=== PATIENT | female | born 1945 | race Caucasian/White ===

== ENCOUNTER 2018-09-16 12:32 | Outpatient (CLI) | payer MEDICARE, BC ==
--- NOTE | 2018-09-17 08:58 | Mammography Report ---
Reason: SCREENING MAMMO Procedure Date: 09/16/2018 Accession Number: [id number] / [id number] Procedure: GLENN - Screening Mammo w/Michael CPT Code: FULL RESULT: EXAM: Screening Mammo w/Michael DATE: 09/16/2018 1:06 PM CLINICAL HISTORY: Screening encounter. History of left breast lumpectomy without reported history of breast cancer. Family history of breast cancer in the mother at age 60. TECHNIQUE: Bilateral CC and MLO views were obtained. COMPARISON: 03/26/2015 through 08/09/2012. FINDINGS: The breasts demonstrate scattered fibroglandular densities bilaterally. Coarse typically benign calcifications are identified. No suspicious masses, clustered microcalcifications, or regions of architectural distortion are identified. IMPRESSION: Benign findings RECOMMENDATION: Routine annual screening unless otherwise clinically indicated. BIRADS CATEGORY 2: Benign findings STANDARD QUALIFYING STATEMENTS: 1. This examination was not reviewed with the aid of Computer-Aided Detection (CAD). 2. A negative or benign imaging report should not preclude biopsy if clinically suspicious findings are present. 3. Dense breasts may obscure an underlying neoplasm. 4. This examination was reviewed with the aid of 3D breast imaging (tomosynthesis).
== END 2018-09-16 12:33 | disposition home or self-care (01) ==
LOC: DI 12:32
PROVIDERS: ATTEND Internal Medicine
DX: Z12.31 Encounter for screening mammogram for malignant neoplasm of breast (principal); Z80.3 Family history of malignant neoplasm of breast
CPT/HCPCS: 77063; 77067

== ENCOUNTER 2019-08-15 16:20 | Outpatient (CLI) | payer MEDICARE, BC ==
--- NOTE | 2019-08-17 10:06 | XRAY Report ---
Reason: COUGH Procedure Date: 08/15/2019 Accession Number: [id number] / [id number] Procedure: XR - Chest 2 View X-Ray CPT Code: 56171 Final Report FULL RESULT: EXAM: CHEST RADIOGRAPHY EXAM DATE: 08/15/2019 04:31 PM. CLINICAL HISTORY: COUGH. COMPARISON: None. TECHNIQUE: 2 views. FINDINGS: Lungs/Pleura: Central bronchial wall thickening noted. No focal consolidation. No pleural effusion or pneumothorax. Mediastinum: Heart and mediastinal contours are unremarkable. Other: None. IMPRESSION: 1. Central bronchial wall thickening could reflect underlying reactive airways and bronchitis. No evidence of pneumonia. RADIA
== END 2019-08-15 16:21 | disposition home or self-care (01) ==
LOC: DI 16:20
PROVIDERS: ATTEND Internal Medicine
DX: R05 Cough (principal)
CPT/HCPCS: 71046

== ENCOUNTER 2019-09-03 13:11 | Outpatient (CLI) | payer MEDICARE, BC | END 2019-09-03 13:12 | disposition home or self-care (01) | LOC: RT 13:11 | PROVIDERS: ATTEND Internal Medicine | DX: R05 Cough (principal) | CPT/HCPCS: 94010 ==

== ENCOUNTER 2021-01-03 12:53 | Outpatient (CLI) | payer MEDICARE, BC ==
[2021-01-03 13:21] LABS: BASOPHILS # (AUTO) 0.1 10^3/uL (0.0-0.1); BASOPHILS % (AUTO) 0.9 %; EOSINOPHILS # (AUTO) 0.2 10^3/uL (0.0-0.7); EOSINOPHILS % (AUTO) 3.4 %; HCT - HEMATOCRIT 41.1 % (37.0-47.0); HGB - HEMOGLOBIN 13.5 g/dL (12.0-16.0); LYMPHOCYTES # (AUTO) 1.3 10^3/uL (1.5-3.5); LYMPHOCYTES % (AUTO) 23.3 %; MEAN CORPUSCULAR HEMOGLOBIN 31.6 pg (27.0-31.0); MEAN CORPUSCULAR HGB CONC 32.8 g/dL (32.0-36.0); MEAN CORPUSCULAR VOLUME 96.3 fL (81.0-99.0); MEAN PLATELET VOLUME 8.9 fL (7.9-10.8); MONOCYTES # (AUTO) 0.4 10^3/uL (0.0-1.0); MONOCYTES % (AUTO) 6.5 %; NEUTROPHILS # (AUTO) 3.6 10^3/uL (1.5-6.6); NEUTROPHILS % (AUTO) 65.5 %; PLT - PLATELET COUNT 201 10^3/uL (130-450); RED BLOOD COUNT 4.27 10^6/uL (4.20-5.40); RED CELL DISTRIBUTION WIDTH 12.6 % (12.0-15.0); WHITE BLOOD COUNT 5.5 x10^3/uL (4.8-10.8)
[2021-01-03 13:24] LABS: ALBUMIN 4.2 g/dL (3.2-5.5); ALBUMIN/GLOBULIN RATIO 1.3 (1.0-2.2); BILIRUBIN,TOTAL 0.4 mg/dL (0.2-1.0); CALCIUM 10.6 mg/dL (8.5-10.3); CREATININE 0.8 mg/dL (0.4-1.0); POTASSIUM 4.1 mmol/L (3.5-5.0); TOTAL PROTEIN 7.4 g/dL (6.7-8.2)
== END 2021-01-03 12:54 | disposition home or self-care (01) ==
LOC: LAB 12:53
PROVIDERS: ATTEND Internal Medicine Gastroenterology
DX: K51.90 Ulcerative colitis, unspecified, without complications (principal)
CPT/HCPCS: 36415; 80053; 85025

== ENCOUNTER 2022-08-05 08:00 | Outpatient (CLI) | payer MEDICARE, BC ==
[2022-08-05 15:54] LABS: BASOPHILS # (AUTO) 0.1 10^3/uL (0.0-0.1); BASOPHILS % (AUTO) 1.3 %; HGB - HEMOGLOBIN 13.5 g/dL (12.0-16.0); LYMPHOCYTES # (AUTO) 1.5 10^3/uL (1.5-3.5); LYMPHOCYTES % (AUTO) 24.1 %; MEAN CORPUSCULAR HEMOGLOBIN 30.8 pg (27.0-31.0); MEAN CORPUSCULAR HGB CONC 32.9 g/dL (32.0-36.0); MEAN CORPUSCULAR VOLUME 93.6 fL (81.0-99.0); MEAN PLATELET VOLUME 10.3 fL (7.9-10.8); MONOCYTES # (AUTO) 0.5 10^3/uL (0.0-1.0); MONOCYTES % (AUTO) 7.6 %; NEUTROPHILS # (AUTO) 4.2 10^3/uL (1.5-6.6); NEUTROPHILS % (AUTO) 66.8 %; PLT - PLATELET COUNT 218 10^3/uL (130-450); RED BLOOD COUNT 4.38 10^6/uL (4.20-5.40); RED CELL DISTRIBUTION WIDTH 12.2 % (12.0-15.0); WHITE BLOOD COUNT 6.3 x10^3/uL (4.8-10.8)
[2022-08-05 16:19] LABS: ALBUMIN 4.1 g/dL (3.2-5.5); ALBUMIN/GLOBULIN RATIO 1.3 (1.0-2.2); ALKALINE PHOSPHATASE 59 IU/L (42-121); ALT ALANINE AMINOTRANSFERASE 22 IU/L (10-60); AST ASPARTATE AMINOTRANSFERASE 20 IU/L (10-42); BILIRUBIN,TOTAL 0.6 mg/dL (0.2-1.0); BUN - BLOOD UREA NITROGEN 13 mg/dL (6-20); CALCIUM 9.4 mg/dL (8.5-10.3); CARBON DIOXIDE - CO2 25 mmol/L (21-32); CHLORIDE 97 mmol/L (101-111); CHOL/HDL RATIO 2.9 (<4.4); CHOLESTEROL 228 mg/dL; CREATININE 0.7 mg/dL (0.4-1.0); GFR - MDRD 82 (>89); GLUCOSE 94 mg/dL (70-100); HDL CHOLESTEROL 79 mg/dL; LDL CHOLESTEROL,CALCULATED 135 mg/dL; LDL/HDL RATIO 1.7 (<4.4); SODIUM 134 mmol/L (135-145); TOTAL PROTEIN 7.2 g/dL (6.7-8.2); TRIGLYCERIDES 70 mg/dL; VLDL CHOLESTEROL 14 mg/dL
[2022-08-05 22:14] LABS: ESTIMATED AVERAGE GLUCOSE 114 mg/dL (70-100); HEMOGLOBIN A1c% 5.6 % (4.27-6.07)
== END 2022-08-05 23:59 | disposition home or self-care (01) ==
LOC: LAB.R 08:00
PROVIDERS: ATTEND Internal Medicine
DX: Z00.00 Encounter for general adult medical examination without abnormal findings (principal); M25.50 Pain in unspecified joint; R73.01 Impaired fasting glucose; Z79.899 Other long term (current) drug therapy; L20.9 Atopic dermatitis, unspecified; J45.991 Cough variant asthma; R25.2 Cramp and spasm; L72.3 Sebaceous cyst; N95.1 Menopausal and female climacteric states; K51.90 Ulcerative colitis, unspecified, without complications
CPT/HCPCS: 80053; 80061; 83036; 83721; 84443; 85025

== ENCOUNTER 2023-09-11 15:58 | Outpatient (CLI) | payer MEDICARE, BC ==
--- NOTE | 2023-09-13 08:14 | XRAY Report ---
PROCEDURE: Hip w/Pelvis 2-3V RT INDICATIONS: PAIN IN RIGHT HIP TECHNIQUE: AP pelvis with lateral view(s) of the right hip(s). COMPARISON: None. FINDINGS: Bones: No fractures or dislocations. No suspicious bony lesions. Mild osteoarthritic changes in hip s and sacroiliac joint bilaterally. Bpaxrwkv-qq-vqsjjv degenerative disc disease in the lower lumbar spine. Soft tissues: No suspicious soft tissue calcifications or masses. Sclerotic densities projecting t o the left proximal thigh. IMPRESSION: 1. No acute bony abnormality. 2. Mild osteoarthritis. 3. Rhqjceww-mi-amsikr degenerative disc disease in the lower lumbar spine. 4. Sclerotic densities projecting to the left proximal thigh. Differential diagnoses are soft tissue ossification versus sclerotic bone lesions. Recommend 2 view left hip radiograph for further evaluat ion. Reviewed by: Kika Chavira MD on 09/13/2023 8:13 AM PST Approved by: Kika Chavira MD on 09/13/2023 8:13 AM PST Station ID: [id number]
== END 2023-09-11 15:59 | disposition home or self-care (01) ==
LOC: DI 15:58
PROVIDERS: ATTEND Internal Medicine
DX: M54.30 Sciatica, unspecified side (principal); M16.11 Unilateral primary osteoarthritis, right hip; M51.36 Other intervertebral disc degeneration, lumbar region; R93.6 Abnormal findings on diagnostic imaging of limbs

== ENCOUNTER 2023-10-16 11:11 | Outpatient (CLI) | payer MEDICARE, BC ==
--- NOTE | 2023-10-16 11:44 | XRAY Report ---
PROCEDURE: Hip w/Pelvis 2-3V LT INDICATIONS: HIP PAIN TECHNIQUE: AP and lateral view left hip were obtained. COMPARISON: Hip x-ray 09/11/2023 FINDINGS: No visualized fracture or dislocation. Bilateral mild to moderate arthritic narrowing of the hip join ts as well as prominent degenerative changes in the lower lumbar spine. Areas of calcification overlying the left hip seen on previous AP pelvis appear to be predominantly o verlying the soft tissues adjacent to the femur as seen on lateral view. However, despite lateral vie w, several areas of calcification still overlie the cortex. IMPRESSION: Calcifications appearing to be predominantly within the soft tissues adjacent to the left femur as ab ove. Further evaluation with CT pelvis is recommended for further evaluation of location and appearan ce. Reviewed by: Jess Pruett MD on 10/16/2023 11:43 AM PST Approved by: Jess Pruett MD on 10/16/2023 11:43 AM PST Station ID: [id number]
== END 2023-10-16 11:12 | disposition home or self-care (01) ==
LOC: DI 11:11
PROVIDERS: ATTEND Internal Medicine
DX: M25.551 Pain in right hip (principal); M79.9 Soft tissue disorder, unspecified

== ENCOUNTER 2023-11-06 11:20 | Outpatient (CLI) | payer MEDICARE, BC ==
[2023-11-06 11:33] LABS: BASOPHILS # (AUTO) 0.1 10^3/uL (0.0-0.1); BASOPHILS % (AUTO) 0.8 %; EOSINOPHILS % (AUTO) 0.3 %; HCT - HEMATOCRIT 38.8 % (37.0-47.0); HGB - HEMOGLOBIN 12.6 g/dL (12.0-16.0); LYMPHOCYTES # (AUTO) 1.4 10^3/uL (1.5-3.5); MEAN CORPUSCULAR HEMOGLOBIN 31.2 pg (27.0-31.0); MEAN CORPUSCULAR HGB CONC 32.5 g/dL (32.0-36.0); MEAN PLATELET VOLUME 8.6 fL (7.9-10.8); MONOCYTES # (AUTO) 0.4 10^3/uL (0.0-1.0); MONOCYTES % (AUTO) 5.9 %; NEUTROPHILS # (AUTO) 4.6 10^3/uL (1.5-6.6); NEUTROPHILS % (AUTO) 70.7 %; PLT - PLATELET COUNT 217 10^3/uL (130-450); RED BLOOD COUNT 4.04 10^6/uL (4.20-5.40); RED CELL DISTRIBUTION WIDTH 12.4 % (12.0-15.0); WHITE BLOOD COUNT 6.5 x10^3/uL (4.8-10.8)
[2023-11-06 11:58] LABS: ESTIMATED AVERAGE GLUCOSE 103 mg/dL (70-100); HEMOGLOBIN A1c% 5.2 % (4.27-6.07)
[2023-11-06 12:03] LABS: ALBUMIN 3.9 g/dL (3.2-5.5); ALBUMIN/GLOBULIN RATIO 1.3 (1.0-2.2); ALKALINE PHOSPHATASE 58 IU/L (42-121); ALT ALANINE AMINOTRANSFERASE 16 IU/L (10-60); AST ASPARTATE AMINOTRANSFERASE 18 IU/L (10-42); BILIRUBIN,TOTAL 0.5 mg/dL (0.2-1.0); BUN - BLOOD UREA NITROGEN 16 mg/dL (6-20); CALCIUM 9.6 mg/dL (8.5-10.3); CARBON DIOXIDE - CO2 29 mmol/L (21-32); CHLORIDE 103 mmol/L (101-111); CHOL/HDL RATIO 3.2 (<4.4); CHOLESTEROL 247 mg/dL; CREATININE 0.7 mg/dL (0.6-1.3); GFR - MDRD 81 (>89); GLUCOSE 100 mg/dL (74-104); HDL CHOLESTEROL 77 mg/dL; LDL CHOLESTEROL,CALCULATED 154 mg/dL; SODIUM 138 mmol/L (135-145); TOTAL PROTEIN 6.9 g/dL (6.4-8.9); TRIGLYCERIDES 82 mg/dL (48-352); VLDL CHOLESTEROL 16 mg/dL
[2023-11-06 12:10] LABS: THYROID STIMULATING HORMONE 1.39 uIU/mL (0.34-5.60)
== END 2023-11-06 11:21 | disposition home or self-care (01) ==
LOC: LAB 11:20
PROVIDERS: ATTEND Internal Medicine
DX: Z00.00 Encounter for general adult medical examination without abnormal findings (principal); J45.991 Cough variant asthma; R73.01 Impaired fasting glucose; R63.8 Other symptoms and signs concerning food and fluid intake; Z79.899 Other long term (current) drug therapy; K51.90 Ulcerative colitis, unspecified, without complications
CPT/HCPCS: 36415; 80053; 80061; 83036; 83721; 84443; 85025

== ENCOUNTER 2023-11-09 12:08 | Outpatient (CLI) | payer MEDICARE, BC ==
--- NOTE | 2023-11-09 16:43 | CT Report ---
PROCEDURE: Pelvis WO INDICATIONS: HIP PAIN TECHNIQUE: Noncontrast 3 mm axial sections acquired through the bony pelvis, with coronal and sagittal reformatt ing. For radiation dose reduction, the following was used: automated exposure control, adjustment of mA and/or kV according to patient size. COMPARISON: Pelvic radiograph dated 09/11/2023. FINDINGS: Image quality: Excellent. Bones: Pelvic ring is intact. No acute pelvic or hip fracture. No dislocation. Osteoarthritic change s are noted in bilateral hip joints, sacroiliac joints and symphysis pubis. No evidence of avascular necrosis of femoral head. No suspicious bony lesions. Degenerative disc disease involves visualized l ower lumbar spine is seen. Soft tissues: Amorphous calcifications are noted left right gluteus medius muscle posterior to the l eft femoral neck and proximal femoral shaft. No other abnormal soft tissue calcifications are seen. N o significant joint effusion or calcified intra-articular loose bodies. No discrete soft tissue mass or drainable fluid collection. There is no pelvic free fluid or free air. No abnormal bowel wall thic kening. Bladder wall thickness is normal. Sigmoid diverticulosis is seen without sigmoid diverticulit is. No pelvic lymphadenopathy. No inguinal hernia. IMPRESSION: 1. Moderate osteoarthritic changes throughout bony pelvis. No acute fracture or dislocation. No evide nce of avascular necrosis of femoral head. Degenerative disc disease in visualized lower lumbar spine . 2. Amorphous calcifications involving left gluteus medius muscle posterior to the left femoral neck a nd proximal shaft and likely represent heterotopic ossification secondary to prior injury/infection. No gross soft tissue mass or drainable fluid collection. No other abnormal soft tissue calcifications . No significant joint effusion or calcified intra-articular loose bodies. 3. No pelvic free fluid or free air. Sigmoid diverticulosis without evidence of acute diverticulitis. No pelvic lymphadenopathy. Reviewed by: Jean Canchola MD on 11/09/2023 4:42 PM PST Approved by: Jean Canchola MD on 11/09/2023 4:42 PM PST Station ID: [id number]
== END 2023-11-09 12:09 | disposition home or self-care (01) ==
LOC: DI 12:08
PROVIDERS: ATTEND Internal Medicine
DX: M16.0 Bilateral primary osteoarthritis of hip (principal); M51.36 Other intervertebral disc degeneration, lumbar region; M61.9 Calcification and ossification of muscle, unspecified; K57.30 Diverticulosis of large intestine without perforation or abscess without bleeding

== ENCOUNTER 2023-11-17 10:57 | Outpatient (CLI) | payer MEDICARE, BC ==
--- NOTE | 2023-11-18 11:33 | Mammography Report ---
BILATERAL DIGITAL SCREENING MAMMOGRAM 3D/2D: 11/17/2023 CLINICAL: Routine screening. Comparison is made to exams dated: 01/12/2022 mammogram, 09/16/2018 mammogram, and 03/13/2015 mammogram - [facility]. There are scattered areas of fibroglandular density in both breasts (category b / 25%-50% glandular t issue). There is a possible new irregular focal asymmetry in the right breast at 10 o'clock posterior depth. No other significant masses, calcifications, or other findings are seen in either breast. IMPRESSION: INCOMPLETE: NEEDS ADDITIONAL IMAGING EVALUATION The possible new irregular focal asymmetry in the right breast is indeterminate. Additional views wi th possible ultrasound are recommended. Based on the Tyrer Cuzick model (a risk assessment model) the patient's lifetime risk is 6.0% and her 10 year risk is 0.0%. According to the ACR, ACS, and NCCN guidelines, an annual breast MRI exam yannick g with mammogram is recommended if the patient's lifetime risk is 20% or greater. This exam was interpreted at Station ID: [id number]. NOTE: For mammograms, a report in lay terms will be sent to the patient. Approximately 15% of breast malignancies will not be visualized mammographically. In the management of a palpable breast mass, a negative mammogram must not discourage biopsy of a clinically suspicious lesion. Electronically Signed By: Primo mclean/milagros:11/17/2023 12:24:29 ACR BI-RADS Category 0: Incomplete 3340F PARENCHYMAL PATTERN: (A) - The breast(s) demonstrate(s) scattered fibroglandular densities. BI-RADS CATEGORY: (0) - 0 Mammo and [place] [id number] Immediate follow-up LATERALITY: (R)
== END 2023-11-17 10:58 | disposition home or self-care (01) ==
LOC: DI 10:57
PROVIDERS: ATTEND Internal Medicine
DX: Z12.31 Encounter for screening mammogram for malignant neoplasm of breast (principal); R92.323 Mammographic fibroglandular density, bilateral breasts

== ENCOUNTER 2023-12-22 12:53 | Outpatient (CLI) | payer MEDICARE, BC ==
--- NOTE | 2023-12-23 09:41 | Mammography Report ---
UNILATERAL RIGHT DIGITAL DIAGNOSTIC MAMMOGRAM 3D/2D WITH SPOT COMPRESSION: 12/22/2023 CLINICAL: Patient returns today to evaluate a focal asymmetry in the right breast. Comparison is made to exams dated: 11/17/2023 mammogram, 01/12/2022 mammogram, 09/16/2018 mammogram, 03/26 mammogram, 03/13/2015 mammogram, and 02/06/2014 mammogram - [facility]. There are scattered areas of fibroglandular density in the right breast (category b / 25%-50% glandul ar tissue). There is a 0.9 cm irregular mass with a spiculated margin in the right breast at 9 o'clock posterior depth. This corresponds to focal asymmetry seen on recent screening mammogram. No other significant masses or calcifications are seen in the breast. IMPRESSION: INCOMPLETE: NEEDS ADDITIONAL IMAGING EVALUATION Right breast 0.9 cm irregular mass at 9 o'clock posterior depth. An ultrasound is recommended for fur ther evaluation and is scheduled to immediately follow this examination. Based on the Tyrer Cuzick model (a risk assessment model) the patient's lifetime risk is 6.0% and her 10 year risk is 0.0%. According to the ACR, ACS, and NCCN guidelines, an annual breast MRI exam yannick g with mammogram is recommended if the patient's lifetime risk is 20% or greater. This exam was interpreted at Station ID: [id number]. NOTE: For mammograms, a report in lay terms will be sent to the patient. Approximately 15% of breast malignancies will not be visualized mammographically. In the management of a palpable breast mass, a negative mammogram must not discourage biopsy of a clinically suspicious lesion. Electronically Signed By: Minerva Durham M.D., PH.D eb/:12/22/2023 14:12:09 ACR BI-RADS Category 0: Incomplete 3340F PARENCHYMAL PATTERN: (A) - The breast(s) demonstrate(s) scattered fibroglandular densities. BI-RADS CATEGORY: (0) - 0 Ultrasound [id number] Immediate follow-up LATERALITY: (B)
--- NOTE | 2023-12-23 09:42 | Ultrasound Report ---
LIMITED ULTRASOUND OF RIGHT BREAST AND AXILLA: 12/22/2023 CLINICAL: Patient returns today to evaluate a focal asymmetry in the right breast. Comparison is made to exams dated: 12/22/2023 mammogram, 11/17/2023 mammogram, 01/12/2022 mammogram, 09/16 mammogram, 03/26/2015 mammogram, and 03/13/2015 mammogram - [facility]. Color flow ultrasound of the right breast 9 o'clock, and axilla regions was performed. Lemon scale im ages of the real-time examination were reviewed. There is a 0.9 cm x 1.0 cm x 0.9 cm irregular mass with a spiculated margin in the right breast at 9 o'clock, 8 cm from the nipple. This mass corresponds to the mammographic mass. No abnormal lymph nodes are seen in the axilla. IMPRESSION: SUSPICIOUS OF MALIGNANCY Right breast 1.0 cm spiculated mass at 9 o'clock. Finding is suspicious of malignancy. Recommend ult rasound guided core biopsy. Findings and recommendations were discussed with the patient by Dr. Griffiths during today's examination. This exam was interpreted at Station ID: [id number]. Electronically Signed By: Minerva Durham M.D., PH.D eb/:12/22/2023 14:20:56 Ultrasound BI-RADS: 4 Suspicious for malignancy BI-RADS CATEGORY: (4) - 4 Biopsy [id number] Immediate follow-up LATERALITY: (R)
== END 2023-12-22 12:54 | disposition home or self-care (01) ==
LOC: DI 12:53
PROVIDERS: ATTEND Internal Medicine
DX: N63.15 Unspecified lump in the right breast, overlapping quadrants (principal); R92.321 Mammographic fibroglandular density, right breast

== ENCOUNTER 2024-01-11 13:51 | Outpatient (CLI) | payer MEDICARE, BC ==
[2024-01-11] MEDS ORDERED: LIDOCAINE-MPF 1% 5 ML VIAL ONE (15:26)
[2024-01-11] MEDS ORDERED: LIDOCAINE 1%-EPI 1:100000 20 ML MDV ONE (15:26)
[2024-01-11] MEDS: LIDOCAINE-MPF 1% 5 ML VIAL TD ONE (15:39)
[2024-01-11] MEDS: LIDOCAINE 1%-EPI 1:100000 20 ML MDV SUBQ ONE (15:40)
--- NOTE | 2024-01-13 10:12 | Mammography Report ---
UNILATERAL RIGHT DIGITAL DIAGNOSTIC MAMMOGRAM - RIGHT BREAST POST-PROCEDURE IMAGING FOR MARKER PLACEM ENT: 01/11/2024 CLINICAL: Post right breast ultrasound biopsy clip placement imaging. Comparison is made to exams dated: 12/22/2023 mammogram, 12/22/2023 ultrasound, 11/17/2023 mammogram, an d 01/12/2022 mammogram - [facility]. There are scattered areas of fibroglandular density in the right breast (category b / 25%-50% glandul ar tissue). There is a marker clip in the right breast at 11 o'clock posterior depth. This marker clip placement is along the medial margin of the asymmetry, about 0.8 cm from the epicenter of the mass and about 0 .9 cm deep to the epicenter of the mass. IMPRESSION: POST PROCEDURE MAMMOGRAM FOR MARKER PLACEMENT Marker clip placement in the right breast posterior depth is at the biopsy site, slightly medial and deep to the epicenter of the mass. Based on the Tyrer Cuzick model (a risk assessment model) the patient's lifetime risk is 6.0% and her 10 year risk is 0.0%. According to the ACR, ACS, and NCCN guidelines, an annual breast MRI exam yannick g with mammogram is recommended if the patient's lifetime risk is 20% or greater. This exam was interpreted at Station ID: [id number]. NOTE: For mammograms, a report in lay terms will be sent to the patient. Approximately 15% of breast malignancies will not be visualized mammographically. In the management of a palpable breast mass, a negative mammogram must not discourage biopsy of a clinically suspicious lesion. Electronically Signed By: Daisy forbes/:01/12/2024 10:13:06 ACR BI-RADS Category Post-procedure mammogram for marker placement PARENCHYMAL PATTERN: (A) - The breast(s) demonstrate(s) scattered fibroglandular densities. BI-RADS CATEGORY: () - Unspecified - other recall n/a LATERALITY: (B)
--- NOTE | 2024-01-15 10:33 | Ultrasound Report ---
ULTRASOUND GUIDED BIOPSY RIGHT BREAST USING VACUUM DEVICE WITH MARKING DEVICE INSERTED AND POST DIGIT AL MAMMOGRAPHIC IMAGIN01/12/2024 CLINICAL: Right breast mass. PATIENT CONSENT: Risks (minor bleeding, infection, vasovagal reaction and repeat procedure), benefits and alternatives were explained to the patient and written informed consent was obtained. Correlation is made to exams dated: 01/11/2024 mammogram, 12/22/2023 ultrasound, 12/22/2023 mammogram, mammogram, 01/12/2022 mammogram, and 09/16/2018 mammogram - [facility]. An ultrasound guided biopsy using real-time ultrasound was performed for the 0.7 cm x 0.7 cm x 0.5 cm mass located in the right breast at 9 o'clock middle depth 8 cm from the nipple. The skin was prepp ed in the usual manner. Local anesthetic was administered to the access site. A skin samantha was made in the breast. The abnormality was approached from the lateral aspect. A 13 gauge biopsy needle was placed adjacent to the abnormality under ultrasound guidance. Once the needle was documented to be in the correct location, four specimens were obtained using the Mammotome biopsy system. The patient received additional local anesthetic during the procedure. A clip was inserted into the biopsy cavity. A skin closure strip and a sterile dressing were applied to the access site. Post procedure digital mammographic imaging demonstrates the location device 0. 8cm medial, 0.8cm posterior from the geometric center of the targeted area. The specimens were sent to the laboratory for pathological analysis. IMPRESSION: ULTRASOUND GUIDED BIOPSY MALIGNANT Ultrasound guided biopsy of the 0.7 cm x 0.7 cm x 0.5 cm mass in the right breast at 9 o'clock middle depth 8 cm from the nipple was successful. Pathology indicates malignant invasive ductal carcinoma (ID). Pathology results are concordant with imaging findings. A surgical/oncologic consultation is recommended. This exam was interpreted at Station ID: [id number]. Daisy forbes,slc/:01/14/2024 13:15:45 BI-RADS CATEGORY: () - Unspecified - other recall n/a LATERALITY: (B)
== END 2024-01-11 13:52 | disposition home or self-care (01) ==
LOC: DI 13:51
PROVIDERS: ATTEND Internal Medicine
DX: C50.811 Malignant neoplasm of overlapping sites of right female breast (principal); Z17.0 Estrogen receptor positive status [ER+]
CPT/HCPCS: 19083

== ENCOUNTER 2024-03-21 07:25 | Day surgery (SDC) | payer MEDICARE, BC ==
[~2024-03-21 07:25] MED LIST: ACETAMINOPHEN 500 MG TABLET PO ONE; ALPRAZolam 0.25 MG TABLET PO ONE; ceFAZolin 2 GM VIAL ONE
[2024-03-21] MEDS ORDERED: LIDOCAINE 1%-EPI 1:100000 20 ML MDV ONE (07:52)
[2024-03-21] MEDS ORDERED: fentaNYL 100 MCG/2 ML VIAL ONE ×2 (07:52→09:42)
[2024-03-21] MEDS ORDERED: BUPIVACAINE 0.5% PF 10 ML VIAL ONE (07:52)
[2024-03-21] MEDS ORDERED: LIDOCAINE-MPF 1% 5 ML VIAL ONE (07:57)
--- NOTE | 2024-03-21 08:20 | ANESTHESIA ---
Pre-Anesthesia VS, & Labs - Diagnosis breast node - Procedure breast lumpectomy R Vital Signs: Temp Pulse Resp BP Pulse Ox O2 Flow Rate 36.7 C 69 15 130/71 100 03/21/24 07:50 03/21/24 07:50 03/21/24 07:50 03/21/24 07:50 03/21/24 07:50 Height: 5 ft 6 in Weight (kg): 71 kg Body Mass Index: 25.2 BMI Classification: Overweight - NPO >8 hours - Is Patient ?: No Home Medications and Allergies Home Medications: Ambulatory Orders Aspirin [Aspirin EC] 1 - 2 tab PO DAILY 03/11/24 Cholecalciferol (Vitamin D3) [Vitamin D3] 50 mcg PO DAILY 03/11/24 Calcium Carb/Vit D3/Minerals [Eql Calcium 600+D & Min Ch Tb] 2 each PO DAILY 12/25/15 Mesalamine [Lialda] 2 tab PO BID 12/25/15 Omeprazole 20 mg PO DAILY 12/25/15 Cetirizine [ZyrTEC] 40 mg PO DAILY 02/02/24 Fluticasone Propion/Salmeterol [Wixela 250-50 Inhub] 1 each IH BID 02/02/24 Fluticasone Propionate 1 inh GERARD DAILY 02/02/24 Meclizine HCl 25 mg PO PRN PRN 02/02/24 Potassium Citrate [Potassium] 1 - 2 tab PO DAILY 02/02/24 Propylene Glycol/Peg 400/Pf [Systane Ultra 0.4-0.3% Eye Drp] 1 each OP PRN PRN 02/02/24 Aspirin [Aspirin EC] 1 - 2 tab PO DAILY 03/11/24 Cholecalciferol (Vitamin D3) [Vitamin D3] 50 mcg PO DAILY 03/11/24 Allergies/Adverse Reactions: Allergies Allergy/AdvReac Type Severity Reaction Status Date / Time Penicillins Allergy Respiratory Verified 02/02/24 16:02 Anes History & Medical History - Anesthetic History Anesthesia Complications: reports: No previous complications Family history of Anesthesia Complications: Denies Family history of Malignant Hyperthermia: Denies - Medical History Cardiovascular: reports: None Pulmonary: reports: Asthma Gastrointestinal: reports: GERD, Colon polyps, Ulcerative colitis Urinary: reports: None Neuro: reports: None Musculoskeletal: reports: Osteoarthritis Endocrine/Autoimmune: reports: None Blood Disorders: reports: None Skin: reports: None Smoking Status: Former smoker Psychosocial: reports: No issues indicated History of Cancer?: No - Surgical History General: reports: Colonoscopy Eyes Ears Nose Throat (EENT): reports: Tonsil/Adenoidectomy Gynecologic: reports: Tubal ligation, Hysterectomy Results - EKG Results EKG Comparison: Reviewed EKG, Normal EKG Exam General: Alert, Oriented x3, Cooperative, No acute distress Dental: TMJ, Poor dentition Mouth Openin Fingerbreadth Neck Mobility: Normal Mallampati classification: I Thyromental Distance: 4-6 cm Respiratory: Lungs clear, Normal breath sounds, No respiratory distress, No accessory muscle use Cardiovascular: Regular rate, Normal S1, Normal S2, No murmurs Mental/Cognitive Status: Alert/Oriented X3, Normal for patient Cognitive Status: Within normal limits Plan Anesthesia Type: General Consent for Procedure(s) Verified and Reviewed: Yes Code Status: Attempt Resuscitation ASA classification: 2-Mild systemic disease Is this case an emergency?: No
[2024-03-21] MEDS ORDERED: DEXAMETHASONE 4 MG/ML VIAL ONE ×2 (08:53→09:42)
[2024-03-21] MEDS ORDERED: ONDANSETRON 4 MG/2 ML VIAL ONE ×2 (08:53→09:42)
[2024-03-21] MEDS ORDERED: diphenhydrAMINE INJ 50 MG/ML VIAL ONE ×2 (08:53→09:42)
[2024-03-21] MEDS ORDERED: LIDOCAINE-PF 2% 10 ML AMP SUBQ ONE ×2 (09:06→09:42)
[2024-03-21] MEDS ORDERED: PROPOFOL 200 MG/20 ML VIAL IVP ONE ×4 (09:06→09:42)
[2024-03-21] MEDS: LIDOCAINE-MPF 1% 5 ML VIAL TD ONE (09:26)
[2024-03-21] MEDS ORDERED: PHENYLEPHRINE HCL 0.5 MG/5 ML AMPULE ONE (09:43)
[2024-03-21] MEDS ORDERED: ePHEDrine 50 MG/ML VIAL IVP ONE (09:44)
[2024-03-21] MEDS: BUPIVACAINE 0.5% PF 10 ML VIAL SUBQ ONE ×2 (10:02)
[2024-03-21] MEDS: LIDOCAINE 1%-EPI 1:100000 20 ML MDV SUBQ ONE ×2 (10:02)
[2024-03-21] MEDS ORDERED: IBUPROFEN 400 MG TABLET PO PRN (10:50)
[2024-03-21] MEDS ORDERED: oxyCODONE 5 MG TABLET PO PRN (10:50)
[2024-03-21] MEDS ORDERED: ACETAMINOPHEN 500 MG TABLET PO PRN (10:50)
[2024-03-21] MEDS ORDERED: ONDANSETRON 4 MG/2 ML VIAL IVP PRN ×2 (10:50→11:00)
[2024-03-21] MEDS ORDERED: HYDROmorphone 0.5 MG/0.5 ML SYRINGE IVP PRN ×2 (10:50→11:00)
[2024-03-21] MEDS: LACTATED RINGERS 1,000 ML IV ONE (10:53)
--- NOTE | 2024-03-21 10:56 | OPERATIVE REPORT ---
Operative Report - General Procedure Date: 03/21/24 Planned Procedure: right lumpectomy with wire localization Pre-Op Diagnosis: invasive ductal carcinoma Procedure Performed: right lumpectomy with wire localization Post Op Diagnosis: invasive ductal carcinoma - Procedure Note Primary Surgeon: Dr. Mihaela Hernandez Anesthesia Provider: Michelle Lu CRNA Anesthesia Technique: General LMA Pathology: 1.right lumpectomy 2. re excision of medial margin Estimated Blood Loss (mL): 10 Indications: The patient presented for her screening mammogram and had an abnormal finding. Subsequent imaging and biopsy revealed a small invasive ductal carcinoma in the right breast. She was seen and evaluated in clinic where we discussed the risks, benefits, and alternatives of lumpectomy versus mastectomy. Risks include bleeding, infection, damage to surrounding structures, positive margin requiring reexcision, numbness and pain in the area of the incision, and the need for further surgeries or procedures. In discussion with her medical oncologist, sentinel lymph node biopsy was not recommended as it is unlikely to change her course of treatment. The patient voiced understanding, her questions were answered, and she wished to proceed with wire localized lumpectomy of the right breast. A consent was signed in clinic. Findings: 1. Clip present in lumpectomy specimen on specimen mammogram, medial margin palpably close 2. Medial margin reexcised Complications: None - Other Other Information/Narrative: The patient was taken to the operating room and placed in the supine position. Preop antibiotics were given. ERAS medications were given. The patient was prepped and draped in the usual sterile fashion. A preop surgical timeout was performed. Attention was turned to the patient's right breast. An incision was made following the patient's skin folds, at the 9 o'clock position, N + 5. Skin flaps were raised superiorly and inferiorly to the incision and the wire was incorporated into the incision. The dissection was carried down to the thick part of the wire using electrocautery. At this point, serrated scissors were used to perform a lumpectomy staying approximately 1 cm away from the wire in all dimensions. The lumpectomy specimen was removed and oriented with suture on the back table. At this time, the medial margin was noted to be palpably close on the specimen. The specimen was sent to mammography and the biopsy clip was confirmed to be within the specimen.The edges of the lumpectomy cavity were inspected and there were no palpable abnormalities but due to the palpably close lesion on inspection of the specimen, I elected to reexcised medial margin. This was also oriented and sent as a separate specimen.. Hemostasis was confirmed. The lumpectomy cavity was irrigated with warm normal saline. Clips were placed in the superior, inferior, medial, lateral, anterior, and posterior margins of the lumpectomy cavity. The deep dermal tissues were closed with 3-0 Vicryl in an interrupted fashion. The skin was closed with 4-0 Monocryl in a running subcuticular fashion. The patient tolerated the procedure well. There were no complications. Synoptic Breast SNB - [place] Node Biopsy Operation performed with curative intent: Yes Tracer(s) used to identify sentinel nodes in the upfront surgery (non- neoadjuvant) setting (select all that apply): N/A (No sentinel lymph node evaluation was undertaken at the recommendation of medical oncologist as it is unlikely to sports management professor in this patient due to advanced age.) Tracer(s) used to identify sentinel nodes in the neoadjuvant setting (select all that apply): N/A All nodes (colored or non-colored) present at the end of a dye-filled lymphatic channel were removed: N/A All significantly radioactive nodes were removed: N/A All palpably suspicious nodes were removed: N/A Biopsy-proven positive nodes marked with clips prior to chemotherapy were identified and removed: N/A
[2024-03-21] MEDS ORDERED: ATROPINE ABBOJECT 1 MG/10 ML SYRINGE IVP PRN (11:00)
[2024-03-21] MEDS ORDERED: LACTATED RINGERS 1,000 ML IV SCH (11:00)
[2024-03-21] MEDS ORDERED: MORPHINE 2 MG/ML CARPUJECT IVP PRN (11:00)
[2024-03-21] MEDS ORDERED: NALOXONE 0.4 MG/ML VIAL IVP PRN (11:00)
[2024-03-21] MEDS ORDERED: fentaNYL 100 MCG/2 ML VIAL IVP PRN (11:00)
[2024-03-21] MEDS ORDERED: ePHEDrine 50 MG/ML VIAL IVP PRN (11:00)
[2024-03-21 11:17] VITALS: O2SAT 98
[2024-03-21 12:03] VITALS: BP 109/60
--- NOTE | 2024-03-21 16:55 | ANESTHESIA POST OP EVALUATION ---
Anesthesia Post Eval - Post Anesthesia Eval Vitals: Last Vital Signs Temp 36.6 C 03/21/24 11:55 Pulse 66 03/21/24 11:55 Resp 16 03/21/24 11:55 BP 109/60 03/21/24 11:55 Pulse Ox 98 03/21/24 11:55 O2 Flow Rate CV Function Including HR & BP: Stable Pain Control: Satisfactory Nausea & Vomiting: Negative Mental Status: Baseline Respiratory Status: Airway Patent Hydration Status: Satisfactory Anesthesia Complications: None
--- NOTE | 2024-03-23 09:26 | Ultrasound Report ---
ULTRASOUND GUIDED WIRE LOCALIZATION RIGHT BREAST: 03/21/2024 CLINICAL: Pre op Right Breast wire localization with ultrasound. Correlation is made to exams dated: 01/12/2024 ultrasound biopsy, 01/11/2024 mammogram, 12/22/2023 ultras ound, 12/22/2023 mammogram, 11/17/2023 mammogram, and 01/12/2022 mammogram - [facility]. A wire localization using ultrasound guidance was performed for the 0.9 cm x 1 cm x 0.9 cm lesion loc ated in the right breast at 9 o'clock posterior depth 8 cm from the nipple. The skin was prepped in the usual manner. A wire was inserted into the targeted area under ultrasound guidance. IMPRESSION: WIRE LOCALIZATION Wire localization for the 0.9 cm x 1 cm x 0.9 cm lesion in the right breast at 9 o'clock posterior de pth 8 cm from the nipple was successful. This exam was interpreted at Station ID: [id number]. Michele Segura M.D. crm/:03/23/2024 08:45:23 BI-RADS CATEGORY: () - Unspecified - other recall n/a LATERALITY: (B)
--- NOTE | 2024-03-23 09:26 | Mammography Report ---
SPECIMEN RIGHT BREAST: 03/21/2024 CLINICAL: Right breast specimen. Correlation is made to exams dated: 03/21/2024 mammogram, 01/12/2024 ultrasound biopsy, 01/11/2024 mammog mitul, 12/22/2023 ultrasound, 12/22/2023 mammogram, and 11/17/2023 mammogram - [facility] . A specimen was imaged for the previous biopsy site located in the right breast at 9 o'clock middle d epth 8 cm from the nipple. IMPRESSION: SPECIMEN The imaged specimen includes a biopsy clip and the distal portion of the localization wire. This exam was interpreted at Station ID: [id number]. Michele Segura M.D. crm/:03/23/2024 08:53:10 BI-RADS CATEGORY: () - Unspecified - other recall n/a LATERALITY: (B)
--- NOTE | 2024-03-23 09:26 | Mammography Report ---
UNILATERAL RIGHT DIGITAL DIAGNOSTIC MAMMOGRAM 3D/2D WITH EXAGGERATED CC MEDIOLATERAL OBLIQUE: 03/21/20 24 CLINICAL: Post right breast wire placement. Comparison is made to exams dated: 01/12/2024 ultrasound biopsy, 01/11/2024 mammogram, 12/22/2023 ultraso und, 12/22/2023 mammogram, and 11/17/2023 mammogram - [facility]. There are scattered areas of fibroglandular density in the right breast (category b / 25%-50% glandul ar tissue). Wire localization of a mass in the right breast at 9 o'clock middle depth 8 cm from the nipple. Ther e is a biopsy clip associated with the mass. IMPRESSION: NEGATIVE Wire localization of a mass in the right breast at 9 o'clock middle depth 8 cm from the nipple. This exam was interpreted at Station ID: [id number]. NOTE: For mammograms, a report in lay terms will be sent to the patient. Approximately 15% of breast malignancies will not be visualized mammographically. In the management of a palpable breast mass, a negative mammogram must not discourage biopsy of a clinically suspicious lesion. Electronically Signed By: Michele Segura M.D. crm/:03/23/2024 08:50:54 ACR BI-RADS Category 1: Negative 3341F PARENCHYMAL PATTERN: (A) - The breast(s) demonstrate(s) scattered fibroglandular densities. BI-RADS CATEGORY: (1) - 1 Unspecified - other recall n/a LATERALITY: (B)
== END 2024-03-21 07:26 | disposition home or self-care (01) ==
LOC: DI 07:25
PROVIDERS: ATTEND Surgery
PROC: 0HBT0ZZ Excision of Right Breast, Open Approach (ICD-10-PCS; principal; 2024-03-21 09:30)
DX: C50.811 Malignant neoplasm of overlapping sites of right female breast (principal); Z17.0 Estrogen receptor positive status [ER+]; J45.909 Unspecified asthma, uncomplicated; Z87.891 Personal history of nicotine dependence
CPT/HCPCS: 19285; 19301; 76098; 77065; A9270; J1200; J2372; J7120

== ENCOUNTER 2024-06-09 15:52 | Emergency (ER) | payer MEDICARE, BC ==
[2024-06-09 16:18] VITALS: O2SAT 100
--- NOTE | 2024-06-09 16:27 | ED Physician Documentation ---
History of Present Illness - Stated complaint Stated Complaint: FACE LAC POST FALL - Chief complaint Chief Complaint: Laceration - Additonal information Additional information: 78-year-old female with history of asthma and ulcerative colitis presents emergency department for left eyebrow superficial laceration. Patient says that it was a mechanical ground-level fall she tripped over a hose and says that she fell onto her left eyebrow she says it was a very gentle fall no loss of consciousness she is not on blood thinners she denies any head pain or neck pain bleeding is well-controlled. PD PAST MEDICAL HISTORY - Past Medical History Past Medical History: Yes Cardiovascular: None Respiratory: Asthma Neuro: None Endocrine/Autoimmune: None GI: GERD, Colon polyps, Ulcerative colitis : None HEENT: Chronic vision loss Psych: None Musculoskeletal: Osteoarthritis Derm: None - Past Surgical History Past Surgical History: No General: Colonoscopy /[employer]: Tubal ligation, Hysterectomy HEENT: Tonsil/Adenoidectomy - Present Medications Home Medications: Ambulatory Orders Medication Instructions Recorded Confirmed Calcium Carb/Vit D3/Minerals [Eql 2 each PO DAILY 12/25/15 04/12/24 Calcium 600+D & Min Ch Tb] Mesalamine [Lialda] 2 tab PO BID 12/25/15 04/12/24 Omeprazole 20 mg PO DAILY 12/25/15 04/12/24 Cetirizine [ZyrTEC] 40 mg PO DAILY 02/02/24 04/12/24 Fluticasone Propion/Salmeterol 1 each IH BID 02/02/24 04/12/24 [Wixela 250-50 Inhub] Fluticasone Propionate 1 inh GERARD DAILY 02/02/24 04/12/24 Meclizine HCl 25 mg PO PRN PRN 02/02/24 04/12/24 Potassium Citrate [Potassium] 1 - 2 tab PO DAILY 02/02/24 04/12/24 Propylene Glycol/Peg 400/Pf 1 each OP PRN PRN 02/02/24 04/12/24 [Systane Ultra 0.4-0.3% Eye Drp] Aspirin [Aspirin EC] 1 - 2 tab PO DAILY 03/11/24 04/12/24 Cholecalciferol (Vitamin D3) 50 mcg PO DAILY 03/11/24 04/12/24 [Vitamin D3] oxyCODONE [Roxicodone] 5 mg PO Q4H PRN #5 tablet 03/21/24 04/12/24 polyethylene glycoL 3350(BULK) 17 gm PO DAILY #238 gm 03/21/24 04/12/24 [Miralax] - Allergies Allergies/Adverse Reactions: Allergies Allergy/AdvReac Type Severity Reaction Status Date / Time Penicillins Allergy Respiratory Verified 06/09/24 16:05 - Social History Does the pt smoke?: No Smoking Status: Never smoker Does the pt drink ETOH?: No Does the pt have substance abuse?: No - Immunizations Immunizations are current?: No - POLST Patient has POLST: No PD ED PE NORMAL - Vitals Vital signs reviewed: Yes - General General: Alert and oriented X 3, No acute distress, Well developed/nourished - HEENT HEENT: Other (left eyebrow laceration) - Neck Neck: No bony TTP, C-Spine cleared by NEXUS criteria - Cardiac Cardiac: RRR - Neuro Neuro: Alert and oriented X 3, fagot maker 2-12 intact, No motor deficit, No sensory deficit, Normal speech Eye Opening: Spontaneous Motor: Obeys Commands Verbal: Oriented GCS Score: 15 Results - Vitals Vitals: Vital Signs - 24 hr 06/09/24 06/09/24 16:00 17:17 Temperature 36.6 C 36.2 C L Heart Rate 73 67 Respiratory 20 16 Rate Blood Pressure 151/85 H 153/84 H O2 Saturation 100 100 Oxygen O2 Source Room air Procedures - Laceration (location) left eyebrow laceration Length in cm: 3 (Left eyebrow) Wound type: Linear Anesthesia: Lidocaine 1% with epi Wound preparation: Irrigated copiously NS Skin layer closure: Nylon, Interrupted, Size #-0 - enter number (5-0), Sutures - enter # (3) Other: Patient tolerated well, Dressing applied, Tetanus booster given PD Medical Decision Making - ED course ED course: Wound inspected under direct bright light with good visualization. Area with linear laceration across soft tissue through adipose without exposure of muscle belly or tendon. No overt foreign body. Area hemostatic. Area extensively irrigated with sterile normal saline under pressure. Laceration repaired in simple fashion With a total of 3 sutures. (please see procedure note for further details). Patient tolerated procedure well. I informed the patient that she should get a head CT and she declined understand the risk that she could have possible intracranial hemorrhage or bleed and understands symptoms of when to return to the ER if she starts to notice any of the symptoms of a brain bleed. Cautious return precautions discussed w/ full understanding. Wound care discussed. Prompt follow up with primary care physician discussed and return for suture removal in 5 days. Departure - Departure Disposition: 01 Home, Self Care Clinical Impression: Eyebrow laceration Qualifiers: Encounter type: initial encounter Laterality: left Qualified Code(s): S01.112A - Laceration without foreign body of left eyelid and periocular area, initial encounter Instructions: ED Laceration Facial Sutr Tape Comments: Come back for any signs of infection which would include: Redness, swelling, drainage, increased pain, or fevers. You can wash it soap and water. Keep it covered and moist with bacitracin ointment which is available over the counter; avoid neosporin. Follow-up with your physician in 5 days for suture removal. Forms: PCP List Discharge Date/Time: 06/09/24 17:18
[2024-06-09] MEDS: TETANUS/DIPHTHERIA/PERTUSSIS 0.5 ML SYRINGE IM ONE (16:31)
[2024-06-09] MEDS: BACITRACIN ZINC OINT 1 PACKET TOP STA (17:09)
[2024-06-09 17:20] VITALS: BP 153/84
== END 2024-06-09 17:18 | disposition home or self-care (01) ==
LOC: ED 15:52
DX: S01.112A Laceration without foreign body of left eyelid and periocular area, initial encounter (principal); W18.09XA Striking against other object with subsequent fall, initial encounter
CPT/HCPCS: 12013; 90471; 90715; 99283; A9270

== ENCOUNTER 2025-08-03 19:51 | Inpatient (IN) ==
--- OUTSIDE RECORDS SUMMARY | 2025-08-03 19:58 | EXTERNAL MEDICAL SUMMARY RPT | Continuity of Care Document ---
Author Organization [facility] Address [address] [place] [id number] Phone Problems date description facility 2025-07-21 11:37 Unspecified abnormal finding in specimens from other organs, systems and tissues [facility] 2025-07-22 00:02 Unspecified abnormal finding in specimens from other organs, systems and tissues [facility] 2025-07-31 20:40 Noninfective gastroenteritis an d colitis, unspecified [facility] 2025-08-02 14:14 Noninfective gastroenteritis an d colitis, unspecified [facility] 2025-08-02 14:14 Weakness [facility] Results/Labs test date facility value unit notes Result panel 1 ABNORMAL LYMPHS % (MANUAL) 2025-07-31 15:18 [facility] 0 % (missing) BASOPHILS # (MANUAL) 2025-07-31 15:18 [facility] 0.0 10 3/ul (missing) EOSINOPHILS # (MANUAL) 2025-07-31 15:18 [facility] 0.4 10 3/ul (missing) REACTIVE LYMPHS % (MANUAL) 2025-07-31 15:18 [facility] 1 % (missing) MONOCYTES # (MANUAL) 2025-07-31 15:18 [facility] 1.0 10 3/ul (missing) TOTAL CELLS COUNTED 2025-07-31 15:18 [facility] 100 (missing ) (missing) WHITE BLOOD COUNT 2025-07-31 15:18 [facility] 11.9 x10 3/ul (missing) HGB - HEMOGLOBIN 2025-07-31 15:18 [facility] 12.9 g/dl (missing) RED CELL DISTRIBUTION WIDTH 2025-07-31 15:18 [facility] 14.7 % (missing) LYMPHOCYTES # (MANUAL) 2025-07-31 15:18 [facility] 2.0 10 3/ul (missing) BAND NEUTROPHILS % (MANUAL) 2025-07-31 15:18 [facility] 22 % (missing) MEAN CORPUSCULAR HEMOGLOBIN 2025-07-31 15:18 [facility] 31.9 pg (missing) MEAN CORPUSCULAR HGB CONC 2025-07-31 15:18 [facility] 34.0 g/dl (missing) HCT - HEMATOCRIT 2025-07-31 15:18 [facility] 37.9 % (missing) PLT - PLATELET COUNT 2025-07-31 15:18 [facility] 374 10 3/ul (missing) RED BLOOD COUNT 2025-07-31 15:18 [facility] 4.05 10 6/ul (missing) NEUTROPHILS # (MANUAL) 2025-07-31 15:18 [facility] 8.6 10 3/ul (missing) MEAN PLATELET VOLUME 2025-07-31 15:18 [facility] 9.1 fl (missing) MEAN CORPUSCULAR VOLUME 2025-07-31 15:18 [facility] 93.6 fl (missing) DIFFERENTIAL COMMENT 2025-07-31 15:18 [facility] MANUAL DIFFERENTIAL (missing ) (missing) PLATELET ESTIMATE, MANUAL 2025-07-31 15:18 [facility] NORMAL (130-450,000) (missing ) (missing) PLATELET MORPHOLOGY 2025-07-31 15:18 [facility] NORMAL APPEARANCE (missing ) (missing) RBC MORPHOLOGY (MULTIPLE) 2025-07-31 15:18 [facility] NORMAL APPEARANCE (missing ) (missing) Result panel 2 LIPASE 2025-07-31 15:48 [facility] < 10 u/l As of April 2023 testing method has changed, this may include reference ranges. CREATININE 2025-07-31 15:48 [facility] 0.6 mg/dl As of April 2023 testing method has changed, this may include reference ranges. ALBUMIN/GLOBULIN RATIO 2025-07-31 15:48 [facility] 1.0 (missing) (missing) BILIRUBIN,TOTAL 2025-07-31 15:48 [facility] 1.1 mg /dl As of April 2023 testing method has changed, this may include reference ranges. SODIUM 2025-07-31 15:48 [facility] 126 mmol/l REDRAW ANION GAP 2025-07-31 15:48 [facility] 13.0 (missing ) (missing) AST ASPARTATE AMINOTRANSFERASE 2025-07-31 15:48 [facility] 156 iu/l As of April 2023 testing method has changed, this may include reference ranges. ALKALINE PHOSPHATASE 2025-07-31 15:48 [facility] 183 iu/l As of April 2023 testing method has changed, this may include reference ranges. ALBUMIN 2025-07-31 15:48 [facility] 2.7 g/dl As of April 2023 testing method has changed, this may include reference ranges. GLOBULIN 2025-07-31 15:48 [facility] 2.8 g/dl (missing) CARBON DIOXIDE - CO2 2025-07-31 15:48 [facility] 24 mmol/l As of April 2023 testing method has changed, this may include reference ranges. POTASSIUM 2025-07-31 15:48 [facility] 3.6 mmol/l As of April 2023 testing method has changed, this may include reference ranges. TOTAL PROTEIN 2025-07-31 15:48 [facility] 5.5 g/dl As of April 2023 testing method has changed, this may include reference ranges. BUN - BLOOD UREA NITROGEN 2025-07-31 15:48 [facility] 7 mg/dl As of Apr testing method has changed, this may include reference ranges. ALT ALANINE AMINOTRANSFERASE 2025-07-31 15:48 [facility] 76 iu/l As of April 2023 testing method has changed, this may include reference ranges. CALCIUM 2025-07-31 15:48 [facility] 8.2 mg/dl As of April 2023 testing method has changed, this may include reference ranges. GLUCOSE 2025-07-31 15:48 [facility] 88 mg/dl As of April 2023 testing method has changed, this may include reference ranges. CHLORIDE 2025-07-31 15:48 [facility] 89 mmol/l As of April 2023 testing method has changed, this may include reference ranges. GFR - MDRD 2025-07-31 15:48 [facility] 97 (missin g) The IDMS-traceable MDRD Study Equation has been validated extensively in and populations between the ages of 18 and 70 with impaired kidney function (eGFR < 60 mL/min/1.73m2) and has shown good performance for patients with all common causes of kidney disease. Although this equation has not been validated for patients older than 70, an MDRD-derived eGFR may still be a useful tool for providers caring for patients older than 70. References: http://www.nkdep. nih.gov/lab-evalu ation/gfr/creatin ine-stand ardization, last updated December 2011. Social History date description facility
[2025-08-03] MEDS: SODIUM CHLORIDE 0.9% 1,000 ML IV STA (20:48)
[2025-08-03] MEDS: ONDANSETRON ODT 4 MG TABLET TL STA (20:53)
[2025-08-03 21:16] LABS: ALT ALANINE AMINOTRANSFERASE 62 IU/L (10-60); AST ASPARTATE AMINOTRANSFERASE 135 IU/L (10-42); BUN - BLOOD UREA NITROGEN 4 mg/dL (6-20); CARBON DIOXIDE - CO2 24 mmol/L (21-32); CREATININE 0.4 mg/dL (0.6-1.3); GFR - MDRD 155 (>89)
[2025-08-03 21:18] LABS: HCT - HEMATOCRIT 34.4 % (37.0-47.0); HGB - HEMOGLOBIN 11.2 g/dL (12.0-16.0); MEAN PLATELET VOLUME 8.4 fL (7.9-10.8); PLT - PLATELET COUNT 251 10^3/uL (130-450); RED CELL DISTRIBUTION WIDTH 15.0 % (12.0-15.0)
[2025-08-03 21:24] LABS: ABNORMAL LYMPHS % (MANUAL) 0 %; BASOPHILS # (MANUAL) 0.0 10^3/uL (0-0.1); EOSINOPHILS # (MANUAL) 0.0 10^3/uL (0-0.7)
[2025-08-03 21:45] LABS: BAND NEUTROPHILS % (MANUAL) 6 %; LYMPHOCYTES # (MANUAL) 1.9 10^3/uL (1.5-3.5); LYMPHOCYTES % (MANUAL) 17 %; METAMYELOCYTES % (MANUAL) 1 %; MONOCYTES # (MANUAL) 0.2 10^3/uL (0.0-1.0); MYELOCYTES % (MANUAL) 1 %; NEUTROPHILS # (MANUAL) 9.0 10^3/uL (1.5-6.6)
[2025-08-03 21:47] LABS: PLATELET ESTIMATE, MANUAL NORMAL (130-450,000) (NORMAL); PLATELET MORPHOLOGY NORMAL APPEARANCE (NORMAL); RBC MORPHOLOGY (MULTIPLE) NORMAL APPEARANCE (NORMAL); WBC MORPHOLOGY (MULTIPLE) 2+ TOXIC GRANULATION (NORMAL)
--- NOTE | 2025-08-03 22:48 | ED Physician Documentation ---
History of Present Illness Stated complaint Stated Complaint: DEHYDRATED Chief complaint Chief Complaint: Abd Pain History obtained from History obtained from: Patient History of Present Illness Timing: Prior to arrival Additonal information Additional information: Patient is a 79-year-old female continued to the worsening ulcerative colitis symptoms going on for the past 10 days she has history remarkable for Alzheimer's history of arthritis, history of breast cancer presents to the ED with generalized malaise decreased eating and drinking for the past 10 days recurrent nausea and vomiting for the last 4 days and persistent diarrhea with blood in her stool. She was seen here 4 days ago with evaluation with CT scan and right upper quadrant ultrasound given enlarged gallbladder but had reassuring workup otherwise. She has follow-up with GI at [facility] tomorrow but feels she is too weak to even to make it to the appointment. She on previous exam had elevated liver enzymes but cultures found despite enlarged gallbladder. She Meds/Allgy Home Medications Ambulatory Orders Medication Instructions Recorded Confirmed calcium carb 600 mg(1,500 mg)-vit 2 ea PO DAILY 04/21/25 D3 400 unit-minerals chewable tablet mesalamine 1.2 gram tablet,delayed 2 tab PO BID 04/21/25 release (Lialda) Meclizine Hcl 25 mg PO PRN PRN As Needed P er 02/02/24 04/21/25 Provider Orders cetirizine 10 mg tablet 40 mg PO DAILY 02/02/2404/11 fluticasone 250 mcg-salmeterol 50 1 ea IH BID 02/02/24 04/21/25 mcg/dose blistr powdr for inhalation (Wixela Inhub) peg 400-propylene glycol (PF) 0.4 1 ea ophthalmic (eye ) PRN PRN As 02/02/24 04/21/25 %-0.3 % eye drops in a dropperette Needed Per Provider Orders (Systane Ultra (PF)) potassium citrate 99 mg capsule 1 - 2 tab PO DAILY 04/21/25 aspirin 325 mg tablet,delayed 1 - 2 tab PO DAILY 03/1104/21/25 release exemestane 25 mg tablet 25 mg PO QDAY 08/26/2404/21 omeprazole 20 mg tablet,delayed 20 mg PO QDAY 08/26/24 04/21/25 release fluticasone propionate 50 2 spray intranasal QDAY 0205/0504/21/25 mcg/actuation nasal spray,suspension azelastine 0.05 % eye drops 1 drp ophthalmic (eye) BID #6 mL 12/12/24 04/21/25 ciprofloxacin HCl 500 mg tablet 500 mg PO BID #20 tabs 07/31/25 diphenoxylate-atropine 2.5 1 tab PO QID PRN diarrhea # 20 tabs 07/31/25 mg-0.025 mg tablet (Lomotil) metronidazole 500 mg tablet 500 mg PO Q8H #30 tabs Allergies Allergies Allergy/AdvReac Type Severity Reaction Status Date / Time Penicillins Allergy Respiratory Verified 07/31/25 15:21 PFSH Active Problems All Active Problems (Updated 07/31/25 @ 19:45 by Domingo Clark MD) Colitis (Acute) Health education/counseling (Acute) Chronic kidney disease (CKD) (Acute) Chronic dryness of both eyes (Acute) Hypercholesteremia (Acute) Arrhythmia (Acute) Tachycardia (Acute) Atrial premature depolarization with aberrant ventricular conduction (Acute) PAC (premature atrial contraction) (Acute) Rheumatoid arthritis (Acute) Ulcerative colitis (Acute) Dry eyes (Acute) GERD (gastroesophageal reflux disease) (Acute) Vertigo (Acute) Vitamin D deficiency (Acute) Asthma (Acute) History of bone density study (Acute) Rheumatoid arthritis (Acute) Bilateral hand pain (Acute) Subcutaneous nodule of left thumb (Acute) Screening for skin cancer (Acute) Medical History Medical History (Updated 07/31/25 @ 19:45 by Domingo Clark MD) History of breast cancer Family History Family History Other Alzheimers disease Arthritis Asthma Bowel disease Breast cancer High blood pressure Mental disorder Polio Skin cancer Social History Social History If you are a former smoker, when did you quit? (Date/Year): 1982 How many cigarettes a day do you smoke? (20 cigarettes=1 Pk): 40 Second hand tobacco smoke exposure: No Do you dip or chew tobacco?: No Do you vape?: No Patient requests smoking cessation consult: No Initiate information on smoking cessation: No Living arrangement: At home Marital Status: Living Condition: With spouse/s.o. Support Person: Yes Level: Independent Do you feel safe in your home environment?: Yes History of physical, verbal, emotional, or financial abuse?: No ETOH Use: None Substance Use: cannabis (any form) Substance Use Details: CBD oil Are you sexually active?: No Retired: Yes Service: No Are you following a diet prescribed by a doctor: No Are you following a special diet: No POLST Patient has POLST: No Exam Exam Vital Signs: Vital Signs x48h Temp Pulse Resp BP Pulse Ox 08/03/25 22:37 104 H 16 101/82 95 08/03/25 19:48 36.3 C L 97 20 124/89 98 Constitutional Patient appears pale but awake and alert HENMT normocephalic and head/scalp atraumatic Eyes PERRL, EOMs intact bilaterally and conjunctivae normal Neck/C-Spine visual inspection normal Lymph no lymphadenopathy noted Respiratory breath sounds equal bilaterally, normal respiratory effort and clear to auscultation bilaterally Cardiovascular normal heart rate noted and regular rhythm noted Gastrointestinal Diffuse abdominal tenderness, non specific quadrant rebound or guarding Genitourinary no CVA tenderness Results Vitals Vitals: Vital Signs - 24 hr 08/03/25 19:48 08/03/25 22:37 Temperature 36.3 C L Temperature Source Temporal Artery Scan Pulse Rate 97 104 H Respiratory Rate 20 16 Blood Pressure 124/89 101/82 O2 Saturation 98 95 O2 Source Room air Room air Pain Intensity 4 4 Oxygen O2 Source Room air Labs Labs: Laboratory Tests 08/03/25 08/03/25 20:50 21:10 WBC 11.4 H RBC 3.61 L Hgb 11.2 L Hct 34.4 L MCV 95.3 MCH 31.0 MCHC 32.6 RDW 15.0 Plt Count 251 MPV 8.4 Neut # (Auto) Not Reportable Lymph # (Auto) Not Reportable [place] # (Auto) Not Reportable Eos # (Auto) Not Reportable Baso # (Auto) Not Reportable Absolute Nucleated RBC Not Reportable Total Counted 100 Band Neuts % (Manual) 6 Abnorm Lymph % (Manual) 0 Metamyelocytes % 1 H Myelocytes % 1 H Nucleated RBC % Not Reportable Neutrophils # (Manual) 9.0 H Lymphocytes # (Manual) 1.9 Monocytes # (Manual) 0.2 Eosinophils # (Manual) 0.0 Basophils # (Manual) 0.0 Differential Comment MANUAL DIFFERENTIAL WBC Morphology 2+ TOXIC GRANULATION Platelet Estimate NORMAL (130-450,000) Platelet Morphology NORMAL APPEARANCE RBC Morph Micro Appear NORMAL APPEARANCE Sodium 129 L Potassium 3.4 L Chloride 94 L Carbon Dioxide 24 Anion Gap 11.0 BUN 4 L Creatinine 0.4 L Estimated GFR (MDRD) 155 Glucose 68 L Calcium 7.5 L Total Bilirubin 0.8 AST 135 H ALT 62 H Alkaline Phosphatase 154 H Total Protein 4.4 L Albumin 2.2 L Globulin 2.2 Albumin/Globulin Ratio 1.0 Lipase < 10 L PD Medical Decision Making ED course Complexity details: reviewed old records and reviewed results ED course: Patient is a 79-year-old female presenting to the emergency department with dif fuse abdominal pain symptoms been going on for approximately 15 February. She has been following up with GI at [facility] as she has history of ulcerative colitis. She notes her flareup has never been this severe she has had endoscopies and colonoscopies that have been normal but no significant improvement. She recently finished a taper of prednisone a few days ago but had no significant improvement she was seen here in the emergency department on Thursday had a CT scan showing colitis and was started on ciprofloxacin and Flagyl. She notes she has been unable to keep the medications down and continues to have symptoms that she has been unable to eat or drink secondary to nausea and vomiting blood pressure soft on arrival at 101/82 mildly tachycardic at 104 saturating well on room air. Her CBC is remarkable for some leukocytosis her hemoglobin did drop from 12.9-11.2.CMP shows mild hyponatremia but this is improved from 126 a few weeks ago glucose is 68 on arrival and LFTs still slightly elevated at 135 and 62 but improvement from last week. Lipase well within normal limits pending urine analysis here in the ED patient was given a dose of Zofran and a liter of fluids on arrival I reached out to GI on-call at [facility] Dr. Quinones asked for possible transfer given she we have no GI facility ability available here at [facility] but although Dr. Green excepted patient they do not have beds. I reached out to our hospitalist for possible admission here at [facility] as Dr. Garnett did state it would be mainly IV steroids for her treatment. Discussed case with Dr. Qureshi, who did not feel patient was appropriate for our medical facility as she Would most likely benefit from GI evaluation for IV steroids and further evaluation as she most likely would require immunotherapy and further evaluation as she is not able to receive that here. Patient signed out to Dr. Mcdowell here in the ED epnding transfer Discharge Plan Discharge Prescriptions: No Action azelastine 0.05 % drops 1 drp ophthalmic (eye) BID Qty: 6 3RF Rx Instructions: Apply in the AM and PM mesalamine [Lialda] 1.2 GM tablet,delayed release (DR/EC) 2 tab PO BID calcium carbonate-vit D3-min 1 EACH tablet,chewable 2 ea PO DAILY fluticasone propion-salmeterol [Wixela Inhub] 1 EACH blister with device 1 ea IH BID cetirizine 10 MG tablet 40 mg PO DAILY peg 400-propylene glycol (PF) [Systane Ultra (PF)] 1 EACH dropperette 1 ea ophthalmic (eye) PRN PRN (Reason: As Needed Per Provider Orders) potassium citrate 99 MG capsule 1 - 2 tab PO DAILY Meclizine Hcl 25 MG tablet 25 mg PO PRN PRN (Reason: As Needed Per Provider Orders) aspirin 325 MG tablet,delayed release (DR/EC) 1 - 2 tab PO DAILY ciprofloxacin HCl 500 mg tablet 500 mg PO BID Qty: 20 0RF metronidazole 500 mg tablet 500 mg PO Q8H Qty: 30 0RF diphenoxylate-atropine [Lomotil] 2.5-0.025 mg tablet 1 tab PO QID PRN (Reason: diarrhea) Qty: 20 0RF exemestane 25 mg tablet 25 mg PO QDAY omeprazole 20 mg tablet,delayed release (DR/EC) 20 mg PO QDAY fluticasone propionate 50 mcg/actuation spray,suspension 2 spray intranasal QDAY Rx Instructions: administer into each nostril Print Language: Ukrainian Stand Alone Forms: PCP List
[2025-08-03] MEDS: DEXTROSE 5%-0.9% NACL 1,000 ML IV STA (23:53)
--- NOTE | 2025-08-04 02:05 | ED Physician Documentation ---
ED Addendum Addendum Addendum: I received signout/turnover of this patient from PENELOPE Wolfe; please see her note for complete H&P. In brief, patient's HPI/ROS and test results are c/w flare of her ulcerative colitis. 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 who advised that patient could be considered for admission to [facility], but PENELOPE Wolfe then contacted [facility] hospitalist who did not feel comfortable admitting to [facility]. Thus, at time of turnover of care to me, patient is wait-listed for [facility]. On my overnight shift she continues to hold in [facility] ED awaiting bed availability at [facility]; care of patient turned over to oncoming ED physician (Dr. Murray) at end of my shift Discharge Plan Discharge Prescriptions: No Action azelastine 0.05 % drops 1 drp ophthalmic (eye) BID Qty: 6 3RF Rx Instructions: Apply in the AM and PM mesalamine [Lialda] 1.2 GM tablet,delayed release (DR/EC) 2 tab PO BID calcium carbonate-vit D3-min 1 EACH tablet,chewable 2 ea PO DAILY fluticasone propion-salmeterol [Wixela Inhub] 1 EACH blister with device 1 ea IH BID cetirizine 10 MG tablet 40 mg PO DAILY peg 400-propylene glycol (PF) [Systane Ultra (PF)] 1 EACH dropperette 1 ea ophthalmic (eye) PRN PRN (Reason: As Needed Per Provider Orders) potassium citrate 99 MG capsule 1 - 2 tab PO DAILY Meclizine Hcl 25 MG tablet 25 mg PO PRN PRN (Reason: As Needed Per Provider Orders) aspirin 325 MG tablet,delayed release (DR/EC) 1 - 2 tab PO DAILY ciprofloxacin HCl 500 mg tablet 500 mg PO BID Qty: 20 0RF metronidazole 500 mg tablet 500 mg PO Q8H Qty: 30 0RF diphenoxylate-atropine [Lomotil] 2.5-0.025 mg tablet 1 tab PO QID PRN (Reason: diarrhea) Qty: 20 0RF exemestane 25 mg tablet 25 mg PO QDAY omeprazole 20 mg tablet,delayed release (DR/EC) 20 mg PO QDAY fluticasone propionate 50 mcg/actuation spray,suspension 2 spray intranasal QDAY Rx Instructions: administer into each nostril Print Language: Salvadorean Stand Alone Forms: PCP List
[2025-08-04] MEDS ORDERED: ACETAMINOPHEN 325 MG TABLET PO PRN (08:44)
[2025-08-04] MEDS ORDERED: IBUPROFEN 600 MG TABLET PO PRN (08:44)
--- NOTE | 2025-08-04 14:21 | PHARMACY PROGRESS NOTE ---
Best Possible Medication History Admit Date and Time: Home Medications Medication Instructions Recorded Confirmed Type fluticasone 250 mcg-salmeterol 50 1 ea inhalation ANISH Y 02/02/24 08/04/25 History mcg/dose blistr powdr for inhalation (Wixela Inhub) peg 400-propylene glycol (PF) 0.4 1 ea ophthalmic (eye ) PRN PRN As 02/02/24 08/04/25 History %-0.3 % eye drops in a dropperette Needed Per Provider Orders (Systane Ultra (PF)) azelastine 0.05 % eye drops 1 drp ophthalmic (eye) BID #6 mL 12/12/24 08/04/25 Rx ciprofloxacin HCl 500 mg tablet 500 mg PO BID #20 tabs 07/31/25 08/04/25 Rx fluoxetine 20 mg tablet 20 mg PO DAILY 08/04/2507/13 History Processed by: Pharmacy Medications reviewed in ED?: Yes Medication History completed: Yes Patient Interview: Completed Secondary Source(s): Pharmacy records and Insurance records [facility] Statement: As the person ultimately responsible for medication therapy, providers are able to order a medication from an existing home medication list in [facility] via the "Reconcile Routine" prior to Confirmation of that medication by lab support tech. Such practice is discouraged except when the physician, in their clinical judgment, deems that a medical need exists for a medication without regard to previous use.
--- NOTE | 2025-08-04 16:20 | ED Physician Documentation ---
History of Present Illness Stated complaint Stated Complaint: DEHYDRATED Chief complaint Chief Complaint: Abd Pain History obtained from History obtained from: Patient History of Present Illness Timing: Prior to arrival Additonal information Additional information: Patient 79-year-old female presenting to the emergency department generalized abdominal cramping diarrhea nausea vomiting seen here yesterday aStayed overnight for history of ulcerative colitis plan to transfer over to [facility] awaiting bed here in the ED. Meds/Allgy Home Medications Ambulatory Orders Medication Instructions Recorded Confirmed fluticasone 250 mcg-salmeterol 50 1 ea inhalation ANISH Y 02/02/24 08/04/25 mcg/dose blistr powdr for inhalation (Wixela Inhub) peg 400-propylene glycol (PF) 0.4 1 ea ophthalmic (eye ) PRN PRN As 02/02/24 08/04/25 %-0.3 % eye drops in a dropperette Needed Per Provider Orders (Systane Ultra (PF)) azelastine 0.05 % eye drops 1 drp ophthalmic (eye) BID #6 mL 12/12/24 08/04/25 ciprofloxacin HCl 500 mg tablet 500 mg PO BID #20 tabs 07/31/25 08/04/25 fluoxetine 20 mg tablet 20 mg PO DAILY 08/04/2507/13 Allergies Allergies Allergy/AdvReac Type Severity Reaction Status Date / Time Penicillins Allergy Respiratory Verified 07/31/25 15:21 PFSH Active Problems All Active Problems (Updated 08/04/25 @ 17:03 by ) Hypoglycemia (Acute) Diarrhea (Acute) Ulcerative colitis (Acute) Colitis (Acute) Health education/counseling (Acute) Chronic kidney disease (CKD) (Acute) Chronic dryness of both eyes (Acute) Hypercholesteremia (Acute) Arrhythmia (Acute) Tachycardia (Acute) Atrial premature depolarization with aberrant ventricular conduction (Acute) PAC (premature atrial contraction) (Acute) Rheumatoid arthritis (Acute) Ulcerative colitis (Acute) Dry eyes (Acute) GERD (gastroesophageal reflux disease) (Acute) Vertigo (Acute) Vitamin D deficiency (Acute) Asthma (Acute) History of bone density study (Acute) Rheumatoid arthritis (Acute) Bilateral hand pain (Acute) Subcutaneous nodule of left thumb (Acute) Screening for skin cancer (Acute) Medical History Medical History (Updated 08/04/25 @ 17:03 by ) Alzheimer's dementia History of breast cancer Family History Family History Other Alzheimers disease Arthritis Asthma Bowel disease Breast cancer High blood pressure Mental disorder Polio Skin cancer Social History Social History Smoking Status: Unknown if ever smoked If you are a former smoker, when did you quit? (Date/Year): 1982 How many cigarettes a day do you smoke? (20 cigarettes=1 Pk): 40 Second hand tobacco smoke exposure: No Do you dip or chew tobacco?: No Do you vape?: No Patient requests smoking cessation consult: No Initiate information on smoking cessation: No Living arrangement: At home Marital Status: Living Condition: With spouse/s.o. Support Person: Yes Level: Independent Do you feel safe in your home environment?: Yes History of physical, verbal, emotional, or financial abuse?: No ETOH Use: None Substance Use: cannabis (any form) Substance Use Details: CBD oil Are you sexually active?: No Retired: Yes Service: No Are you following a diet prescribed by a doctor: No Are you following a special diet: No POLST Patient has POLST: No Exam Exam Vital Signs: Vital Signs x48h Pulse BP Pulse Ox 08/04/25 14:00 80 114/67 94 08/04/25 12:06 68 116/76 97 08/04/25 10:14 73 108/70 97 Constitutional normal general appearance HENMT normocephalic Eyes PERRL and EOMs intact bilaterally Neck/C-Spine visual inspection normal Lymph no lymphadenopathy noted Chest inspection of chest normal Respiratory breath sounds equal bilaterally, normal respiratory effort and clear to auscultation bilaterally Cardiovascular normal heart rate noted, regular rhythm noted, no gallop and no rub Gastrointestinal Generalized abdominal tenderness Results Vitals Vitals: Vital Signs - 24 hr 08/03/25 19:48 08/03/25 22:37 08/03/25 23:55 Temperature 36.3 C L Temperature Source Temporal Artery Scan Pulse Rate 97 104 H 95 Respiratory Rate 20 16 16 Blood Pressure 124/89 101/82 122/82 O2 Saturation 98 95 96 O2 Source Room air Room air Room air Pain Intensity 4 4 08/04/25 01:38 08/04/25 03:00 08/04/25 05:00 Temperature Temperature Source Pulse Rate 88 80 84 Respiratory Rate 16 16 16 Blood Pressure 111/78 105/75 O2 Saturation 97 98 98 O2 Source Room air Room air Room air Pain Intensity 08/04/25 06:48 08/04/25 08:00 08/04/25 10:14 Temperature 36.5 C Temperature Source Temporal Artery Scan Pulse Rate 81 82 73 Respiratory Rate 20 Blood Pressure 118/81 118/81 108/70 O2 Saturation 98 96 97 O2 Source Room air Room air Room air Pain Intensity 08/04/25 12:06 08/04/25 14:00 Temperature Temperature Source Pulse Rate 68 80 Respiratory Rate Blood Pressure 116/76 114/67 O2 Saturation 97 94 O2 Source Room air Room air Pain Intensity Oxygen O2 Source Room air Labs Labs: Laboratory Tests 08/03/25 08/03/25 08/03/25 20:50 21:10 23:41 WBC 11.4 H RBC 3.61 L Hgb 11.2 L Hct 34.4 L MCV 95.3 MCH 31.0 MCHC 32.6 RDW 15.0 Plt Count 251 MPV 8.4 Neut # (Auto) Not Reportable Lymph # (Auto) Not Reportable [place] # (Auto) Not Reportable Eos # (Auto) Not Reportable Baso # (Auto) Not Reportable Absolute Nucleated RBC Not Reportable Total Counted 100 Band Neuts % (Manual) 6 Abnorm Lymph % (Manual) 0 Metamyelocytes % 1 H Myelocytes % 1 H Nucleated RBC % Not Reportable Neutrophils # (Manual) 9.0 H Lymphocytes # (Manual) 1.9 Monocytes # (Manual) 0.2 Eosinophils # (Manual) 0.0 Basophils # (Manual) 0.0 Differential Comment MANUAL DIFFERENTIAL WBC Morphology 2+ TOXIC GRANULATION Platelet Estimate NORMAL (130-450,000) Platelet Morphology NORMAL APPEARANCE RBC Morph Micro Appear NORMAL APPEARANCE Sodium 129 L Potassium 3.4 L Chloride 94 L Carbon Dioxide 24 Anion Gap 11.0 BUN 4 L Creatinine 0.4 L Estimated GFR (MDRD) 155 Glucose 68 L POC Whole Bld Glucose 72 Calcium 7.5 L Total Bilirubin 0.8 AST 135 H ALT 62 H Alkaline Phosphatase 154 H Total Protein 4.4 L Albumin 2.2 L Globulin 2.2 Albumin/Globulin Ratio 1.0 Lipase < 10 L 08/04/25 08/04/25 08/04/25 01:35 06:59 12:02 WBC RBC Hgb Hct MCV MCH MCHC RDW Plt Count MPV Neut # (Auto) Lymph # (Auto) [place] # (Auto) Eos # (Auto) Baso # (Auto) Absolute Nucleated RBC Total Counted Band Neuts % (Manual) Abnorm Lymph % (Manual) Metamyelocytes % Myelocytes % Nucleated RBC % Neutrophils # (Manual) Lymphocytes # (Manual) Monocytes # (Manual) Eosinophils # (Manual) Basophils # (Manual) Differential Comment WBC Morphology Platelet Estimate Platelet Morphology RBC Morph Micro Appear Sodium Potassium Chloride Carbon Dioxide Anion Gap BUN Creatinine Estimated GFR (MDRD) Glucose POC Whole Bld Glucose 117 152 97 Calcium Total Bilirubin AST ALT Alkaline Phosphatase Total Protein Albumin Globulin Albumin/Globulin Ratio Lipase PD Medical Decision Making ED course Complexity details: reviewed old records and reviewed results ED course: Patient 79-year-old female presenting to the emergency department with concerns for abdominal pain cramping nausea vomiting and diarrhea going on for multiple months but worsening within the last week for worsening symptoms. Patient denies any fevers or chills after being monitored overnight patient with denied from [facility] hospitalist after discussion with Dr. Green again by the hospitalist there patient does not meet admission criteria and recommend admission here I was able to discuss with Dr. Cisneros Again and had recommendations below Reached out to Thuan Garnett again and they have recommended patient Solu- Medrol 40 IV every 12 hours and switch to p.o. prednisone when feeling better and ready for discharge daily and follow-up outpatient urgently with Thuan BIRD Reached out to Dr. Cyr Who is agreeable with this plan. Discharge Plan Discharge Patient Disposition: [facility] DC/Xfer Condition: Stable Clinical Impression: Ulcerative colitis, Diarrhea, Hypoglycemia
--- NOTE | 2025-08-04 16:40 | HISTORY & PHYSICAL EXAMINATION ---
Chief Complaint Chief Complaint Chief Complaint: Abdominal pain, nausea, vomiting, diarrhea History of Present Illness Admitted From Admitted From:: Home History Obtained From Records Reviewed: EMR History obtained from: Patient Exam Limitations: None History of Present Illness HPI Comment/Other: Patient is a aureliano 79-year-old female with a history of ulcerative pancolitis who presents with worsening abdominal pain, nausea, vomiting, as well as frequent diarrhea with blood and mucus noted in it. Patient states that she has had worsening diarrhea for the last 2 to 3 weeks. She describes it as loose, with mucus and blood in it. She has up to 15 episodes a day. She states that this is very typical of her ulcerative colitis flares, although they are not very frequent. She presented to the ER on Thursday, she received some IV hydration and was sent home. However, at home, she continued to be weak, lightheaded, and dizzy. She almost fell, and so she decided to come in. She denies any fevers or chills. She describes her abdominal pain as severe, diffuse, and cramping, and severe. She has not had any nausea or vomiting in the last 12 hours. She has just had 2 episodes of loose stools in the last 12 hours. In the ER, she has been vitally stable, afebrile, normotensive, heart rate of 88-100, saturating 98% on room air with a normal respiratory rate. When she presented on 08/03, she had a leukocytosis of 11.4. Today, this is resolved to 8. Her hemoglobin has been stable around 10.5-11.2. Her sodium is low at 132, although it is improved from admission at 129. Her potassium is also low at 3.3. Her CRP is elevated at 6.2, and her calcium is low at 7.3. Her albumin is very low at 2.2. CT abdomen/pelvis shows colitis, as well as distended gallbladder. Abdominal ultrasound was also completed which shows sludge with no wall thickening. Initially, plan was to transfer patient to [facility] for evaluation by gastroenterology. Over, they have taken her off the transfer list, and as such, she was admitted here. ER provider did speak with hr manager, Dr. Green who recommended the followingSolu-Medrol 40 mg every 12 hours, followed by prednisone 40 mg daily afterwards once there is improvement. She will need urgent follow-up in the outpatient once she is discharged. Past medical history includes breast cancer in remission, rheumatoid arthritis, asthma not on home oxygen, chronic dry eyes, depression. Medications include fluoxetine, Wixela inhaler, eyedrops. Allergies include penicillins, with effects being anaphylaxis. Surgical history includes cataract surgery. She has never had any abdominal surgeries before. Denies any alcohol use. Former tobacco use, 15-year pack history, quit in 1984. Occasional marijuana use in the past. 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 Lives with . Ambulates with walker. Daughter and son-in-law are close by and provide support. Meds/Allgy Home Medications Ambulatory Orders Medication Instructions Recorded Confirmed fluticasone 250 mcg-salmeterol 50 1 ea inhalation ANISH Y 02/02/24 08/04/25 mcg/dose blistr powdr for inhalation (Wixela Inhub) peg 400-propylene glycol (PF) 0.4 1 ea ophthalmic (eye ) PRN PRN As 02/02/24 08/04/25 %-0.3 % eye drops in a dropperette Needed Per Provider Orders (Systane Ultra (PF)) azelastine 0.05 % eye drops 1 drp ophthalmic (eye) BID #6 mL 12/12/24 08/04/25 ciprofloxacin HCl 500 mg tablet 500 mg PO BID #20 tabs 07/31/25 08/04/25 fluoxetine 20 mg tablet 20 mg PO DAILY 08/04/2507/13 Allergies Allergies Allergy/AdvReac Type Severity Reaction Status Date / Time Penicillins Allergy Respiratory Verified 07/31/25 15:21 PFSH Active Problems All Active Problems (Updated 08/04/25 @ 18:11 by Enid Gutierrez MD) Acute dehydration (Acute) Acute abdominal pain (Acute) Swelling of lower extremity (Acute) Hypokalemia (Acute) Hyponatremia (Acute) Severe ulcerative colitis (Acute) Hypoglycemia (Acute) Diarrhea (Acute) Ulcerative colitis (Acute) Colitis (Acute) Health education/counseling (Acute) Chronic kidney disease (CKD) (Acute) Chronic dryness of both eyes (Acute) Hypercholesteremia (Acute) Arrhythmia (Acute) Tachycardia (Acute) Atrial premature depolarization with aberrant ventricular conduction (Acute) PAC (premature atrial contraction) (Acute) Rheumatoid arthritis (Acute) Ulcerative colitis (Acute) Dry eyes (Acute) GERD (gastroesophageal reflux disease) (Acute) Vertigo (Acute) Vitamin D deficiency (Acute) Asthma (Acute) History of bone density study (Acute) Rheumatoid arthritis (Acute) Bilateral hand pain (Acute) Subcutaneous nodule of left thumb (Acute) Screening for skin cancer (Acute) Medical History Medical History Alzheimer's dementia History of breast cancer Family History Family History Other Alzheimers disease Arthritis Asthma Bowel disease Breast cancer High blood pressure Mental disorder Polio Skin cancer Social History Social History Smoking Status: Unknown if ever smoked If you are a former smoker, when did you quit? (Date/Year): 1982 How many cigarettes a day do you smoke? (20 cigarettes=1 Pk): 40 Second hand tobacco smoke exposure: No Do you dip or chew tobacco?: No Do you vape?: No Patient requests smoking cessation consult: No Initiate information on smoking cessation: No Living arrangement: At home Marital Status: Living Condition: With spouse/s.o. Support Person: Yes Level: Independent Do you feel safe in your home environment?: Yes History of physical, verbal, emotional, or financial abuse?: No ETOH Use: None Substance Use: cannabis (any form) Substance Use Details: CBD oil Are you sexually active?: No Retired: Yes Service: No Are you following a diet prescribed by a doctor: No Are you following a special diet: No POLST Patient has POLST: No Review of Systems Constitutional Reports: Chills, Malaise, Weakness, Poor appetite and Weight loss; Denies: Fatigue or Fever Eyes Reports: Dry eyes; Denies: Pain, Irritation, Blurry vision, Vision loss, Diplopia or Eye discomfort Ears, nose, mouth, and throat Denies: Ear pain, Hearing loss, Tinnitus, Nose bleeds or Nasal discharge Cardiovascular Reports: palpitations, edema and lightheadedness; Denies: Irregular heart rate, chest pain, Syncope or shortness of breath with exertion Respiratory Denies: Shortness of breath, Cough or Sputum production Gastrointestinal Reports: Abdominal pain, Nausea, Vomiting, Diarrhea and Rectal bleeding; Denies: Abdominal distention, Heartburn or Constipation Genitourinary Denies: Painful urination, Urinary frequency or Urinary urgency Musculoskeletal Reports: Extremity swelling; Denies: Back pain, Extremity pain or Joint pain Integumentary/Breast Denies: Rash, Itching, Dryness, Redness or Skin pain Neurological Reports: General weakness and Dizziness; Denies: Headache, Weakness in extremities, Numbness in extremities or Abnormal gait Psychiatric Reports: Depression; Denies: Anxiety, Mood swings or Panic attacks Endocrine Denies: Excessive urination, Excessive thirst or Fatigue Hematologic/Lymphatic Denies: Anemia, Easy bruising or Easy bleeding Allergic/Immunologic Denies: Hives, Tongue swelling or Facial swelling Prior Level of Functionality: Lives with , who helps with ADLs. He does most of the cooking and cleaning. Exam Exam Vital Signs: Vital Signs x48h Temp Pulse Pulse Resp BP BP Pulse Ox 08/04/25 17:56 97.3 F L 83 20 118/77 99 08/04/25 14:00 80 114/67 94 08/04/25 12:06 68 116/76 97 08/04/25 10:14 73 108/70 97 Constitutional normal general appearance, no apparent distress, abnormal body habitus (thin) and (underweight), no limitations and alert HENMT normocephalic, head/scalp atraumatic and hearing grossly normal bilaterally Eyes PERRL, EOMs intact bilaterally and conjunctivae normal Neck/C-Spine visual inspection normal, trachea midline and cervical spine nontender Chest inspection of chest normal Respiratory breath sounds equal bilaterally, normal respiratory effort, clear to auscultation bilaterally, no wheezes, no rales and no retractions Cardiovascular normal heart rate noted, regular rhythm noted, no gallop, no rub and no murmur Gastrointestinal abdomen normal to inspection, abdomen soft to palpation, tender to palpation (mild), (epigastric), (LLQ), (RLQ), (LUQ) and (RUQ), normoactive bowel sounds, no hepatosplenomegaly and no ascites Genitourinary no CVA tenderness and bladder normal to palpation Extremities normal to inspection, normal to palpation, no tenderness and full ROM 2+ pitting edema bilaterally. Psychiatry mental status grossly normal, oriented x3, thought process normal, cooperative and affect normal Skin skin color normal, no rash, no lesions and no wounds Conclusion/Plan Problem List (1) Severe ulcerative colitis: (2) Acute abdominal pain: (3) Acute dehydration: (4) Diarrhea: Plan: Patient presented with worsening symptoms of ulcerative colitis for the past 2-3 weeks decreased appetite, recurrent nausea and vomiting, as well as persistent diarrhea with blood in stool. CT abdomen/pelvis shows diffuse large bowel thickening with small volume ascites, suggestive of colitis. Ultrasound of the abdomen shows that the gallbladder is distended, without stones. ER provider spoke with hr manager; recommends Solu-Medrol 40 mg every 12 hours, will transition to prednisone 40 mg when improved abdominal pain, diarrhea, improved appetite. Needs urgent follow-up in the outpatient setting with hr manager, Dr. Green. Gastroenterology office notes reviewed from Dr. Roche. Patient has ulcerative pancolitis. This was diagnosed in 2009. She had been doing relatively well with this until 2023. Her last colonoscopy was in 2024, in s showed severe sigmoid diverticulosis. She was taking mesalamine 4 tablets by mouth daily with food, exemestane 25 mg daily, as well as Prilosec 10 mg daily. Continue gentle IV fluid rehydration with D5, normal saline. Patient not tolerating P.O. intakeac well at this time. Will trial CLD. ESR, CRP ordered, pending. Qualifiers: Diarrhea type: unspecified type Qualified Code(s): R19.7 - Diarrhea, unspecified (5) Hyponatremia: Plan: Continue gentle IV fluid rehydration. Trend daily. Avoid overcorrection of 6-8 mill equivalents over 24 hours. (6) Hypokalemia: Plan: Due to decreased p.o. intake, continue repletion, continue to trend daily. (7) Swelling of lower extremity: Plan: Patient with hypoalbuminemia, due to her chronic malnutrition, which would be leading to third spacing of fluids with decreased oncotic pressure. Continue gentle IV fluid rehydration at this time. Elevate legs when able. Dietitian consulted for assistance with nutrition. Echo ordered to rule out any new onset heart failure. Creatinine within normal limits. Unlikely nephrotic syndrome. (8) Chronic kidney disease (CKD): Plan: Creatinine stable, and at baseline. Avoid nephrotoxins, continue gentle IV fluid rehydration. Qualifiers: Chronic kidney disease stage: stage 2 (GFR 60-89) Qualified Code(s): N 18.2 - Chronic kidney disease, stage 2 (mild) (9) Atrial premature depolarization with aberrant ventricular conduction: Plan: Continue to maintain magnesium greater than 2, potassium greater than 4. Patient asymptomatic, will monitor off telemetry. (10) Rheumatoid arthritis: Plan: Stable, chronic condition. Qualifiers: Rheumatoid arthritis location: other site Rheumatoid factor presence: u nspecified presence Qualified Code(s): M06.9 - Rheumatoid arthritis, unspecified (11) Asthma: Plan: Continue home inhalers, Wixela. Continue DuoNebs as needed for shortness of breath. Not in acute exacerbation. Qualifiers: Asthma complication type: uncomplicated Asthma persistence: unspecified Asthma severity: mild Qualified Code(s): J45.909 - Unspecified asthma, uncomplicated Lab Results Lab results reviewed: Yes 08/04/25 17:26 08/04/25 17:26 Diagnostic Imaging Results Diagnostic Imaging Results: positive Final report reviewed Core Measures Anticipated LOS I expect patient to be DC'd or transferred within 96 hours.: Yes DVT/VTE - Prophylaxis VTE/DVT Device ordered at admit?: Yes VTE/DVT Prophylaxis med ordered at admit?: No Not Ordered - Medical Reason: Contraindicated Stroke - Rehab Assessment Rehab services assessment to be ordered?: No AMI - Statin at Admit Aspirin Prescribed on Admit: No Not Ordered - Medical Reason: Not indicated
--- OUTSIDE RECORDS SUMMARY | 2025-08-04 17:06 | EXTERNAL MEDICAL SUMMARY RPT | Continuity of Care Document ---
Author Organization [place] Address [address] [id number] Phone Problems date description facility 2025-07-21 11:37 Unspecified abnormal finding in specimens from other organs, systems and tissues [facility] 2025-07-22 00:02 Unspecified abnormal finding in specimens from other organs, systems and tissues [facility] 2025-07-31 20:40 Noninfective gastroenteritis an d colitis, unspecified [facility] 2025-08-02 14:14 Noninfective gastroenteritis an d colitis, unspecified [facility] 2025-08-02 14:14 Weakness [facility] Results/Labs test date facility value unit notes Result panel 1 ABNORMAL LYMPHS % (MANUAL) 2025-07-31 15:18 [facility] 0 % (missing) BASOPHILS # (MANUAL) 2025-07-31 15:18 [facility] 0.0 10 3/ul (missing) EOSINOPHILS # (MANUAL) 2025-07-31 15:18 [facility] 0.4 10 3/ul (missing) REACTIVE LYMPHS % (MANUAL) 2025-07-31 15:18 [facility] 1 % (missing) MONOCYTES # (MANUAL) [...] (missing) BAND NEUTROPHILS % (MANUAL) 2025-07-31 15:18 [facility] 22 % (missing) MEAN CORPUSCULAR HEMOGLOBIN 2025-07-31 15:18 [facility] 31.9 pg (missing) MEAN CORPUSCULAR HGB CONC 2025-07-31 15:18 [facility] 34.0 g/dl (missing) HCT - HEMATOCRIT 2025-07-31 15:18 [facility] 37.9 % (missing) PLT - PLATELET COUNT 2025-07-31 15:18 [facility] 374 10 3/ul (missing) RED BLOOD COUNT 2025-07-31 15:18 [facility] 4.05 10 6/ul (missing) NEUTROPHILS # (MANUAL) 2025-07-31 15:18 [facility] 8.6 10 3/ul (missing) MEAN PLATELET VOLUME 2025-07-31 15:18 [facility] 9.1 fl (missing) MEAN CORPUSCULAR VOLUME 2025-07-31 15:18 [facility] 93.6 fl (missing) DIFFERENTIAL COMMENT 2025-07-31 15:18 [facility] MANUAL DIFFERENTIAL (missing ) (missing) PLATELET ESTIMATE, MANUAL 2025-07-31 15:18 [facility] NORMAL (130-450,000) (missing ) (missing) PLATELET MORPHOLOGY 2025-07-31 15:18 [facility] NORMAL APPEARANCE (missing ) (missing) RBC MORPHOLOGY (MULTIPLE) 2025-07-31 15:18 [facility] NORMAL APPEARANCE (missing ) (missing) Result panel 2 LIPASE 2025-07-31 15:48 [facility] < 10 u/l As of April 2023 testing method has changed, this may include reference ranges. CREATININE 2025-07-31 15:48 [facility] 0.6 mg/dl As of April 2023 testing method has changed, this may include reference ranges. ALBUMIN/GLOBULIN RATIO 2025-07-31 15:48 [facility] 1.0 (missing) (missing) BILIRUBIN,TOTAL 2025-07-31 15:48 [facility] 1.1 mg /dl As of April 2023 testing method has changed, this may include reference ranges. SODIUM 2025-07-31 15:48 [facility] 126 mmol/l REDRAW ANION GAP 2025-07-31 15:48 [facility] 13.0 (missing ) (missing) AST ASPARTATE AMINOTRANSFERASE 2025-07-31 15:48 [facility] 156 iu/l As of April 2023 testing method has changed, this may include reference ranges. ALKALINE PHOSPHATASE 2025-07-31 15:48 [facility] 183 iu/l As of April 2023 testing method has changed, this may include reference ranges. ALBUMIN 2025-07-31 15:48 [facility] 2.7 g/dl As of April 2023 testing method has changed, this may include reference ranges. GLOBULIN 2025-07-31 15:48 [facility] 2.8 g/dl (missing) CARBON DIOXIDE - CO2 2025-07-31 15:48 [facility] 24 mmol/l As of April 2023 testing method has changed, this may include reference ranges. POTASSIUM 2025-07-31 15:48 [facility] 3.6 mmol/l As of April 2023 testing method has changed, this may include reference ranges. TOTAL PROTEIN 2025-07-31 15:48 [facility] 5.5 g/dl As of April 2023 testing method has changed, this may include reference ranges. BUN - BLOOD UREA NITROGEN 2025-07-31 15:48 [facility] 7 mg/dl As of Apr testing method has changed, this may include reference ranges. ALT ALANINE AMINOTRANSFERASE 2025-07-31 15:48 [facility] 76 iu/l As of April 2023 testing method has changed, this may include reference ranges. CALCIUM 2025-07-31 15:48 [facility] 8.2 mg/dl As of April 2023 testing method has changed, this may include reference ranges. GLUCOSE 2025-07-31 15:48 [facility] 88 mg/dl As of April 2023 testing method has changed, this may include reference ranges. CHLORIDE 2025-07-31 15:48 [facility] 89 mmol/l As of April 2023 testing method has changed, this may include reference ranges. GFR - MDRD 2025-07-31 15:48 [facility] 97 (missin g) The IDMS-traceable MDRD Study [...] ation/gfr/creatin ine-stand ardization, last updated December 2011. Result panel 3 LIPASE 2025-08-03 20:50 [facility] < 10 u/l As of April 2023 testing method has changed, this may include reference ranges. CREATININE 2025-08-03 20:50 [facility] 0.4 mg/dl As of April 2023 testing method has changed, this may include reference ranges. BILIRUBIN,TOTAL 2025-08-03 20:50 [facility] 0.8 mg /dl As of April 2023 testing method has changed, this may include reference ranges. ALBUMIN/GLOBULIN RATIO 2025-08-03 20:50 [facility] 1.0 (missing) (missing) ANION GAP 2025-08-03 20:50 [facility] 11.0 (missing ) (missing) SODIUM 2025-08-03 20:50 [facility] 129 mmol/l REDRAW AST ASPARTATE AMINOTRANSFERASE 2025-08-03 20:50 [facility] 135 iu/l As of April 2023 testing method has changed, this may include reference ranges. ALKALINE PHOSPHATASE 2025-08-03 20:50 [facility] 154 iu/l As of April 2023 testing method has changed, this may include reference ranges. GFR - MDRD 2025-08-03 20:50 [facility] 155 (missin g) The IDMS-traceable MDRD Study Equation [...] ation/gfr/creatin ine-stand ardization, last updated December 2011. GLOBULIN 2025-08-03 20:50 [facility] 2.2 g/dl (missing) ALBUMIN 2025-08-03 20:50 [facility] 2.2 g/dl As of April 2023 testing method has changed, this may include reference ranges. CARBON DIOXIDE - CO2 2025-08-03 20:50 [facility] 24 mmol/l As of April 2023 testing method has changed, this may include reference ranges. POTASSIUM 2025-08-03 20:50 [facility] 3.4 mmol/l As of April 2023 testing method has changed, this may include reference ranges. BUN - BLOOD UREA NITROGEN 2025-08-03 20:50 [facility] 4 mg/dl As of Apr testing method has changed, this may include reference ranges. TOTAL PROTEIN 2025-08-03 20:50 [facility] 4.4 g/dl As of April 2023 testing method has changed, this may include reference ranges. ALT ALANINE AMINOTRANSFERASE 2025-08-03 20:50 [facility] 62 iu/l As of April 2023 testing method has changed, this may include reference ranges. GLUCOSE 2025-08-03 20:50 [facility] 68 mg/dl As of April 2023 testing method has changed, this may include reference ranges. CALCIUM 2025-08-03 20:50 [facility] 7.5 mg/dl As of April 2023 testing method has changed, this may include reference ranges. CHLORIDE 2025-08-03 20:50 [facility] 94 mmol/l As of April 2023 testing method has changed, this may include reference ranges. Result panel 4 ABNORMAL LYMPHS % (MANUAL) 2025-08-03 21:10 [facility] 0 % (missing) BASOPHILS # (MANUAL) 2025-08-03 21:10 [facility] 0.0 10 3/ul (missing) EOSINOPHILS # (MANUAL) 2025-08-03 21:10 [facility] 0.0 10 3/ul (missing) MONOCYTES # (MANUAL) 2025-08-03 21:10 [facility] 0.2 10 3/ul (missing) METAMYELOCYTES % (MANUAL) 2025-08-03 21:10 [facility] 1 % (missing) MYELOCYTES % (MANUAL) 2025-08-03 21:10 [facility] 1 % (missing) LYMPHOCYTES # (MANUAL) 2025-08-03 21:10 [facility] 1.9 10 3/ul (missing) TOTAL CELLS COUNTED 2025-08-03 21:10 [facility] 100 (missing ) (missing) HGB - HEMOGLOBIN 2025-08-03 21:10 [facility] 11.2 g/dl (missing) WHITE BLOOD COUNT 2025-08-03 21:10 [facility] 11.4 x10 3/ul (missing) RED CELL DISTRIBUTION WIDTH 2025-08-03 21:10 [facility] 15.0 % (missing) WBC MORPHOLOGY (MULTIPLE) 2025-08-03 21:10 [facility] 2+ TOXIC GRANULATION (missing ) (missing) PLT - PLATELET COUNT 2025-08-03 21:10 [facility] 251 10 3/ul (missing) RED BLOOD COUNT 2025-08-03 21:10 [facility] 3.61 10 6/ul (missing) MEAN CORPUSCULAR HEMOGLOBIN 2025-08-03 21:10 [facility] 31.0 pg (missing) MEAN CORPUSCULAR HGB CONC 2025-08-03 21:10 [facility] 32.6 g/dl (missing) HCT - HEMATOCRIT 2025-08-03 21:10 [facility] 34.4 % (missing) BAND NEUTROPHILS % (MANUAL) 2025-08-03 21:10 [facility] 6 % (missing) MEAN PLATELET VOLUME 2025-08-03 21:10 [facility] 8.4 fl (missing) NEUTROPHILS # (MANUAL) 2025-08-03 21:10 [facility] 9.0 10 3/ul (missing) MEAN CORPUSCULAR VOLUME 2025-08-03 21:10 [facility] 95.3 fl (missing) DIFFERENTIAL COMMENT 2025-08-03 21:10 [facility] MANUAL DIFFERENTIAL (missing ) (missing) PLATELET ESTIMATE, MANUAL 2025-08-03 21:10 [facility] NORMAL (130-450,000) (missing ) (missing) PLATELET MORPHOLOGY 2025-08-03 21:10 [facility] NORMAL APPEARANCE (missing ) (missing) RBC MORPHOLOGY (MULTIPLE) 2025-08-03 21:10 [facility] NORMAL APPEARANCE (missing ) (missing) Result panel 5 GLUCOSE, WHOLE BLOOD 2025-08-03 23:41 [facility] 72 (missing) (missing) Result panel 6 GLUCOSE, WHOLE BLOOD 2025-08-04 01:35 [facility] 117 (missing) (missing) Result panel 7 GLUCOSE, WHOLE BLOOD 2025-08-04 06:59 [facility] 152 (missing) (missing) Result panel 8 GLUCOSE, WHOLE BLOOD 2025-08-04 12:02 [facility] 97 (missing) (missing) Social History date description facility
[2025-08-04 17:34] LABS: HCT - HEMATOCRIT 32.6 % (37.0-47.0); HGB - HEMOGLOBIN 10.5 g/dL (12.0-16.0); MEAN PLATELET VOLUME 8.1 fL (7.9-10.8); PLT - PLATELET COUNT 188.0 10^3/uL (130-450); RED CELL DISTRIBUTION WIDTH 15.1 % (12.0-15.0)
[2025-08-04 17:44] LABS: BUN - BLOOD UREA NITROGEN 3.0 mg/dL (6-20); CARBON DIOXIDE - CO2 28.0 mmol/L (21-32); CREATININE 0.5 mg/dL (0.6-1.3); CRP - C-REACTIVE PROTEIN 6.2 mg/dL (<0.5); GFR - MDRD 120.0 (>89)
[2025-08-04] MEDS ORDERED: SODIUM CHLORIDE FLUSH 0.9% 10 ML SYRINGE IVP PRN (18:24)
[2025-08-04] MEDS: POTASSIUM CHLORIDE 20 MEQ/15 ML UDC PO SCH (19:32)
[2025-08-04] MEDS: SODIUM CHLORIDE FLUSH 0.9% 10 ML SYRINGE IVP SCH (19:33)
[2025-08-04] MEDS: DEXTROSE 5%-0.9% NACL 1,000 ML IV SCH (19:33)
[2025-08-04] MEDS: methylPREDNISolone SUCCINATE 40 MG/ML VIAL IVP SCH (20:37)
[2025-08-04] MEDS: IPRATROPIUM/ALBUTEROL 3 ML NEB INH PRN (20:56)
[2025-08-04] MEDS: FORMOTEROL FUMARATE NEB 20 MCG/2 ML INH SCH (20:56)
[2025-08-04] MEDS: BUDESONIDE 0.5 MG/2 ML NEB INH SCH (20:56)
[2025-08-05 06:17] LABS: HCT - HEMATOCRIT 32.8 % (37.0-47.0); HGB - HEMOGLOBIN 10.6 g/dL (12.0-16.0); MEAN PLATELET VOLUME 8.7 fL (7.9-10.8); PLT - PLATELET COUNT 178 10^3/uL (130-450); RED CELL DISTRIBUTION WIDTH 14.9 % (12.0-15.0)
[2025-08-05 06:22] LABS: ABNORMAL LYMPHS % (MANUAL) 0 %; EOSINOPHILS # (MANUAL) 0.0 10^3/uL (0-0.7); MONOCYTES # (MANUAL) 0.0 10^3/uL (0.0-1.0)
[2025-08-05 06:48] LABS: BAND NEUTROPHILS % (MANUAL) 8 %; BASOPHILS # (MANUAL) 0.1 10^3/uL (0-0.1); BASOPHILS % (MANUAL) 1 %; LYMPHOCYTES # (MANUAL) 0.4 10^3/uL (1.5-3.5); LYMPHOCYTES % (MANUAL) 6 %; NEUTROPHILS # (MANUAL) 6.0 10^3/uL (1.5-6.6); PLATELET ESTIMATE, MANUAL NORMAL (130-450,000) (NORMAL); PLATELET MORPHOLOGY NORMAL APPEARANCE (NORMAL); RBC MORPHOLOGY (MULTIPLE) NORMAL APPEARANCE (NORMAL)
[2025-08-05 06:49] LABS: WBC MORPHOLOGY (MULTIPLE) NORMAL APPEARANCE (NORMAL)
--- NOTE | 2025-08-05 07:48 | PROVIDER PROGRESS NOTE ---
Subjective Subjective Subjective: This morning, patient states her abdominal pain is about the same as yesterday. The diffuse cramping is slightly improved. She had about 4 bowel movements overnight, which were loose and filled with mucus. She also had some possible stool output out of her vagina. She denies any fevers or chills. She is tolerating clear liquids well, and we talked about advancing to full liquids later this afternoon. Current Medications Current Medications Current Medications: Current Medications Generic Name Dose Route Start Last Admin Trade Name Freq PRN Reason Stop Dose Admin Acetaminophen 650 mg 08/04/25 08:44 Acetaminophen 325 Mg Tablet PO 08/05/25 08:43 ONCE PRN PAIN 5-7 Acetaminophen 650 mg 08/04/25 18:24 Acetaminophen 325 Mg Tablet PO Q4HR PRN Pain 1 to 4, or Fever Albuterol/Ipratropium 3 ml 08/04/25 18:24 08/04/25 20:56 Ipratropium/Albuterol 3 Ml Neb INH 3 ml RTQID PRN Administration Shortness of Air/Wheezing Budesonide 0.5 mg 08/04/25 19:00 08/05/25 07:40 Budesonide 0.5 Mg/2 Ml Neb INH 0.5 mg RTBID ALONZO Administration Carboxymethylcellulose 1 drops 08/04/25 18:29 Carboxymethylcellulose Ophth Drops EACHEYE Q4HR PRN Dry Eye Fluoxetine HCl 20 mg 08/05/25 09:00 Fluoxetine 10 Mg Capsule PO DAILY ALONZO Formoterol Fumarate 20 mcg 08/04/25 19:00 08/05/25 07:40 Formoterol Fumarate Neb 20 Mcg/2 Ml INH 20 mcg RTBID ALONZO Administration Dextrose/Sodium Chloride 1,000 mls @ 100 mls/hr 08/04/25 18:24 08/05/25 05:35 D5ns IV 100 mls/hr .Q10H ALONZO Administration Ibuprofen 600 mg 08/04/25 08:44 Ibuprofen 600 Mg Tablet PO 08/05/25 08:43 ONCE PRN PAIN 5-7 Methylprednisolone 40 mg 08/04/25 21:00 08/04/25 20:37 Methylprednisolone Succinate 40 Mg/Ml Vial IVP 40 mg BID ALONZO Administration Ondansetron HCl 4 mg 08/04/25 18:24 Ondansetron Odt 4 Mg Tablet TL Q6HR PRN Nausea / Vomiting Ondansetron HCl 4 mg 08/04/25 18:24 Ondansetron 4 Mg/2 Ml Vial IVP Q6HR PRN Nausea / Vomiting Azelastine 0.05 % 1 each 08/04/25 21:00 08/04/25 20:38 Drops EACHEYE Not Given BID [facility] Potassium Chloride 20 meq 08/04/25 18:00 08/04/25 19:32 Potassium Chloride 20 Meq/15 Ml Udc PO 20 meq DAILYWM [facility] Administration Sodium Chloride 10 ml 08/04/25 18:24 Sodium Chloride Flush 0.9% 10 Ml Syringe IVP PRN PRN NEEDED PER PROVIDER ORDERS Sodium Chloride 10 ml 08/04/25 18:24 08/05/25 00:28 Sodium Chloride Flush 0.9% 10 Ml Syringe IVP Not Given 0100,0900,1700 [facility] Objective Vital Signs/Intake & Output Reviewed Vital Signs: Yes Vital Signs: Vital Signs x48h Temp Pulse Pulse Resp BP Pulse Ox 08/05/25 07:41 78 20 08/05/25 00:00 98.1 F 86 14 123/79 99 Intake & Output: Intake & Output 08/02/25 08/03/25 08/04/25 08/05/25 23:59 23:59 23:59 23:59 Intake Total 1000 / 1000 1000 / 1000 1000 / 1000 Output Total 0 / 0 0 / 0 Balance 1000 / 1000 1000 / 1000 1000 / 1000 Weight (kg) 58.967 kg 57.5 kg Objective General Appearance: positive No acute distress, Alert and Other (thin, frail woman, some temporal wasting noted); negative Anxious Eyes Bilateral: positive Normal inspection, PERRL and EOMI ENT: positive ENT inspection nml, Pharynx nml and Dry mucous membranes Neck: positive Nml inspection, Thyroid nml and No JVD Respiratory: positive Chest non-tender, No respiratory distress and Breath sounds nml; negative Wheezes, Rales or Rhonchi Cardiovascular: positive Regular rate & rhythm, No murmur and No gallop; negative Tachycardia or Systolic murmur Abdomen: positive No organomegaly, No distention and Tenderness (diffuse and mild); negative Guarding, Hepatomegaly or Splenomegaly Back: positive Nml inspection; negative CVA tenderness (R) or CVA tenderness (L) Skin: positive Color nml, No rash, Warm and Dry Extremities: positive Non-tender, Full ROM, Nml appearance and Pedal edema (2+ bilateral pitting edema ) Neurologic/Psychiatric: positive Oriented x3, Motor nml and Mood/affect nml Lab Results 08/05/25 05:20 08/05/25 05:20 Other Labs: Lab Results x24hrs 08/05/25 08/05/25 08/04/25 Range/Units 05:20 00:06 18:15 WBC 6.5 (4.8-10.8) x10^3/uL RBC 3.41 L (4.20-5.40) 10^6/uL Hgb 10.6 L (12.0-16.0) g/dL Hct 32.8 L (37.0-47.0) % MCV 96.2 (81.0-99.0) fL MCH 31.1 H (27.0-31.0) pg MCHC 32.3 (32.0-36.0) g/dL RDW 14.9 (12.0-15.0) % Plt Count 178 (130-450) 10^3/uL MPV 8.7 (7.9-10.8) fL Neut # (Auto) Not Reportable Lymph # (Auto) Not Reportable Addison # (Auto) Not Reportable Eos # (Auto) Not Reportable Baso # (Auto) Not Reportable Absolute Nucleated RBC Not Reportable Total Counted 100 Band Neuts % (Manual) 8 (0 - 10) % Abnorm Lymph % (Manual) 0 % Nucleated RBC % Not Reportable Neutrophils # (Manual) 6.0 (1.5-6.6) 10^3/uL Lymphocytes # (Manual) 0.4 L (1.5-3.5) 10^3/uL Monocytes # (Manual) 0.0 (0.0-1.0) 10^3/uL Eosinophils # (Manual) 0.0 (0-0.7) 10^3/uL Basophils # (Manual) 0.1 (0-0.1) 10^3/uL Differential Comment MANUAL DIFFERENTIAL WBC Morphology NORMAL APPEARANCE (NORMAL) Platelet Estimate NORMAL (130-450,000) (NORMAL) Platelet Morphology NORMAL APPEARANCE (NORMAL) RBC Morph Micro Appear NORMAL APPEARANCE (NORMAL) ESR (0-30) mm/Hr Sodium (135-145) mmol/L Potassium (3.5-4.5) mmol/L Chloride (101-111) mmol/L Carbon Dioxide (21-32) mmol/L Anion Gap (6-13) BUN (6-20) mg/dL Creatinine (0.6-1.3) mg/dL Estimated GFR (MDRD) (>89) Glucose (74-104) mg/dL POC Whole Bld Glucose 135 96 (70-100) mg/dL Calcium (8.5-10.3) mg/dL C-Reactive Protein (<0.5) mg/dL 08/04/25 08/04/25 Range/Units 17:26 12:02 WBC 8.0 (4.8-10.8) x10^3/uL RBC 3.43 L (4.20-5.40) 10^6/uL Hgb 10.5 L (12.0-16.0) g/dL Hct 32.6 L (37.0-47.0) % MCV 95.0 (81.0-99.0) fL MCH 30.6 (27.0-31.0) pg MCHC 32.2 (32.0-36.0) g/dL RDW 15.1 H (12.0-15.0) % Plt Count 188 (130-450) 10^3/uL MPV 8.1 (7.9-10.8) fL Neut # (Auto) Lymph # (Auto) Addison # (Auto) Eos # (Auto) Baso # (Auto) Absolute Nucleated RBC Total Counted Band Neuts % (Manual) (0 - 10) % Abnorm Lymph % (Manual) % Nucleated RBC % Neutrophils # (Manual) (1.5-6.6) 10^3/uL Lymphocytes # (Manual) (1.5-3.5) 10^3/uL Monocytes # (Manual) (0.0-1.0) 10^3/uL Eosinophils # (Manual) (0-0.7) 10^3/uL Basophils # (Manual) (0-0.1) 10^3/uL Differential Comment WBC Morphology (NORMAL) Platelet Estimate (NORMAL) Platelet Morphology (NORMAL) RBC Morph Micro Appear (NORMAL) ESR 33 H (0-30) mm/Hr Sodium 132 L (135-145) mmol/L Potassium 3.3 L (3.5-4.5) mmol/L Chloride 98 L (101-111) mmol/L Carbon Dioxide 28 (21-32) mmol/L Anion Gap 6.0 (6-13) BUN 3 L (6-20) mg/dL Creatinine 0.5 L (0.6-1.3) mg/dL Estimated GFR (MDRD) 120 (>89) Glucose 101 (74-104) mg/dL POC Whole Bld Glucose 97 (70-100) mg/dL Calcium 7.3 L (8.5-10.3) mg/dL C-Reactive Protein 6.2 H (<0.5) mg/dL Diagnostic Imaging Diagnostic Imaging Results: positive Final report reviewed Assessment/Plan Problem List (1) Severe ulcerative colitis: (2) Acute abdominal pain: (3) Acute dehydration: (4) Diarrhea: Impression: Patient presented with worsening symptoms of ulcerative colitis for the past 2-3 weeks decreased appetite, recurrent nausea and vomiting, as well as persistent diarrhea with blood in stool. CT abdomen/pelvis shows diffuse large bowel thickening with small volume ascites, suggestive of colitis. Ultrasound of the abdomen shows that the gallbladder is distended, without stones. ER provider spoke with abap developer; recommends Solu-Medrol 40 mg every 12 hours, will transition to prednisone 40 mg when improved abdominal pain, diarrhea, improved appetite. Needs urgent follow-up in the outpatient setting with abap developer, Dr. Green. Gastroenterology office notes reviewed from Dr. Roche. Patient has ulcerative pancolitis. This was diagnosed in 2009. She had been doing relatively well with this until 2023. Her last colonoscopy was in 2024, in s showed severe sigmoid diverticulosis. She was taking mesalamine 4 tablets by mouth daily with food, exemestane 25 mg daily, as well as Prilosec 10 mg daily. Continue gentle IV fluid rehydration with D5, normal saline. Minimal intake today. Will try full liquid diet. Continue IV solumedrol today. Qualifiers: Diarrhea type: unspecified type Qualified Code(s): R19.7 - Diarrhea, unspecified (5) Colovaginal fistula: Impression: CT abdomen/pelvis did show some fluid within the vagina. She is having some stool output from her vagina as well. Discussed with the patient that she may have a colovaginal fistula, and this will likely put her at increased risk for infections, worsened pain. Will likely need general surgery follow-up in the outpatient. She demonstrated understanding. (6) Hyponatremia: Impression: Continue gentle IV fluid rehydration. Trend daily. Avoid overcorrection of 6-8 mill equivalents over 24 hours. (7) Hypokalemia: Impression: Due to decreased p.o. intake, continue repletion, continue to trend daily. (8) Swelling of lower extremity: Impression: Likely due to hypoalbuminemia, due to her chronic malnutrition, which would be leading to third spacing of fluids with decreased oncotic pressure. Continue gentle IV fluid rehydration at this time. Elevate legs when able. Dietitian consulted for assistance with nutrition. Echo ordered to rule out any new onset heart failure. Creatinine within normal limits. Unlikely nephrotic syndrome. (9) Chronic kidney disease (CKD): Impression: Creatinine stable, and at baseline. Avoid nephrotoxins, continue gentle IV fluid rehydration. 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 Patient asymptomatic, will monitor off telemetry. (11) Rheumatoid arthritis: Impression: Stable, chronic condition. Qualifiers: Rheumatoid arthritis location: other site Rheumatoid factor presence: u nspecified presence Qualified Code(s): M06.9 - Rheumatoid arthritis, unspecified (12) Asthma: Impression: Continue home inhalers, [place]. Continue DuoNebs as needed for shortness of breath. Not in acute exacerbation. Qualifiers: Asthma complication type: uncomplicated Asthma persistence: unspecified Asthma severity: mild Qualified Code(s): J45.909 - Unspecified asthma, uncomplicated
[2025-08-05 08:10] LABS: BUN - BLOOD UREA NITROGEN 3.0 mg/dL (6-20); CARBON DIOXIDE - CO2 27.0 mmol/L (21-32); CREATININE 0.6 mg/dL (0.6-1.3); GFR - MDRD 97.0 (>89)
[2025-08-05] MEDS: FLUoxetine 10 MG CAPSULE PO SCH (09:00)
[2025-08-05] MEDS: CARBOXYMETHYLCELLULOSE OPHTH DROPS EACHEYE PRN (09:00)
[2025-08-05] MEDS: ONDANSETRON ODT 4 MG TABLET TL PRN (10:17)
[2025-08-06 04:50] LABS: HCT - HEMATOCRIT 33.2 % (37.0-47.0); HGB - HEMOGLOBIN 10.7 g/dL (12.0-16.0); MEAN PLATELET VOLUME 8.6 fL (7.9-10.8); PLT - PLATELET COUNT 189.0 10^3/uL (130-450); RED CELL DISTRIBUTION WIDTH 15.1 % (12.0-15.0)
[2025-08-06 05:05] LABS: ALT ALANINE AMINOTRANSFERASE 58.0 IU/L (10-60); AST ASPARTATE AMINOTRANSFERASE 120.0 IU/L (10-42); BUN - BLOOD UREA NITROGEN 4.0 mg/dL (6-20); CARBON DIOXIDE - CO2 27.0 mmol/L (21-32); CREATININE 0.7 mg/dL (0.6-1.3); GFR - MDRD 81.0 (>89)
[2025-08-06 05:08] LABS: ADENOVIRUS F 40/41 Not Detected (Not Detected); ASTROVIRUS Not Detected (Not Detected); C DIFFICILE TOXIN A/B Not Detected (Not Detected); CAMPYLOBACTER Not Detected (Not Detected); CRYPTOSPORIDIUM Not Detected (Not Detected); CYCLOSPORA CAYETANENSIS Not Detected (Not Detected); ENTAMOEBA HISTOLYTICA Not Detected (Not Detected); ENTEROAGGREGATIVE E COLI Not Detected (Not Detected); ENTEROPATHOGENIC E COLI Not Detected (Not Detected); ENTEROTOXIGENIC E COLI Not Detected (Not Detected); GIARDIA LAMBLIA Not Detected (Not Detected); NOROVIRUS GI/GII Not Detected (Not Detected); PLESIOMONAS SHIGELLOIDES Not Detected (Not Detected); ROTAVIRUS A Not Detected (Not Detected); SALMONELLA Not Detected (Not Detected); SAPOVIRUS Not Detected (Not Detected); SHIGA-TOXIN-PRODUCING E COLI Not Detected (Not Detected); SHIGELLA/ENTEROINVASIVE E COLI Not Detected (Not Detected); VIBRIO Not Detected (Not Detected); VIBRIO CHOLERAE Not Detected (Not Detected); YERSINIA ENTEROCOLITICA Not Detected (Not Detected)
--- NOTE | 2025-08-06 07:40 | PROVIDER PROGRESS NOTE ---
Subjective Subjective Subjective: This morning, patient states her abdominal pain is slightly improved. She did complain of some chest pressure and discomfort this morning. No chest pain. EKG and troponin were negative. Improved with breathing treatment. She denies any fevers or chills. She is tolerating full liquids well; will advance to soft diet for dinner. Current Medications Current Medications Current Medications: Current Medications Generic Name Dose Route Start Last Admin Trade Name Freq PRN Reason Stop Dose Admin Acetaminophen 650 mg 08/04/25 18:24 Acetaminophen 325 Mg Tablet PO Q4HR PRN Pain 1 to 4, or Fever Albuterol/Ipratropium 3 ml 08/04/25 18:24 08/04/25 20:56 Ipratropium/Albuterol 3 Ml Neb INH 3 ml RTQID PRN Administration Shortness of Air/Wheezing Budesonide 0.5 mg 08/04/25 19:00 08/05/25 20:00 Budesonide 0.5 Mg/2 Ml Neb INH Not Given RTBID ALONZO Carboxymethylcellulose 1 drops 08/04/25 18:29 08/05/25 09:00 Carboxymethylcellulose Ophth Drops EACHEYE 1 drops Q4HR PRN Administration Dry Eye Fluoxetine HCl 20 mg 08/05/25 09:00 08/05/25 09:00 Fluoxetine 10 Mg Capsule PO 20 mg DAILY ALONZO Administration Formoterol Fumarate 20 mcg 08/04/25 19:00 08/05/25 20:00 Formoterol Fumarate Neb 20 Mcg/2 Ml INH Not Given RTBID ALONZO Methylprednisolone 40 mg 08/04/25 21:00 08/05/25 22:18 Methylprednisolone Succinate 40 Mg/Ml Vial IVP 40 mg BID ALONZO Administration Ondansetron HCl 4 mg 08/04/25 18:24 08/05/25 17:51 Ondansetron Odt 4 Mg Tablet TL 4 mg Q6HR PRN Administration Nausea / Vomiting Ondansetron HCl 4 mg 08/04/25 18:24 Ondansetron 4 Mg/2 Ml Vial IVP Q6HR PRN Nausea / Vomiting Azelastine 0.05 % 1 each 08/04/25 21:00 08/05/25 22:19 Drops EACHEYE Not Given BID ALONZO Potassium Chloride 20 meq 08/04/25 18:00 08/05/25 09:00 Potassium Chloride 20 Meq/15 Ml Udc PO 20 meq DAILYWM ALONZO Administration Sodium Chloride 10 ml 08/04/25 18:24 Sodium Chloride Flush 0.9% 10 Ml Syringe IVP PRN PRN NEEDED PER PROVIDER ORDERS Sodium Chloride 10 ml 08/04/25 18:24 08/06/25 00:58 Sodium Chloride Flush 0.9% 10 Ml Syringe IVP Not Given 0100,0900,1700 [facility] Objective Vital Signs/Intake & Output Reviewed Vital Signs: Yes Vital Signs: Vital Signs x48h Temp Pulse Resp BP Pulse Ox 08/06/25 00:20 98.6 F 85 16 126/81 98 Intake & Output: Intake & Output 08/03/25 08/04/25 08/05/25 08/06/25 23:59 23:59 23:59 23:59 Intake Total 1000 / 1000 1000 / 1000 2818 / 2818 997 / 997 Output Total 0 / 0 0 / 0 1900 / 1900 Balance 1000 / 1000 1000 / 1000 2818 / 2818 -903 / -903 Weight (kg) 58.967 kg 57.5 kg Objective General Appearance: positive No acute distress, Alert and Other (thin, frail woman, some temporal wasting noted); negative Anxious Eyes Bilateral: positive Normal inspection, PERRL and EOMI ENT: positive ENT inspection nml, Pharynx nml and Dry mucous membranes Neck: positive Nml inspection, Thyroid nml and No JVD Respiratory: positive Chest non-tender, No respiratory distress and Breath sounds nml; negative Wheezes, Rales or Rhonchi Cardiovascular: positive Regular rate & rhythm, No murmur and No gallop; negative Tachycardia or Systolic murmur Abdomen: positive No organomegaly, No distention and Tenderness (diffuse and mild); negative Guarding, Hepatomegaly or Splenomegaly Back: positive Nml inspection; negative CVA tenderness (R) or CVA tenderness (L) Skin: positive Color nml, No rash, Warm and Dry Extremities: positive Non-tender, Full ROM, Nml appearance and Pedal edema (2+ bilateral pitting edema ) Neurologic/Psychiatric: positive Oriented x3, Motor nml and Mood/affect nml Lab Results 08/06/25 04:37 08/06/25 04:37 Other Labs: Lab Results x24hrs 10/26/25 10/25/25 10/24/25 Range/Units 04:37 05:20 18:40 WBC 7.7 (4.8-10.8) x10^3/uL RBC 3.43 L (4.20-5.40) 10^6/uL Hgb 10.7 L (12.0-16.0) g/dL Hct 33.2 L (37.0-47.0) % MCV 96.8 (81.0-99.0) fL MCH 31.2 H (27.0-31.0) pg MCHC 32.2 (32.0-36.0) g/dL RDW 15.1 H (12.0-15.0) % Plt Count 189 (130-450) 10^3/uL MPV 8.6 (7.9-10.8) fL Sodium 133 L 131 L (135-145) mmol/L Potassium 4.3 3.7 (3.5-4.5) mmol/L Chloride 103 101 (101-111) mmol/L Carbon Dioxide 27 27 (21-32) mmol/L Anion Gap 3.0 L 3.0 L (6-13) BUN 4 L 3 L (6-20) mg/dL Creatinine 0.7 0.6 (0.6-1.3) mg/dL Estimated GFR (MDRD) 81 L 97 (>89) Glucose 206 H 175 H (74-104) mg/dL Calcium 7.2 L 7.0 L (8.5-10.3) mg/dL Magnesium 1.7 1.8 (1.7-2.3) mg/dL Total Bilirubin 0.5 (0.2-1.0) mg/dL AST 120 H (10-42) IU/L ALT 58 (10-60) IU/L Alkaline Phosphatase 143 H (42-121) IU/L Total Protein 4.0 L (6.4-8.9) g/dL Albumin 2.0 L (3.2-5.5) g/dL Globulin 2.0 L (2.1-4.2) g/dL Albumin/Globulin Ratio 1.0 (1.0-2.2) Stl C. cayetanensis PCR Not Detected (Not Detected) Stool Rotavirus A PCR Not Detected (Not Detected) Stl Adenov F 40/41 PCR Not Detected (Not Detected) Stool Astrovirus (PCR) Not Detected (Not Detected) Stool Campylobacter PCR Not Detected (Not Detected) Stl C. diff Tox A/B PCR Not Detected (Not Detected) Stool Cryptosporidium PCR Not Detected (Not Detected) Stl Sh Tox Pr E STEC PCR Not Detected (Not Detected) Stool E coli O157 PCR Not applicable (Not Detected) Stl Enterotoxigenic E PCR Not Detected (Not Detected) Stool EPEC (PCR) Not Detected (Not Detected) Stl E. histolytica PCR Not Detected (Not Detected) Stool Giardia Lamblia PCR Not Detected (Not Detected) Stl P. shigelloides PCR Not Detected (Not Detected) Stool Salmonella PCR Not Detected (Not Detected) Stool Sapovirus (PCR) Not Detected (Not Detected) Stl Shigella/EIEC PCR Not Detected (Not Detected) St Y.enterocolitica PCR Not Detected (Not Detected) Stool Vibrio (PCR) Not Detected (Not Detected) Stl Vibrio cholerae PCR Not Detected (Not Detected) Stl Enteroaggr Ecoli PCR Not Detected (Not Detected) Stl Norovirus GI/GII PCR Not Detected (Not Detected) Diagnostic Imaging Diagnostic Imaging Results: positive Final report reviewed Assessment/Plan Problem List (1) Severe ulcerative colitis: (2) Acute abdominal pain: (3) Acute dehydration: (4) Diarrhea: Impression: Patient presented with worsening symptoms of ulcerative colitis for the past 2-3 weeks decreased appetite, recurrent nausea and vomiting, as well as persistent diarrhea with blood in stool. CT abdomen/pelvis shows diffuse large bowel thickening with small volume ascites, suggestive of colitis. Ultrasound of the abdomen shows that the gallbladder is distended, without stones. ER provider spoke with hollow core door frame assembler; recommends Solu-Medrol 40 mg every 12 hours, and transition to prednisone 40 mg when improved abdominal pain, diarrhea, improved appetite. Needs urgent follow-up in the outpatient setting with hollow core door frame assembler, Dr. Green. Gastroenterology office notes reviewed from Dr. Roche. Patient has ulcerative pancolitis. This was diagnosed in 2009. She had been doing relatively well with this until 2023. Her last colonoscopy was in 2024, in s showed severe sigmoid diverticulosis. She was taking mesalamine 4 tablets by mouth daily with food, exemestane 25 mg daily, as well as Prilosec 10 mg daily. Improving - decreasing frequency of bowel movements, and abdominal pain. Will transition to oral prednisone tomorrow. Continue GI soft diet. Qualifiers: Diarrhea type: unspecified type Qualified Code(s): R19.7 - Diarrhea, unspecified (5) Colovaginal fistula: Impression: CT abdomen/pelvis did show some fluid within the vagina. She is having some stool output from her vagina as well. Discussed with the patient that she may have a colovaginal fistula, and this will likely put her at increased risk for infections, worsened pain. Will likely need general surgery follow-up in the outpatient. She demonstrated understanding. (6) Hyponatremia: Impression: Improving. Continue gentle IV fluid rehydration. Trend daily. Avoid overcorrection of 6-8 mill equivalents over 24 hours. (7) Hypokalemia: Impression: Resolved. Due to decreased p.o. intake, continue repletion, continue to trend daily. (8) Swelling of lower extremity: Impression: Likely due to hypoalbuminemia, due to her chronic malnutrition, which would be leading to third spacing of fluids with decreased oncotic pressure. Continue gentle IV fluid rehydration at this time. Elevate legs when able. Dietitian consulted for assistance with nutrition. Echo ordered to rule out any new onset heart failure. Creatinine within normal limits. Unlikely nephrotic syndrome. (9) Chronic kidney disease (CKD): Impression: Creatinine stable, and at baseline. Avoid nephrotoxins, continue gentle IV fluid rehydration. 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 Patient asymptomatic, will monitor off telemetry. (11) Rheumatoid arthritis: Impression: Stable, chronic condition. Qualifiers: Rheumatoid arthritis location: other site Rheumatoid factor presence: u nspecified presence Qualified Code(s): M06.9 - Rheumatoid arthritis, unspecified (12) Asthma: Impression: Continue home inhalers, Wixela. Continue DuoNebs as needed for shortness of breath. Not in acute exacerbation. Qualifiers: Asthma complication type: uncomplicated Asthma persistence: unspecified Asthma severity: mild Qualified Code(s): J45.909 - Unspecified asthma, uncomplicated
[2025-08-06] MEDS: IPRATROPIUM/ALBUTEROL 3 ML NEB INH ONE (11:09)
--- NOTE | 2025-08-06 15:21 | ADVANCE CARE PLANNING NOTE ---
Advance Care Planning Planning Encounter Date: 08/06/25 Time: 15:19 Purpose: Establish overall goals of care, fill out POLST. Parties in Attendance: Patient, patient's , patient's daughter. Decisional Capacity of the Patient: Fully decisional. Diagnosis for Encounter (1) Severe ulcerative colitis: Summary: Patient presented with worsening symptoms of ulcerative colitis for the past 2-3 weeks decreased appetite, recurrent nausea and vomiting, as well as pers istent diarrhea with blood in stool. CT abdomen/pelvis shows diffuse large bowel thickening with small volume ascites, suggestive of colitis. Ultrasound of the abdomen shows that the gallbladder is distended, without stones. ER provider spoke with head filter tank tender helper; recommends Solu-Medrol 40 mg every 12 hours, and transition to prednisone 40 mg when improved abdominal pain, diarrhea, improved appetite. Needs urgent follow-up in the outpatient setting with head filter tank tender helper, Dr. Green. Gastroenterology office notes reviewed from Dr. Roche. Patient has ulcerative pancolitis. This was diagnosed in 2009. She had been doing relatively well with this until 2023. Her last colonoscopy was in 2024, in s showed severe sigmoid diverticulosis. She was taking mesalamine 4 tablets by mouth daily with food, exemestane 25 mg daily, as well as Prilosec 10 mg daily. Improving - decreasing frequency of bowel movements, and abdominal pain. Will transition to oral prednisone tomorrow. Continue GI soft diet. Encounter Subjective/Patient's Story: Patient is a 79-year-old female with a history of ulcerative colitis, colovaginal fistula who presents with a flare-up of her ulcerative colitis. She is currently on IV steroids. Advancing diet slowly. 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 It was quite a fulfilling career for her. She decided to work a little bit less when she had children. She raised 2 children. She had been doing well until about 15 years ago when she was diagnosed with ulcerative colitis. She is hopeful to be started on biologic to help with her frequent flareups. She has a good support system. Her is present at bedside, as is her daughter, who are both actively involved in her care. She was previously fully active. However in the last few weeks, she has gotten progressively weaker requiring a walker and wheelchair. She is very clear about her overall goals of care. She is a DO NOT RESUSCITATE. She is okay with full medical management, and would be okay with ventilation temporarily. We filled out her POLST together with family at bedside. Code Status: Do Not Attempt Resuscitation Time spent on advance care plannin
--- NOTE | 2025-08-06 22:02 | ECHO Report ---
Version: 1 Study ID: [id number] Adult Echocardiogram Report Name: SUNNI WALTON Study Date: 08/05/2025, 1: 06 PM Patient Location: [id number] HR: 85 bpm : 1945 (MM/DD/YYYY) Gender: Female Height: 65 in Age: 79 Years Weight: 127 lb BSA: 1.63 m² Reason For Study: LE swelling History: No previous study. Hx of breast ca. Interpretation Summary Global left ventricular systolic function is normal. The visual left ventricular ejection fraction is estimated at 50 to 55%. The right ventricle is normal in size and function. No concerning cardiac valve disease noted. Left Ventricle: The left ventricle is normal in size. There is normal left ventricular wall thickness. No thrombus seen in the left ventricle. The visual left ventricular ejection fraction is estimated at 50 to 55%. Global left ventricular systolic function is normal. Assessment of left ventricular filling pressure is indeterminate. Right Ventricle: The right ventricle is normal in size and function. TAPSE is consistent with normal right ventricular function. The tricuspid annular plane systolic excursion (TAPSE) measurement is 1.7 cm. Aortic Valve: The aortic valve is mildly calcified. The aortic valve is trileaflet. No hemodynamically significant valvular aortic stenosis. Trace aortic regurgitation is present. Mitral Valve: The mitral valve is visually normal in structure and function. No evidence of mitral stenosis is seen. There is trace mitral regurgitation. Tricuspid Valve: The tricuspid valve is normal in structure and function. There is no tricuspid stenosis. Mild tricuspid regurgitation present. Pulmonic Valve: The pulmonic valve is normal in structure and function. There is no pulmonic valvular stenosis. Mild pulmonic valvular regurgitation is present. Left Atrium: The left atrial size is normal. Right Atrium: Right atrial size is normal. The inferior vena cava appears normal. Atrial Septum: The interatrial septum appears normal, without evidence of shunt by 2D imaging and color Doppler. Aorta: The ascending aorta is normal in size. Aortic arch not imaged. The sinuses of Valsalva are normal in size. Pulmonary Artery: The pulmonary artery is normal size. The pulmonary artery systolic pressure is normal. Inferior vena cava dynamics indicate normal right atrial pressures. The right ventricular systolic pressure is 27mmHg. Pericardium/Pleural Space: There is no pericardial effusion. Left Ventricle IVSd: 0.73 cm LVIDd: 4.5 cm LVPWd: 0.68 cm LVIDs: 3.5 cm ESV(sp4-el): 51.8 ml Right Ventricle TAPSE: 1.70 cm RV S Sai: 11.5 cm/sec Atria LA dimension: 4.8 cm LAV(MOD-sp4): 27.9 ml LAV(MOD-sp2): 24.6 ml Diastolic Function MV E max sai: 47.9 cm/sec MV A max sai: 96.2 cm/sec Aortic Valve LVOT diam: 1.99 cm LV V1 mean P.58 mmHg LV V1 mean: 59.9 cm/sec LV V1 VTI: 16.8 cm Ao V2 VTI: 25.7 cm Ao mean P.5 mmHg Ao V2 mean: 88.1 cm/sec LV V1 max: 84.2 cm/sec LV V1 max P.8 mmHg Ao max P.8 mmHg Ao V2 max: 120.8 cm/sec Mitral Valve MV max P.7 mmHg MV V2 max: 108.4 cm/sec MV mean P.53 mmHg MV V2 mean: 52.9 cm/sec MV V2 VTI: 17.1 cm Tricuspid Valve TR max P.3 mmHg TR max sai: 246.3 cm/sec TV max P.3 mmHg Aorta Ao root diam: 2.8 cm MMode/2D Measurements & Calculations Ao root diam: 2.8 cm BMI: 21.1 kilograms/m² [facility] 1.63 m² ESV(sp4-el): 51.8 ml IVSd: 0.73 cm LA A4C-A/L: 17.7 cm² LA dimension: 4.8 cm LA ESV-A/L: 46.5 ml LA Vol Index: 31.9 ml/m² LAV(MOD-sp2): 24.6 ml LAV(MOD-sp4): 27.9 ml LVIDd: 4.5 cm LVIDs: 3.5 cm LVOT diam: 1.99 cm LVPWd: 0.68 cm RA A4Cs: 12.6 cm² TAPSE: 1.70 cm Doppler Measurements & Calculations Ao max P.8 mmHg Ao mean P.5 mmHg Ao V2 max: 120.8 cm/sec Ao V2 mean: 88.1 cm/sec Ao V2 VTI: 25.7 cm Lat E/e': 13.4 LV V1 max: 84.2 cm/sec LV V1 max P.8 mmHg LV V1 mean: 59.9 cm/sec LV V1 mean P.58 mmHg LV V1 VTI: 16.8 cm Med E/e': 11.8 MV A max sai: 96.2 cm/sec MV DVI-pr: 0.50 MV E max sai: 47.9 cm/sec MV max P.7 mmHg MV mean P.53 mmHg MV V2 max: 108.4 cm/sec MV V2 mean: 52.9 cm/sec MV V2 VTI: 17.1 cm PA max P.34 mmHg PA V2 max: 76.5 cm/sec RV S Sai: 11.5 cm/sec TR max P.3 mmHg TR max sai: 246.3 cm/sec TV max P.3 mmHg Other Measurements & Calculations Ao root area: 6.3 cm² GEORGE(I,D): 2.03 cm² GEORGE(V,D): 2.17 cm² EDV(Teich): 94.2 ml EF(sp-el): 50.0 % EF(Teich): 47.5 % ESV(Teich): 49.4 ml FS: 23.8 % LVOT area: 3.1 cm² MV E/A: 0.50 MVA(VTI): 3.0 cm² SV(LVOT): 52.1 ml MD Arpita Kong 08/06/2025, 10: 02 PM Ordering Physician: Enid Gutierrez Referring Physician: Cristina Wolfe Performed By: DEAN
[2025-08-07 05:50] LABS: HCT - HEMATOCRIT 33.0 % (37.0-47.0); HGB - HEMOGLOBIN 10.8 g/dL (12.0-16.0); MEAN PLATELET VOLUME 8.4 fL (7.9-10.8); PLT - PLATELET COUNT 201.0 10^3/uL (130-450); RED CELL DISTRIBUTION WIDTH 15.2 % (12.0-15.0)
[2025-08-07 06:08] LABS: BUN - BLOOD UREA NITROGEN 7.0 mg/dL (6-20); CARBON DIOXIDE - CO2 24.0 mmol/L (21-32); CREATININE 0.7 mg/dL (0.6-1.3); GFR - MDRD 81.0 (>89)
[2025-08-07] MEDS: ONDANSETRON 4 MG/2 ML VIAL IVP PRN (08:50)
--- NOTE | 2025-08-07 09:25 | PROVIDER PROGRESS NOTE ---
Subjective Subjective Subjective: Patient is a 79-year-old female with a history of ulcerative colitis, new colovaginal fistula who presented with abdominal pain. Spoke with her reservoir engineer in the outpatient setting, who recommends admission and treatment for ulcerative colitis flareup with steroids. Patient is still having some persistent abdominal pain, located in her epigastric region. She has improved nausea, but is still receiving a few doses of Zofran daily. She has had no episodes of emesis in the last 24 to 48 hours. She is hungry and eats her meals, and then has some nausea and pain after. Current Medications Current Medications Current Medications: Current Medications Generic Name Dose Route Start Last Admin Trade Name Freq PRN Reason Stop Dose Admin Acetaminophen 650 mg 08/04/25 18:24 Acetaminophen 325 Mg Tablet PO Q4HR PRN Pain 1 to 4, or Fever Albuterol/Ipratropium 3 ml 08/04/25 18:24 08/06/25 19:41 Ipratropium/Albuterol 3 Ml Neb INH 3 ml RTQID PRN Administration Shortness of Air/Wheezing Budesonide 0.5 mg 08/04/25 19:00 08/06/25 19:41 Budesonide 0.5 Mg/2 Ml Neb INH 0.5 mg RTBID ALONZO Administration Carboxymethylcellulose 1 drops 08/04/25 18:29 08/05/25 09:00 Carboxymethylcellulose Ophth Drops EACHEYE 1 drops Q4HR PRN Administration Dry Eye Fluoxetine HCl 20 mg 08/05/25 09:00 08/07/25 08:50 Fluoxetine 10 Mg Capsule PO 20 mg DAILY ALONZO Administration Formoterol Fumarate 20 mcg 08/04/25 19:00 08/06/25 19:41 Formoterol Fumarate Neb 20 Mcg/2 Ml INH 20 mcg RTBID ALONZO Administration Ondansetron HCl 4 mg 08/04/25 18:24 08/06/25 17:31 Ondansetron Odt 4 Mg Tablet TL 4 mg Q6HR PRN Administration Nausea / Vomiting Ondansetron HCl 4 mg 08/04/25 18:24 08/07/25 08:50 Ondansetron 4 Mg/2 Ml Vial IVP 4 mg Q6HR PRN Administration Nausea / Vomiting Azelastine 0.05 % 1 each 08/04/25 21:00 08/07/25 08:51 Drops EACHEYE Not Given BID ALONZO Potassium Chloride 20 meq 08/04/25 18:00 08/07/25 08:51 Potassium Chloride 20 Meq/15 Ml Udc PO 20 meq DAILYWM ALONZO Administration Prednisone 40 mg 08/07/25 08:00 08/07/25 08:56 Prednisone 20 Mg Tablet PO Not Given DAILYWM ALONZO Sodium Chloride 10 ml 08/04/25 18:24 Sodium Chloride Flush 0.9% 10 Ml Syringe IVP PRN PRN NEEDED PER PROVIDER ORDERS Sodium Chloride 10 ml 08/04/25 18:24 08/07/25 08:50 Sodium Chloride Flush 0.9% 10 Ml Syringe IVP 10 ml 0100,0900,1700 ALONZO Administration Objective Vital Signs/Intake & Output Reviewed Vital Signs: Yes Vital Signs: Vital Signs x48h Temp Pulse Resp BP Pulse Ox 08/07/25 07:59 98.1 F 93 18 127/82 98 Intake & Output: Intake & Output 08/04/25 08/05/25 08/06/25 08/07/25 23:59 23:59 23:59 23:59 Intake Total 1000 / 1000 2818 / 2818 2675 / 2675 120 / 120 Output Total 0 / 0 0 / 0 1900 / 1900 0 / 0 Balance 1000 / 1000 2818 / 2818 775 / 775 120 / 120 Weight (kg) 57.5 kg Objective General Appearance: positive No acute distress, Alert and Other (thin, frail woman, some temporal wasting noted); negative Anxious Eyes Bilateral: positive Normal inspection, PERRL and EOMI ENT: positive ENT inspection nml, Pharynx nml and Dry mucous membranes Neck: positive Nml inspection, Thyroid nml and No JVD Respiratory: positive Chest non-tender, No respiratory distress and Breath sounds nml; negative Wheezes, Rales or Rhonchi Cardiovascular: positive Regular rate & rhythm, No murmur and No gallop; negative Tachycardia or Systolic murmur Abdomen: positive No organomegaly, No distention and Tenderness (diffuse and mild); negative Guarding, Hepatomegaly or Splenomegaly Back: positive Nml inspection; negative CVA tenderness (R) or CVA tenderness (L) Skin: positive Color nml, No rash, Warm and Dry Extremities: positive Non-tender, Full ROM, Nml appearance and Pedal edema (2+ bilateral pitting edema ) Neurologic/Psychiatric: positive Oriented x3, Motor nml and Mood/affect nml Lab Results 08/07/25 05:30 08/07/25 05:30 Other Labs: Lab Results x24hrs 08/07/25 08/06/25 Range/Units 05:30 11:40 WBC 11.2 H (4.8-10.8) x10^3/uL RBC 3.48 L (4.20-5.40) 10^6/uL Hgb 10.8 L (12.0-16.0) g/dL Hct 33.0 L (37.0-47.0) % MCV 94.8 (81.0-99.0) fL MCH 31.0 (27.0-31.0) pg MCHC 32.7 (32.0-36.0) g/dL RDW 15.2 H (12.0-15.0) % Plt Count 201 (130-450) 10^3/uL MPV 8.4 (7.9-10.8) fL Sodium 131 L (135-145) mmol/L Potassium 4.1 (3.5-4.5) mmol/L Chloride 104 (101-111) mmol/L Carbon Dioxide 24 (21-32) mmol/L Anion Gap 3.0 L (6-13) BUN 7 (6-20) mg/dL Creatinine 0.7 (0.6-1.3) mg/dL Estimated GFR (MDRD) 81 L (>89) Glucose 103 (74-104) mg/dL Calcium 7.7 L (8.5-10.3) mg/dL Magnesium 1.8 (1.7-2.3) mg/dL Troponin I High Sens 5.7 (2.3-14.8) ng/L Diagnostic Imaging Diagnostic Imaging Results: positive Final report reviewed Assessment/Plan Problem List (1) Severe ulcerative colitis: (2) Acute abdominal pain: (3) Acute dehydration: (4) Diarrhea: Impression: Patient presented with worsening symptoms of ulcerative colitis for the past 2-3 weeks decreased appetite, recurrent nausea and vomiting, as well as persistent diarrhea with blood in stool. CT abdomen/pelvis shows diffuse large bowel thickening with small volume ascites, suggestive of colitis. Ultrasound of the abdomen shows that the gallbladder is distended, without stones. ER provider spoke with reservoir engineer; recommends Solu-Medrol 40 mg every 12 hours, and transition to prednisone 40 mg when improved abdominal pain, diarrhea, improved appetite. Needs urgent follow-up in the outpatient setting with reservoir engineer, Dr. Green. Gastroenterology office notes reviewed from Dr. Roche. Patient has ulcerative pancolitis. This was diagnosed in 2009. She had been doing relatively well with this until 2023. Her last colonoscopy was in 2024, in showed severe sigmoid diverticulosis. She was taking mesalamine 4 tablets by mouth daily with food, exemestane 25 mg daily, as well as Prilosec 10 mg daily. Decreasing frequency of bowel movements, but still having some abdominal pain. Continue IV Solumedrol just once a day today. Can likely transition to oral prednisone tomorrow. Continue GI soft diet. This acute illness has caused worsening debility. PT evaluation ordered. Qualifiers: Diarrhea type: unspecified type Qualified Code(s): R19.7 - Diarrhea, unspecified (5) Colovaginal fistula: Impression: CT abdomen/pelvis did show some fluid within the vagina. She is having some stool output from her vagina as well. Discussed with the patient that she may have a colovaginal fistula, and this will likely put her at increased risk for infections, worsened pain. Will likely need general surgery follow-up in the outpatient. I briefly discussed patient informally with Dr. Lexus Hernandez. She was seen in the outpatient with her in 05/05 for a lumpectomy. She recommends likely follow-up in the outpatient with colorectal surgery for this fistula as she does have underlying ulcerative colitis. (6) Hyponatremia: Impression: Stable. Trend daily. Avoid overcorrection of 6-8 mill equivalents over 24 hours. (7) Hypokalemia: Impression: Resolved. Due to decreased p.o. intake, continue repletion, continue to trend daily. (8) Swelling of lower extremity: Impression: Likely due to hypoalbuminemia, due to her chronic malnutrition, which would be leading to third spacing of fluids with decreased oncotic pressure. Elevate legs when able. Dietitian consulted for assistance with nutrition. Echo ordered to rule out any new onset heart failure - no cardiomyopathy or valvular disease noted. Creatinine within normal limits. Unlikely nephrotic syndrome. (9) Chronic kidney disease (CKD): Impression: Creatinine stable, and at baseline. Avoid nephrotoxins. 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 Patient asymptomatic, will monitor off telemetry. (11) Rheumatoid arthritis: Impression: Stable, chronic condition. Qualifiers: Rheumatoid arthritis location: other site Rheumatoid factor presence: u nspecified presence Qualified Code(s): M06.9 - Rheumatoid arthritis, unspecified (12) Asthma: Impression: Continue home inhalers, Wixela. Continue DuoNebs as needed for shortness of breath. Not in acute exacerbation. Qualifiers: Asthma severity: mild Asthma persistence: unspecified Asthma complication type: uncomplicated Qualified Code(s): J45.909 - Unspecified asthma, uncomplicated
[2025-08-07] MEDS: ACETAMINOPHEN 325 MG TABLET PO PRN (10:13)
[2025-08-07] MEDS: methylPREDNISolone SUCCINATE 40 MG/ML VIAL IVP SCH (10:16)
--- NOTE | 2025-08-07 17:12 | PT Plan of Care ---
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 She was hospitalized with dehydration, colovaginal fistula, and severe ulcerative colitis. Please see chart for complete medical hx. The pt was received resting comfortably supine in bed and presented today with decreased B UE and LE strength, decreased activity tolerance, and increased abdominal pain all of which limited her tolerance during functional mobility. Her overall tolerance throughout this assessment was limited by weakness and fatigue with postural hypotension as noted above. At this time recommend continued skilled PT intervention while in the acute setting and DC to SNF for further rehab once pt medically stable as she s functioning below her baseline level of independent. This plan was discussed with the pt and she was in agreement with this. At the end of the session the pt was supine in bed call light in reach, bed alarm on, and all needs met. MD updated on pt's status and DC rec. PATIENT/FAMILY GOALS Patient/Family Goals: To regain strength to be able to walk and return home GOALS Improve supine to sit to:: Minimal Assist Improve sit to stand to:: Minimal Assist Improve pivot transfer ability to:: Minimal Assist Improve sit to supine to:: Minimal Assist Improve gait ability to:: Min A Advance Assistive Device to:: Front Wheeled Walker Increase distance walked to (in feet):: 25 PLAN Frequency: 1-2x/day Duration: Until goals are met DISCHARGE RECOMMENDATIONS Discharge Location: [facility] Facility Support/Services Needed: With assist Other Discharge Equipment: pt owns all recommended DME Transport Needs at Discharge: Personal vehicle
[2025-08-07] MEDS: MAG HYDROX/AL HYDROX/SIMETH 30 ML UDC PO PRN (18:23)
[2025-08-08 05:09] LABS: HCT - HEMATOCRIT 31.8 % (37.0-47.0); HGB - HEMOGLOBIN 10.4 g/dL (12.0-16.0); MEAN PLATELET VOLUME 8.4 fL (7.9-10.8); PLT - PLATELET COUNT 182.0 10^3/uL (130-450); RED CELL DISTRIBUTION WIDTH 15.0 % (12.0-15.0)
[2025-08-08 05:23] LABS: BUN - BLOOD UREA NITROGEN 9.0 mg/dL (6-20); CARBON DIOXIDE - CO2 28.0 mmol/L (21-32); CREATININE 0.7 mg/dL (0.6-1.3); GFR - MDRD 81.0 (>89)
--- NOTE | 2025-08-08 07:40 | PROVIDER PROGRESS NOTE ---
Subjective Prog Note Date Prog Note Date: 08/08/25 Prog Note Time: 07:38 Subjective Subjective: Patient clinically stable. Hemoglobin has remained stable around 10.5. Leukocytosis, slight and rising at 13. No fevers or other localizing signs of infection. BMP reviewed, sodium 131, creatinine stable at 0.7. Calcium corrects to normal with account for her albumin of 2 on arrival. Remainder of her electrolytes are normal. Transition to oral prednisone today. Patient is having quite a bit of abdominal distention. She is having liquidy stool. Still some blood. No focal abdominal pain. No fevers or chills. Current Medications Current Medications Current Medications: Current Medications Generic Name Dose Route Start Last Admin Trade Name Freq PRN Reason Stop Dose Admin Acetaminophen 650 mg 08/04/25 18:24 08/07/25 10:13 Acetaminophen 325 Mg Tablet PO 650 mg Q4HR PRN Administration Pain 1 to 4, or Fever Al Hydroxide/Mg Hydroxide 30 ml 08/07/25 16:40 08/07/25 18:23 Mag Hydrox/Al Hydrox/Simeth 30 Ml Udc PO 30 ml Q4HR PRN Administration INDIGESTION Albuterol/Ipratropium 3 ml 08/04/25 18:24 08/06/25 19:41 Ipratropium/Albuterol 3 Ml Neb INH 3 ml RTQID PRN Administration Shortness of Air/Wheezing Budesonide 0.5 mg 08/04/25 19:00 08/08/25 07:07 Budesonide 0.5 Mg/2 Ml Neb INH 0.5 mg RTBID ALONZO Administration Carboxymethylcellulose 1 drops 08/04/25 18:29 08/05/25 09:00 Carboxymethylcellulose Ophth Drops EACHEYE 1 drops Q4HR PRN Administration Dry Eye Fluoxetine HCl 20 mg 08/05/25 09:00 08/07/25 08:50 Fluoxetine 10 Mg Capsule PO 20 mg DAILY ALONZO Administration Formoterol Fumarate 20 mcg 08/04/25 19:00 08/08/25 07:07 Formoterol Fumarate Neb 20 Mcg/2 Ml INH 20 mcg RTBID ALONZO Administration Ondansetron HCl 4 mg 08/04/25 18:24 08/06/25 17:31 Ondansetron Odt 4 Mg Tablet TL 4 mg Q6HR PRN Administration Nausea / Vomiting Ondansetron HCl 4 mg 08/04/25 18:24 08/07/25 08:50 Ondansetron 4 Mg/2 Ml Vial IVP 4 mg Q6HR PRN Administration Nausea / Vomiting Azelastine 0.05 % 1 each 08/04/25 21:00 08/07/25 21:19 Drops EACHEYE 1 each BID ALONZO Administration Potassium Chloride 20 meq 08/04/25 18:00 08/07/25 08:51 Potassium Chloride 20 Meq/15 Ml Udc PO 20 meq DAILYWM ALONZO Administration Prednisone 40 mg 08/08/25 08:00 Prednisone 20 Mg Tablet PO DAILYWM ALONZO Sodium Chloride 10 ml 08/04/25 18:24 Sodium Chloride Flush 0.9% 10 Ml Syringe IVP PRN PRN NEEDED PER PROVIDER ORDERS Sodium Chloride 10 ml 08/04/25 18:24 08/08/25 02:16 Sodium Chloride Flush 0.9% 10 Ml Syringe IVP 10 ml 0100,0900,1700 ALONZO Administration Objective Vital Signs/Intake & Output Reviewed Vital Signs: Yes Vital Signs: Vital Signs x48h Temp Pulse Pulse Resp BP Pulse Ox 08/08/25 07:08 80 20 08/07/25 23:53 36.4 C L 90 16 120/91 H 98 Intake & Output: Intake & Output 08/05/25 08/06/25 08/07/25 08/08/25 23:59 23:59 23:59 23:59 Intake Total 2818 / 2818 2675 / 2675 500 / 500 Output Total 0 / 0 1900 / 1900 895 / 895 300 / 300 Balance 2818 / 2818 775 / 775 -395 / -395 -300 / -300 Objective Comments/Other: GEN: No acute distress HEENT: NC/AT, normal appearance of external ears and nose. Hearing baseline. Mucous membranes moist Cardiac: Regular rate and rhythm, no murmurs. Euvolemic on exam. Pulm: Lungs CTA bilaterally, no cough, no wheezes. Normal effort on room air Abdomen: Soft, nontender, distended. Diffuse tenderness to deep palpation. No rebound tenderness or guarding. No palpable stool burden. Neuro: Face symmetric, CN II through XII intact grossly. No focal neurologic deficits. Psych: Mood euthymic with congruent affect. Reasonable insight. Lab Results 08/08/25 04:52 08/08/25 04:52 Other Labs: Lab Results x24hrs 08/08/25 Range/Units 04:52 WBC 13.0 H (4.8-10.8) x10^3/uL RBC 3.31 L (4.20-5.40) 10^6/uL Hgb 10.4 L (12.0-16.0) g/dL Hct 31.8 L (37.0-47.0) % MCV 96.1 (81.0-99.0) fL MCH 31.4 H (27.0-31.0) pg MCHC 32.7 (32.0-36.0) g/dL RDW 15.0 (12.0-15.0) % Plt Count 182 (130-450) 10^3/uL MPV 8.4 (7.9-10.8) fL Sodium 131 L (135-145) mmol/L Potassium 4.4 (3.5-4.5) mmol/L Chloride 101 (101-111) mmol/L Carbon Dioxide 28 (21-32) mmol/L Anion Gap 2.0 L (6-13) BUN 9 (6-20) mg/dL Creatinine 0.7 (0.6-1.3) mg/dL Estimated GFR (MDRD) 81 L (>89) Glucose 91 (74-104) mg/dL Calcium 7.7 L (8.5-10.3) mg/dL Magnesium 1.8 (1.7-2.3) mg/dL Diagnostic Imaging Diagnostic Imaging Results: positive Read independently Diagnostic Imaging Comments: Abdominal x-ray today with nonobstructive gas pattern. Suspect she has some stool in her distal colon. Pending final read. Assessment/Plan Problem List (1) Severe ulcerative colitis: (2) Acute abdominal pain: (3) Acute dehydration: (4) Diarrhea: Impression: Improving. Transition to oral prednisone today. She is having more abdominal distention today with some gas. X-ray was done 08/08 personally read by me. Nonobstructive gas pattern. Pending final read. Patient with longstanding history of ulcerative pancolitis diagnosed 2009. Recently changed her gastroenterology to Marya Akins. Has not yet seen her. Has been well-controlled for the last 15 years on mesalamine. Knows that she is nearing the point of needing a biologic. Presented with decreased appetite, recurrent nausea and vomiting and persistent diarrhea was bloody. Was started on Solu-Medrol with improvement. Transitioned 08/08 to oral prednisone. - Continue GI soft diet - Continue prednisone 40 mg indefinitely until follow-up with gastroenterology - If pain remains stable on oral prednisone, likely stable for discharge 08/08 - Start daily MiraLAX Qualifiers: Diarrhea type: unspecified type Qualified Code(s): R19.7 - Diarrhea, unspecified (5) Colovaginal fistula: Impression: Stable. New diagnosis for the patient. Evident colovaginal fistula seen on CT abdomen. She has been having stool output from her vagina for the last 4 to 6 weeks prior to arrival. Nothing to acutely. Will need outpatient follow-up with colorectal surgery. Likely would not recommend acute intervention during her UC flare. (6) Hyponatremia: Impression: Stable around 130. Suspect reset osmostat. No acute intervention needed. No longer trending. (7) Hypokalemia: Impression: Remains resolved Present on arrival, likely due to enteric losses and decreased p.o. intake. (8) Swelling of lower extremity: Impression: Mild improved. No history of heart failure. Echo this admission without cardiomyopathy or valvular disease. Normal EF. Differential includes vascular insufficiency and hypoalbuminemia - Continue encouraged nutrition - Appreciate dietitian assistance - Conservative management with elevation and compression stockings (9) Chronic kidney disease (CKD): Impression: Per history. GFR has remained around 80 this admission. 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 Doing well overall. - Continue daily magnesium supplementation - No longer trending electrolytes (11) Rheumatoid arthritis: Impression: Stable, chronic condition. On steroids as above. Qualifiers: Rheumatoid arthritis location: other site Rheumatoid factor presence: u nspecified presence Qualified Code(s): M06.9 - Rheumatoid arthritis, unspecified (12) Asthma: Impression: Stable. Good saturations on room air. No wheezing on exam. Home inhalers include fluticasone-salmeterol. - Continue formulary equivalent of Wixela - As needed DuoNebs available, has not needed Qualifiers: Asthma complication type: uncomplicated Asthma persistence: unspecified Asthma severity: mild Qualified Code(s): J45.909 - Unspecified asthma, uncomplicated
[2025-08-08] MEDS: MAG HYDROX/AL HYDROX/SIMETH 30 ML UDC PO SCH (18:16)
--- NOTE | 2025-08-09 07:39 | PROVIDER PROGRESS NOTE ---
Subjective Prog Note Date Prog Note Date: 08/09/25 Prog Note Time: 07:37 Subjective Subjective: Patient remains clinically stable overnight. No significant pain. She has been having ongoing abdominal fullness. No new labs this morning. At patient's request, her Mylanta was scheduled out with meals, she uses this after each meal. Last night, we discussed that she did not had a bowel movement throughout the day and her abdominal distention and liquidy stool prior to this as well as her x-ray which does seem to show some stool burden all were suggestive of possible constipation with overflow diarrhea. She was eager to trial MiraLAX last night. She is feeling tired throughout the day. She did not sleep well last night she says. She was up all night with bloody diarrhea. She has more abdominal cramping. She says her pain is much improved when she first came in. Not as distended across her abdomen. Still not much of an appetite. Discussed giving some maintenance fluids overnight. She is eager to get to rehab and I think that still safe to do so. Her blood counts were stable this morning. Will check 1 more time tomorrow morning out of an abundance of caution. Vital signs remained stable. Current Medications Current Medications Current Medications: Current Medications Generic Name Dose Route Start Last Admin Trade Name Freq PRN Reason Stop Dose Admin Acetaminophen 650 mg 08/04/25 18:24 08/07/25 10:13 Acetaminophen 325 Mg Tablet PO 650 mg Q4HR PRN Administration Pain 1 to 4, or Fever Al Hydroxide/Mg Hydroxide 30 ml 08/07/25 16:40 08/08/25 14:54 Mag Hydrox/Al Hydrox/Simeth 30 Ml Udc PO 30 ml Q4HR PRN Administration INDIGESTION Al Hydroxide/Mg Hydroxide 30 ml 08/08/25 18:15 08/08/25 18:16 Mag Hydrox/Al Hydrox/Simeth 30 Ml Udc PO 30 ml TIDWM ALONZO Administration Albuterol/Ipratropium 3 ml 08/04/25 18:24 08/06/25 19:41 Ipratropium/Albuterol 3 Ml Neb INH 3 ml RTQID PRN Administration Shortness of Air/Wheezing Budesonide 0.5 mg 08/04/25 19:00 08/08/25 20:33 Budesonide 0.5 Mg/2 Ml Neb INH Not Given RTBID ALONZO Carboxymethylcellulose 1 drops 08/04/25 18:29 08/05/25 09:00 Carboxymethylcellulose Ophth Drops EACHEYE 1 drops Q4HR PRN Administration Dry Eye Enoxaparin Sodium 40 mg 08/09/25 09:00 Enoxaparin 40 Mg/0.4 Ml Syringe SUBQ DAILY ALONZO Fluoxetine HCl 20 mg 08/05/25 09:00 08/08/25 09:27 Fluoxetine 10 Mg Capsule PO 20 mg DAILY ALONZO Administration Formoterol Fumarate 20 mcg 08/04/25 19:00 08/08/25 20:33 Formoterol Fumarate Neb 20 Mcg/2 Ml INH Not Given RTBID ALONZO Ondansetron HCl 4 mg 08/04/25 18:24 08/06/25 17:31 Ondansetron Odt 4 Mg Tablet TL 4 mg Q6HR PRN Administration Nausea / Vomiting Ondansetron HCl 4 mg 08/04/25 18:24 08/07/25 08:50 Ondansetron 4 Mg/2 Ml Vial IVP 4 mg Q6HR PRN Administration Nausea / Vomiting Azelastine 0.05 % 1 each 08/04/25 21:00 08/08/25 21:19 Drops EACHEYE 1 each BID ALONZO Administration Polyethylene Glycol 17 gm 08/08/25 17:37 08/08/25 18:39 Polyethylene Glycol 3350 17 Gm Packet PO 17 gm DAILY PRN Administration Bowel Protocol Potassium Chloride 20 meq 08/04/25 18:00 08/08/25 09:26 Potassium Chloride 20 Meq/15 Ml Udc PO 20 meq DAILYWM ALONZO Administration Prednisone 40 mg 08/08/25 08:00 08/08/25 09:27 Prednisone 20 Mg Tablet PO 40 mg DAILYWM ALONZO Administration Sodium Chloride 10 ml 08/04/25 18:24 Sodium Chloride Flush 0.9% 10 Ml Syringe IVP PRN PRN NEEDED PER PROVIDER ORDERS Sodium Chloride 10 ml 08/04/25 18:24 08/09/25 00:41 Sodium Chloride Flush 0.9% 10 Ml Syringe IVP 10 ml 0100,0900,1700 ALONZO Administration Objective Vital Signs/Intake & Output Reviewed Vital Signs: Yes Vital Signs: Vital Signs x48h Temp Pulse Resp BP Pulse Ox 08/08/25 23:47 36.5 C 90 18 132/93 H 97 Intake & Output: Intake & Output 08/06/25 08/07/25 08/08/25 08/09/25 23:59 23:59 23:59 23:59 Intake Total 2675 / 2675 500 / 500 700 / 700 Output Total 1900 / 1900 895 / 895 1450 / 1450 150 / 150 Balance 775 / 775 -395 / -395 -750 / -750 -150 / -150 Objective Comments/Other: GEN: No acute distress HEENT: NC/AT, normal appearance of external ears and nose. Hearing baseline. Mucous membranes moist Cardiac: Regular rate and rhythm, no murmurs. Euvolemic on exam. Pulm: Lungs CTA bilaterally, no cough, no wheezes. Normal effort on room air Abdomen: Soft, nontender, nondistended. No rebound tenderness or guarding. Neuro: Face symmetric, CN II through XII intact grossly. No focal neurologic deficits. Psych: Mood euthymic with congruent affect. Reasonable insight. Lab Results 08/09/25 09:12 08/08/25 04:52 Other Labs: Lab Results x24hrs 08/08/25 Range/Units 04:52 WBC 13.0 H (4.8-10.8) x10^3/uL RBC 3.31 L (4.20-5.40) 10^6/uL Hgb 10.4 L (12.0-16.0) g/dL Hct 31.8 L (37.0-47.0) % MCV 96.1 (81.0-99.0) fL MCH 31.4 H (27.0-31.0) pg MCHC 32.7 (32.0-36.0) g/dL RDW 15.0 (12.0-15.0) % Plt Count 182 (130-450) 10^3/uL MPV 8.4 (7.9-10.8) fL Sodium 131 L (135-145) mmol/L Potassium 4.4 (3.5-4.5) mmol/L Chloride 101 (101-111) mmol/L Carbon Dioxide 28 (21-32) mmol/L Anion Gap 2.0 L (6-13) BUN 9 (6-20) mg/dL Creatinine 0.7 (0.6-1.3) mg/dL Estimated GFR (MDRD) 81 L (>89) Glucose 91 (74-104) mg/dL Calcium 7.7 L (8.5-10.3) mg/dL Magnesium 1.8 (1.7-2.3) mg/dL Diagnostic Imaging Diagnostic Imaging Results: positive Read independently Assessment/Plan Problem List (1) Severe ulcerative colitis: (2) Acute abdominal pain: (3) Acute dehydration: (4) Diarrhea: Impression: Overall stable. She had more diarrhea overnight last night, but received a dose of MiraLAX earlier in the day. I suspect this may have contributed more than failure of her steroids. She has been getting oral steroids for the last 2 days. Her pain is improved from admission. She still having multiple bloody bowel movements, however hemoglobin remained stable. Checked H/H this morning, Hgb up to 12.3 from 10.4. Overall improved. Leukocytosis of 13.1 stable on steroids. Patient with longstanding history of ulcerative pancolitis diagnosed 2009. Recently changed her gastroenterology to Marya Akins. Has not yet seen her. Has been well-controlled for the last 15 years on mesalamine. Knows that she is nearing the point of needing a biologic. Presented with decreased appetite, recurrent nausea and vomiting and persistent diarrhea was bloody. Was started on Solu-Medrol with improvement. Transitioned 08/08 to oral prednisone. - Continue GI soft diet - Continue prednisone 40 mg indefinitely until follow-up with gastroenterology - Stable for discharge, will check CBC 1 more time in the morning as she is going to [facility] - Discontinue MiraLAX - Will need follow-up with gastroenterology after discharge, Dr. 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 Evident colovaginal fistula seen on CT abdomen. She has been having stool output from her vagina for the last 4 to 6 weeks prior to arrival. Nothing to acutely. Will need outpatient follow-up with colorectal surgery. Likely would not recommend acute intervention during her UC flare. - Follow-up with colorectal surgery in [place] after discharge (6) Hyponatremia: Impression: Stable around 130. Suspect reset osmostat. No acute intervention needed. No longer trending. (7) Hypokalemia: Impression: Remains resolved Present on arrival, likely due to enteric losses and decreased p.o. intake. (8) Swelling of lower extremity: Impression: Mild improved. No history of heart failure. Echo this admission without cardiomyopathy or valvular disease. Normal EF. Differential includes vascular insufficiency vs hypoalbuminemia - Continue encouraged nutrition - Appreciate dietitian assistance - Conservative management with elevation and compression stockings (9) Chronic kidney disease (CKD): Impression: Per history. GFR has remained around 80 this admission. 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 Doing well overall. - Continue daily magnesium supplementation - No longer trending electrolytes (11) Rheumatoid arthritis: Impression: Stable, chronic condition. On steroids as above. Qualifiers: Rheumatoid arthritis location: other site Rheumatoid factor presence: u nspecified presence Qualified Code(s): M06.9 - Rheumatoid arthritis, unspecified (12) Asthma: Impression: Stable. Good saturations on room air. No wheezing on exam. Home inhalers include fluticasone-salmeterol. - Continue formulary equivalent of Wixela - As needed DuoNebs available, has not needed Qualifiers: Asthma complication type: uncomplicated Asthma persistence: unspecified Asthma severity: mild Qualified Code(s): J45.909 - Unspecified asthma, uncomplicated (13) Physical deconditioning: Impression: Patient with progressive physical deconditioning due to her acute illness. Has not been ambulatory. Independent in the community prior to this admission. She has been seen by PT and they are recommending her [facility] to [facility]. Case management following, discussed with them today. - Tentatively plan to discharge to [facility] for ongoing rehab on 08/10. - Continue to encourage good nutrition - Will give 1 L of IV maintenance fluids overnight 08/09 given enteric losses the night before and poor appetite today
[2025-08-09] MEDS: ENOXAPARIN 40 MG/0.4 ML SYRINGE SUBQ SCH (09:00)
[2025-08-09] MEDS ORDERED: COD LIVER OIL/ZINC OXIDE 113 GM TUBE TOP PRN (09:21)
[2025-08-09 09:25] LABS: HCT - HEMATOCRIT 37.4 % (37.0-47.0); HGB - HEMOGLOBIN 12.3 g/dL (12.0-16.0); MEAN PLATELET VOLUME 8.7 fL (7.9-10.8); PLT - PLATELET COUNT 221.0 10^3/uL (130-450); RED CELL DISTRIBUTION WIDTH 15.0 % (12.0-15.0)
[2025-08-09] MEDS: CHOLECALCIFEROL 25 MCG TABLET PO SCH (17:36)
[2025-08-09] MEDS: MULTIVITAMIN W/MINERALS TABLET PO SCH (17:37)
[2025-08-09] MEDS: DEXTROSE 5%-0.45% NACL 1,000 ML IV SCH (17:41)
[2025-08-10 06:03] LABS: HCT - HEMATOCRIT 32.0 % (37.0-47.0); HGB - HEMOGLOBIN 10.2 g/dL (12.0-16.0); MEAN PLATELET VOLUME 8.8 fL (7.9-10.8); PLT - PLATELET COUNT 198.0 10^3/uL (130-450); RED CELL DISTRIBUTION WIDTH 15.2 % (12.0-15.0)
--- NOTE | 2025-08-10 07:06 | Discharge Summary ---
"Discharge Summary Admit Date: 08/04/25 Discharge Date: 08/10/25 Discharging Provider: Maximo Hernandez Primary Care Provider: Nicolette Mitchell Code Status: Do Not Attempt Resuscitation Discharge Facility Name: [facility] DIAGNOSES Discharge Diagnoses with Status of Each Condition: ## Severe ulcerative colitis, improved ## Acute abdominal pain, improved ## Acute dehydration, resolved ## Diarrhea, improved Continue remained stable on oral prednisone. She is unclear when she will follow-up with her GI provider. Checked H/H this morning, Hgb up to 12.3 from 10.4. Overall improved. Leukocytosis was stable on steroids, but resolved completely as of 08/10. She was trialed on MiraLAX as she was having some abdominal distention, but this caused diarrhea. Has since been discontinued. Patient with longstanding history of ulcerative pancolitis diagnosed 2009. Recently changed her gastroenterology to Marya Akins. Has not yet seen her. Has been well-controlled for the last 15 years on mesalamine. Knows that she is nearing the point of needing a biologic. Presented with decreased appetite, recurrent nausea and vomiting and persistent diarrhea was bloody. Was started on Solu-Medrol with improvement. Transitioned 08/08 to oral prednisone. - Continue GI soft diet - Continue prednisone 40 mg indefinitely until follow-up with gastroenterology - Concern patient will be on high-dose prednisone for greater than 4 weeks. I will start her on PJP prophylaxis, DS Bactrim TIW - Check blood counts if exhibiting symptoms of anemia (hgb stable ~10.5 this admission), transfuse hgb<8. - Mylanta and symptomatic treatment for bowel distention and gas. - Will need follow-up with gastroenterology after discharge, Dr. Akins ## Colovaginal fistula New diagnosis for the patient. Evident colovaginal fistula seen on CT abdomen. She has been having stool output from her vagina for the last 4 to 6 weeks prior to arrival. Nothing to acutely. Will need outpatient follow-up with colorectal surgery. Likely would not recommend acute intervention during her UC flare. - Follow-up with colorectal surgery in [place] after discharge ## Swelling of lower extremity, improved. No history of heart failure. Echo this admission without cardiomyopathy or valvular disease. Normal EF. 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 Doing well overall. - Continue daily magnesium supplementation - No longer trending electrolytes ## Rheumatoid arthritis: Stable, chronic condition. On steroids as above. PJP ppx as above ## Asthma: Stable. Good saturations on room air. No wheezing on exam. Home inhalers include fluticasone-salmeterol. - Continue formulary equivalent of Wixela - As needed DuoNebs available, has not needed ## Physical deconditioning: Patient with progressive physical deconditioning due to her acute illness. Has not been ambulatory. Independent in the community prior to this admission. She has been seen by PT and [facility] Case management following, discussed with them today. - D/C to SNF for further rehab HPI History of Present Illness: Patient is a aureliano 79-year-old female with a history of ulcerative pancolitis who presents with worsening abdominal pain, nausea, vomiting, as well as frequent diarrhea with blood and mucus noted in it. Patient states that she has had worsening diarrhea for the last 2 to 3 weeks. She describes it as loose, with mucus and blood in it. She has up to 15 episodes a day. She states that this is very typical of her ulcerative colitis flares, although they are not very frequent. She presented to the ER on Thursday, she received some IV hydration and was sent home. However, at home, she continued to be weak, lightheaded, and dizzy. She almost fell, and so she decided to come in. She denies any fevers or chills. She describes her abdominal pain as severe, diffuse, and cramping, and severe. She has not had any nausea or vomiting in the last 12 hours. She has just had 2 episodes of loose stools in the last 12 hours. In the ER, she has been vitally stable, afebrile, normotensive, heart rate of 88-100, saturating 98% on room air with a normal respiratory rate. When she presented on 08/03, she had a leukocytosis of 11.4. Today, this is resolved to 8. Her hemoglobin has been stable around 10.5-11.2. Her sodium is low at 132, although it is improved from admission at 129. Her potassium is also low at 3.3. Her CRP is elevated at 6.2, and her calcium is low at 7.3. Her albumin is very low at 2.2. CT abdomen/pelvis shows colitis, as well as distended gallbladder. Abdominal ultrasound was also completed which shows sludge with no wall thickening. Initially, plan was to transfer patient to [facility] for evaluation by gastroenterology. Over, they have taken her off the transfer list, and as such, she was admitted here. ER provider did speak with test developer, Dr. Green who recommended the followingSolu-Medrol 40 mg every 12 hours, followed by prednisone 40 mg daily afterwards once there is improvement. She will need urgent follow-up in the outpatient once she is discharged. Past medical history includes breast cancer in remission, rheumatoid arthritis, asthma not on home oxygen, chronic dry eyes, depression. Medications include fluoxetine, Wixela inhaler, eyedrops. Allergies include penicillins, with effects being anaphylaxis. Surgical history includes cataract surgery. She has never had any abdominal surgeries before. Denies any alcohol use. Former tobacco use, 15-year pack history, quit in 1984. Occasional marijuana use in the past. 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 Lives with . Ambulates with walker. Daughter and son-in-law are close by and provide support. CONSULTS | PROCEDURES Consultations: PT, nutrition Procedures: Abdominal x-ray 08/10/2025 HOSPITAL COURSE Hospital Course: Patient was admitted with ulcerative colitis flare. She has been stable on mesalamine for several years prior to this. She has been noting that mesalamine is failing and she is in works of getting on a biologic with her GI doctor. GI at [facility] was consulted by the ED who recommended induction with corticosteroids. Initially started on IV Solu-Medrol at 40 mg twice daily. This improved her symptoms dramatically. Stepdown to IV Solu-Medrol once daily then to prednisone 40 mg once daily. She is tolerated this well. Her diarrhea has improved. Her blood counts remained stable with hemoglobin around 10.5. She was seen by PT and they are recommending she discharge to SNF for deconditioning. She is accepted to [facility]. She will go there for further rehab. She needs follow-up with GI in the community and has plans to start on biologic once approved by insurance. Finally, her hospitalization was complicated by a acute urinary retention. Trial of void was attempted on 08/10 and was successful. She has not required any further straight cath since then. I have asked the [facility] facility to continue bladder scans if she is symptomatic or unable to void. She may need replacement of her indwelling catheter. In that case she would need follow-up with urology as well. ALLERGIES Allergies Allergy/AdvReac Type Severity Reaction Status Date / Time Penicillins Allergy Respiratory Verified 07/31/25 15:21 MEDICATIONS Ambulatory Orders Medication Instructions Recorded Confirmed fluticasone 250 mcg-salmeterol 50 1 ea inhalation ANISH Y 02/02/24 08/04/25 mcg/dose blistr powdr for inhalation (Wixela Inhub) peg 400-propylene glycol (PF) 0.4 1 ea ophthalmic (eye ) PRN PRN As 02/02/24 08/04/25 %-0.3 % eye drops in a dropperette Needed Per Provider Orders (Systane Ultra (PF)) azelastine 0.05 % eye drops 1 drp ophthalmic (eye) BID #6 mL 12/12/24 08/04/25 ciprofloxacin HCl 500 mg tablet 500 mg PO BID #20 tabs 07/31/25 08/04/25 fluoxetine 20 mg tablet 20 mg PO DAILY 08/04/2507/13 aluminum-mag hydroxide-simethicone 30 ml PO TIDWM #3,0 00 mL 08/11/25 200 mg-200 mg-20 mg/5 mL oral susp (Mag-Al Plus) cholecalciferol (vitamin D3) 25 50 mcg (2 x 25 mcg (1, 000 unit)) 08/11/25 mcg (1,000 unit) tablet PO DAILY #30 tabs prednisone 20 mg tablet 40 mg (2 x 20 mg) PO DAILYWM #60 08/11/25 tabs sulfamethoxazole 800 1 tab PO MoWeFr #16 tabs mg-trimethoprim 160 mg tablet PHYSICAL EXAM AT DISCHARGE Vital Signs: Vital Signs x48h Temp Pulse Resp BP Pulse Ox 08/11/25 08:00 36.3 C L 94 22 140/90 H 98 Physical Exam Other/Comments: GEN: No acute distress HEENT: NC/AT, normal appearance of external ears and nose. Hearing baseline. Mucous membranes moist Cardiac: Regular rate and rhythm, no murmurs. Euvolemic on exam. Pulm: Lungs CTA bilaterally, no cough, no wheezes. Normal effort on room air Abdomen: Soft, nontender, nondistended. No rebound tenderness or guarding. Neuro: Face symmetric, CN II through XII intact grossly. No focal neurologic deficits. Psych: Mood euthymic with congruent affect. Reasonable insight. LABS 08/10/25 05:41 08/10/25 06:11 FOLLOW UP Follow Up: GI, Dr. Akins in 1-2 weeks F/U with Primary Care in 2-4 weeks after d/c from SNF TIME SPENT Time Spent in Discharge (Minutes): 42 Discharge Plan Discharge Condition: Stable Prescriptions: New prednisone 20 mg Tablet 40 mg PO DAILYWM Qty: 60 0RF sulfamethoxazole-trimethoprim 800-160 mg Tablet 1 tab PO MoWeFr Qty: 16 0RF cholecalciferol (vitamin D3) 25 mcg (1,000 unit) Tablet 50 mcg PO DAILY Qty: 30 0RF alum-mag hydroxide-simeth [Mag-Al Plus] 200-200-20 mg/5 mL Suspension 30 ml PO TIDWM Qty: 3000 0RF Continued azelastine 0.05 % drops 1 drp ophthalmic (eye) BID Qty: 6 3RF Rx Instructions: Apply in the AM and PM fluticasone propion-salmeterol [Wixela Inhub] 1 EACH blister with device 1 ea inhalation DAILY Systane Ultra (PF) 1 EACH dropperette 1 ea ophthalmic (eye) PRN PRN (Reason: As Needed Per Provider Orders) ciprofloxacin HCl 500 mg tablet 500 mg PO BID Qty: 20 0RF fluoxetine 20 mg tablet 20 mg PO DAILY Patient Comments: TAKE 1 TABLET BY MOUTH DAILY Activity Restrictions: Activity as Tolerated Diet: Regular Health Concerns: You are admitted for a flare of your ulcerative colitis. You were started on steroids in coordination with your test developer. You should continue on your current dose of steroids until you are able to follow-up with your test developer. Glad your abdominal pain is feeling better. I hope your symptoms continue to stay controlled until you can start on a steroid sparing agent with your outpatient providers. Medications: * Continue current corticosteroid regimen. Follow-up with your test developer to start tapering steroids within the next 4 to 6 weeks. * I have started you on an antibiotic to help prevent risk of infection while you are on steroids * You have also been started on a vitamin D supplement * Initiate steroid-sparing maintenance therapy (e.g., thiopurines, biologics such as anti-TNF agents or vedolizumab) in consultation with gastroenterology. This is otherwise known as a biologic. * If on 5-ASA (mesalamine), continue at maintenance dosing if tolerated and not contraindicated.[2] * Monitor for and report any new or worsening symptoms, including fever, abdominal pain, rectal bleeding, or signs of infection. Infection Prevention: * Monitor for signs of infection, as corticosteroids increase risk. * Ensure up-to-date vaccinations as appropriate. * Practice good hand hygiene. Nutrition: * Encourage a balanced, high-protein diet to support healing and muscle recovery. Rehabilitation and Physical Activity: * Participate in a structured rehabilitation program tailored to current functional status and deconditioning. Resistance and aerobic exercise are recommended to prevent further functional decline and promote recovery. * Begin with low-intensity, short-duration sessions, progressing as tolerated. Resistance training should target major muscle groups, starting with 1 set of 1015 repetitions and increasing as able. * Monitor for fatigue, dizziness, or other symptoms during exercise. Follow-Up: * Schedule follow-up with gastroenterology within 12 weeks of discharge to reassess disease activity, review medication taper, and adjust maintenance therapy as needed. * Monitor laboratory parameters (CBC, electrolytes, liver function, inflammatory markers) per protocol. When to Seek Immediate Medical Attention: * Severe abdominal pain, persistent vomiting, high fever, profuse rectal bleeding, or signs of dehydration. * New or worsening shortness of breath, chest pain, or leg swelling. It was a pleasure taking care of you. I hope you continue to do well. Print Language: Faroese Stand Alone Forms: SNF Discharge Follow-up Care: NICOLETTE MITCHELL APRN [Primary Care Provider, Family Practice] Elsie Akins DO [Physician No Access, Gastroenterology] Referral Note: Call to ensure you have a scheduled follow-up Vitals documented within 30 minutes of discharge?: Yes"
[2025-08-10 07:36] LABS: BUN - BLOOD UREA NITROGEN 8.0 mg/dL (6-20); CARBON DIOXIDE - CO2 28.0 mmol/L (21-32); CREATININE 0.6 mg/dL (0.6-1.3); GFR - MDRD 97.0 (>89)
--- NOTE | 2025-08-10 13:28 | XRAY Report ---
PROCEDURE: XR Abdomen 1 V INDICATIONS: Abdominal pain, distension TECHNIQUE: 2 views of the abdomen were acquired. COMPARISON: None. FINDINGS: Surgical changes and devices: None. Bowel: The bowel gas pattern is normal. Stool load within normal limits. Soft tissues: No masses; visualized solid organ contours appear normal in size. No suspicious abdominal calcifications.Surgical clips overlie the right breast. Bones: No suspicious bony abnormalities. Dystrophic calcifications overlie the left femoral neck and greater trochanter. Degenerative of the lower lumbar spine. IMPRESSION: No acute abdominal pathology. Reviewed by: Antonino Lindsay MD on 08/10/2025 1:25 PM PDT Approved by: Antonino Lindsay MD on 08/10/2025 1:25 PM PDT Station ID: [id number]
--- NOTE | 2025-08-10 17:55 | PROVIDER PROGRESS NOTE ---
Subjective Prog Note Date Prog Note Date: 08/10/25 Prog Note Time: 17:52 Subjective Subjective: No acute events overnight. Patient's leukocytosis is resolved. Her blood counts remain stable at 10.2. Blood glucose 159. Patient's diarrhea slowed down today. She is feeling better. Denies fevers or chills. Denies chest pain or dyspnea. Current Medications Current Medications Current Medications: Current Medications Generic Name Dose Route Start Last Admin Trade Name Freq PRN Reason Stop Dose Admin Acetaminophen 650 mg 08/04/25 18:24 08/07/25 10:13 Acetaminophen 325 Mg Tablet PO 650 mg Q4HR PRN Administration Pain 1 to 4, or Fever Al Hydroxide/Mg Hydroxide 30 ml 08/07/25 16:40 08/08/25 14:54 Mag Hydrox/Al Hydrox/Simeth 30 Ml Udc PO 30 ml Q4HR PRN Administration INDIGESTION Al Hydroxide/Mg Hydroxide 30 ml 08/08/25 18:15 08/10/25 16:57 Mag Hydrox/Al Hydrox/Simeth 30 Ml Udc PO 30 ml TIDWM ALONZO Administration Albuterol/Ipratropium 3 ml 08/04/25 18:24 08/10/25 13:53 Ipratropium/Albuterol 3 Ml Neb INH 3 ml RTQID PRN Administration Shortness of Air/Wheezing Budesonide 0.5 mg 08/04/25 19:00 08/10/25 11:59 Budesonide 0.5 Mg/2 Ml Neb INH Not Given RTBID ALONZO Carboxymethylcellulose 1 drops 08/04/25 18:08/05/25 09:00 Carboxymethylcellulose Ophth Drops EACHEYE 1 drops Q4HR PRN Administration Dry Eye Cholecalciferol 50 mcg 08/09/25 17:00 08/10/25 08:28 Cholecalciferol 25 Mcg Tablet PO 50 mcg DAILY ALONZO Administration Enoxaparin Sodium 40 mg 08/09/25 09:00 08/10/25 08:32 Enoxaparin 40 Mg/0.4 Ml Syringe SUBQ 40 mg DAILY ALONZO Administration Fluoxetine HCl 20 mg 08/05/25 09:00 08/10/25 08:29 Fluoxetine 10 Mg Capsule PO 20 mg DAILY ALNOZO Administration Formoterol Fumarate 20 mcg 08/04/25 19:00 08/10/25 12:00 Formoterol Fumarate Neb 20 Mcg/2 Ml INH Not Given RTBID ALONZO Multivitamins/Minerals 1 tab 08/09/25 17:00 08/10/25 08:29 Multivitamin W/Minerals Tablet PO 1 tab DAILYWM ALONZO Administration Ondansetron HCl 4 mg 08/04/25 18:24 08/06/25 17:31 Ondansetron Odt 4 Mg Tablet TL 4 mg Q6HR PRN Administration Nausea / Vomiting Ondansetron HCl 4 mg 08/04/25 18:24 08/07/25 08:50 Ondansetron 4 Mg/2 Ml Vial IVP 4 mg Q6HR PRN Administration Nausea / Vomiting Azelastine 0.05 % 1 each 08/04/25 21:00 08/10/25 08:33 Drops EACHEYE 1 each BID ALONZO Administration Polyethylene Glycol 17 gm 08/08/25 17:37 08/08/25 18:39 Polyethylene Glycol 3350 17 Gm Packet PO 17 gm DAILY PRN Administration Bowel Protocol Potassium Chloride 20 meq 08/04/25 18:00 08/10/25 08:34 Potassium Chloride 20 Meq/15 Ml Udc PO 20 meq DAILYWM ALONZO Administration Prednisone 40 mg 08/08/25 08:00 08/10/25 08:29 Prednisone 20 Mg Tablet PO 40 mg DAILYWM ALONZO Administration Sodium Chloride 10 ml 08/04/25 18:24 Sodium Chloride Flush 0.9% 10 Ml Syringe IVP PRN PRN NEEDED PER PROVIDER ORDERS Sodium Chloride 10 ml 08/04/25 18:24 08/10/25 16:57 Sodium Chloride Flush 0.9% 10 Ml Syringe IVP 10 ml 0100,0900,1700 ALONZO Administration Zinc Oxide 113 gm 08/09/25 09:21 Cod Liver Oil/Zinc Oxide 113 Gm Tube TOP PRN PRN Skin Care Objective Vital Signs/Intake & Output Reviewed Vital Signs: Yes Vital Signs: Vital Signs x48h Temp Pulse Pulse Resp BP Pulse Ox 08/10/25 16:17 36.8 C 104 H 20 130/77 98 08/10/25 13:54 77 20 Intake & Output: Intake & Output 08/07/25 08/08/25 08/09/25 08/10/25 23:59 23:59 23:59 23:59 Intake Total 500 / 500 700 / 700 720 / 720 1580 / 1580 Output Total 895 / 895 1450 / 1450 900 / 900 275 / 275 Balance -395 / -395 -750 / -750 -180 / -180 1305 / 1305 Objective Comments/Other: GEN: No acute distress HEENT: NC/AT, normal appearance of external ears and nose. Hearing baseline. Mucous membranes moist Cardiac: Regular rate and rhythm, no murmurs. Euvolemic on exam. Pulm: Lungs CTA bilaterally, no cough, no wheezes. Normal effort on room air Abdomen: Soft, nontender, nondistended. No rebound tenderness or guarding. Neuro: Face symmetric, CN II through XII intact grossly. No focal neurologic deficits. Psych: Mood euthymic with congruent affect. Reasonable insight. Lab Results 08/10/25 05:41 08/10/25 06:11 Other Labs: Lab Results x24hrs 08/10/25 08/10/25 Range/Units 06:11 05:41 WBC 9.5 (4.8-10.8) x10^3/uL RBC 3.32 L (4.20-5.40) 10^6/uL Hgb 10.2 L (12.0-16.0) g/dL Hct 32.0 L (37.0-47.0) % MCV 96.4 (81.0-99.0) fL MCH 30.7 (27.0-31.0) pg MCHC 31.9 L (32.0-36.0) g/dL RDW 15.2 H (12.0-15.0) % Plt Count 198 (130-450) 10^3/uL MPV 8.8 (7.9-10.8) fL Sodium 131 L (135-145) mmol/L Potassium 3.6 (3.5-4.5) mmol/L Chloride 99 L (101-111) mmol/L Carbon Dioxide 28 (21-32) mmol/L Anion Gap 4.0 L (6-13) BUN 8 (6-20) mg/dL Creatinine 0.6 (0.6-1.3) mg/dL Estimated GFR (MDRD) 97 (>89) Glucose 159 H (74-104) mg/dL Calcium 7.1 L (8.5-10.3) mg/dL Diagnostic Imaging Diagnostic Imaging Results: positive Read independently Assessment/Plan Problem List (1) Severe ulcerative colitis: (2) Acute abdominal pain: (3) Acute dehydration: (4) Diarrhea: Impression: Diarrhea has improved since yesterday. She continues to remain stable on oral prednisone. Blood counts remain stable. Checked H/H this morning, Hgb up to 12.3 from 10.4. Overall improved. Leukocytosis was stable on steroids, but resolved completely as of 08/10. She was trialed on MiraLAX as she was having some abdominal distention, but this caused diarrhea. Has since been discontinued. Patient with longstanding history of ulcerative pancolitis diagnosed 2009. Recently changed her gastroenterology to Marya Akins. Has not yet seen her. Has been well-controlled for the last 15 years on mesalamine. Knows that she is nearing the point of needing a biologic. Presented with decreased appetite, recurrent nausea and vomiting and persistent diarrhea was bloody. Was started on Solu-Medrol with improvement. Transitioned 08/08 to oral prednisone. - Continue GI soft diet - Continue prednisone 40 mg indefinitely until follow-up with gastroenterology - No longer trending CBC - Mylanta and symptomatic treatment for bowel distention and gas. - Will need follow-up with gastroenterology after discharge, Dr. 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 Evident colovaginal fistula seen on CT abdomen. She has been having stool output from her vagina for the last 4 to 6 weeks prior to arrival. Nothing to acutely. Will need outpatient follow-up with colorectal surgery. Likely would not recommend acute intervention during her UC flare. - Follow-up with colorectal surgery in [place] after discharge (6) Hyponatremia: Impression: Stable around 130. Suspect reset osmostat. No acute intervention needed. No longer trending. - Recommend she get a repeat BMP 2-3 weeks after discharge to demonstrate stability (7) Hypokalemia: Impression: Resolved on last BMP. No longer trending. Present on arrival, likely due to enteric losses and decreased p.o. intake. (8) Swelling of lower extremity: Impression: Mild improved. No history of heart failure. Echo this admission without cardiomyopathy or valvular disease. Normal EF. Differential includes vascular insufficiency vs hypoalbuminemia - Continue encouraged nutrition - Appreciate dietitian assistance - Conservative management with elevation and compression stockings (9) Chronic kidney disease (CKD): Impression: Per history. GFR has remained around 80 this admission. 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 Doing well overall. - Continue daily magnesium supplementation - No longer trending electrolytes (11) Rheumatoid arthritis: Impression: Stable, chronic condition. On steroids as above. Qualifiers: Rheumatoid arthritis location: other site Rheumatoid factor presence: u nspecified presence Qualified Code(s): M06.9 - Rheumatoid arthritis, unspecified (12) Asthma: Impression: Stable. Good saturations on room air. No wheezing on exam. Home inhalers include fluticasone-salmeterol. - Continue formulary equivalent of Wixela - As needed DuoNebs available, has not needed Qualifiers: Asthma complication type: uncomplicated Asthma persistence: unspecified Asthma severity: mild Qualified Code(s): J45.909 - Unspecified asthma, uncomplicated (13) Physical deconditioning: Impression: Patient with progressive physical deconditioning due to her acute illness. Has not been ambulatory. Independent in the community prior to this admission. She has been seen by PT and they are recommending her discharge to [facility]. Case management following, discussed with them today. - Pending bed availability at [facility]. - Continue to encourage good nutrition
--- NOTE | 2025-08-11 07:22 | PROVIDER PROGRESS NOTE ---
Subjective Prog Note Date Prog Note Date: 08/11/25 Prog Note Time: 07:18 Subjective Subjective: No acute events overnight. Patient remains clinically stable. No new labs today. Patient had [place] catheter removed yesterday morning, and was able to have void throughout the day. No other signs of acute urinary retention. Unclear what precipitated her initial urinary retention. Patient remains reasonably well with good bowel function. Her abdominal pain has improved. She is having brown liquid stools. No fevers or chills. No chest pain or dyspnea. Current Medications Current Medications Current Medications: Current Medications Generic Name Dose Route Start Last Admin Trade Name Freq PRN Reason Stop Dose Admin Acetaminophen 650 mg 08/04/25 18:24 08/07/25 10:13 Acetaminophen 325 Mg Tablet PO 650 mg Q4HR PRN Administration Pain 1 to 4, or Fever Al Hydroxide/Mg Hydroxide 30 ml 08/07/25 16:40 08/11/25 01:51 Mag Hydrox/Al Hydrox/Simeth 30 Ml Udc PO 30 ml Q4HR PRN Administration INDIGESTION Al Hydroxide/Mg Hydroxide 30 ml 08/08/25 18:15 08/10/25 16:57 Mag Hydrox/Al Hydrox/Simeth 30 Ml Udc PO 30 ml TIDWM ALONZO Administration Albuterol/Ipratropium 3 ml 08/04/25 18:24 08/10/25 13:53 Ipratropium/Albuterol 3 Ml Neb INH 3 ml RTQID PRN Administration Shortness of Air/Wheezing Budesonide 0.5 mg 08/04/25 19:00 08/10/25 20:34 Budesonide 0.5 Mg/2 Ml Neb INH Not Given RTBID ALONZO Carboxymethylcellulose 1 drops 08/04/25 18:08/05/25 09:00 Carboxymethylcellulose Ophth Drops EACHEYE 1 drops Q4HR PRN Administration Dry Eye Cholecalciferol 50 mcg 08/09/25 17:00 08/10/25 08:28 Cholecalciferol 25 Mcg Tablet PO 50 mcg DAILY ALONZO Administration Enoxaparin Sodium 40 mg 08/09/25 09:00 08/10/25 08:32 Enoxaparin 40 Mg/0.4 Ml Syringe SUBQ 40 mg DAILY ALONZO Administration Fluoxetine HCl 20 mg 08/05/25 09:00 08/10/25 08:29 Fluoxetine 10 Mg Capsule PO 20 mg DAILY ALONZO Administration Formoterol Fumarate 20 mcg 08/04/25 19:00 08/10/25 20:34 Formoterol Fumarate Neb 20 Mcg/2 Ml INH Not Given RTBID ALONZO Multivitamins/Minerals 1 tab 08/09/25 17:00 08/10/25 08:29 Multivitamin W/Minerals Tablet PO 1 tab DAILYWM ALONZO Administration Ondansetron HCl 4 mg 08/04/25 18:24 08/11/25 01:52 Ondansetron Odt 4 Mg Tablet TL 4 mg Q6HR PRN Administration Nausea / Vomiting Ondansetron HCl 4 mg 08/04/25 18:24 08/10/25 19:41 Ondansetron 4 Mg/2 Ml Vial IVP 4 mg Q6HR PRN Administration Nausea / Vomiting Azelastine 0.05 % 1 each 08/04/25 21:00 08/10/25 21:16 Drops EACHEYE 1 each BID ALONZO Administration Polyethylene Glycol 17 gm 08/08/25 17:37 08/08/25 18:39 Polyethylene Glycol 3350 17 Gm Packet PO 17 gm DAILY PRN Administration Bowel Protocol Potassium Chloride 20 meq 08/04/25 18:00 08/10/25 08:34 Potassium Chloride 20 Meq/15 Ml Udc PO 20 meq DAILYWM ALONZO Administration Prednisone 40 mg 08/08/25 08:00 08/10/25 08:29 Prednisone 20 Mg Tablet PO 40 mg DAILYWM ALONZO Administration Sodium Chloride 10 ml 08/04/25 18:24 Sodium Chloride Flush 0.9% 10 Ml Syringe IVP PRN PRN NEEDED PER PROVIDER ORDERS Sodium Chloride 10 ml 08/04/25 18:24 08/11/25 00:32 Sodium Chloride Flush 0.9% 10 Ml Syringe IVP 10 ml 0100,0900,1700 ALONZO Administration Zinc Oxide 113 gm 08/09/25 09:21 Cod Liver Oil/Zinc Oxide 113 Gm Tube TOP PRN PRN Skin Care Objective Vital Signs/Intake & Output Reviewed Vital Signs: Yes Vital Signs: Vital Signs x48h Temp Pulse Resp BP Pulse Ox 08/11/25 00:12 36.7 C 98 20 126/89 99 Intake & Output: Intake & Output 08/08/25 08/09/25 08/10/25 08/11/25 23:59 23:59 23:59 23:59 Intake Total 700 / 700 720 / 720 2015 60 / 60 Output Total 1450 / 1450 900 / 900 275 / 275 Balance -750 / -750 -180 / -180 1741 / 1741 60 / 60 Objective Comments/Other: GEN: No acute distress HEENT: NC/AT, normal appearance of external ears and nose. Hearing baseline. Mucous membranes moist Cardiac: Regular rate and rhythm, no murmurs. Euvolemic on exam. Pulm: Lungs CTA bilaterally, no cough, no wheezes. Normal effort on room air Abdomen: Soft, nontender, nondistended. No rebound tenderness or guarding. Neuro: Face symmetric, CN II through XII intact grossly. No focal neurologic deficits. Psych: Mood euthymic with congruent affect. Reasonable insight. Lab Results 08/10/25 05:41 08/10/25 06:11 Other Labs: Lab Results x24hrs 08/10/25 Range/Units 06:11 Sodium 131 L (135-145) mmol/L Potassium 3.6 (3.5-4.5) mmol/L Chloride 99 L (101-111) mmol/L Carbon Dioxide 28 (21-32) mmol/L Anion Gap 4.0 L (6-13) BUN 8 (6-20) mg/dL Creatinine 0.6 (0.6-1.3) mg/dL Estimated GFR (MDRD) 97 (>89) Glucose 159 H (74-104) mg/dL Calcium 7.1 L (8.5-10.3) mg/dL Diagnostic Imaging Diagnostic Imaging Results: positive Final report reviewed and Read independently Diagnostic Imaging Comments: Abdominal x-ray from 10/08 was just read formally. No acute pathology. Normal bowel gas pattern. Corresponding with my initial review. Assessment/Plan Problem List (1) Severe ulcerative colitis: (2) Acute abdominal pain: (3) Acute dehydration: (4) Diarrhea: Impression: Continue remained stable on oral prednisone. She is unclear when she will follow-up with her GI provider. Checked H/H this morning, Hgb up to 12.3 from 10.4. Overall improved. Leukocytosis was stable on steroids, but resolved completely as of 08/10. She was trialed on MiraLAX as she was having some abdominal distention, but this caused diarrhea. Has since been discontinued. Patient with longstanding history of ulcerative pancolitis diagnosed 2009. Recently changed her gastroenterology to Marya Akins. Has not yet seen her. Has been well-controlled for the last 15 years on mesalamine. Knows that she is nearing the point of needing a biologic. Presented with decreased appetite, recurrent nausea and vomiting and persistent diarrhea was bloody. Was started on Solu-Medrol with improvement. Transitioned 08/08 to oral prednisone. - Continue GI soft diet - Continue prednisone 40 mg indefinitely until follow-up with gastroenterology - Concern patient will be on high-dose prednisone for greater than 4 weeks. I will start her on PJP prophylaxis, DS Bactrim TIW - No longer trending CBC - Mylanta and symptomatic treatment for bowel distention and gas. - Will need follow-up with gastroenterology after discharge, Dr. 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 Evident colovaginal fistula seen on CT abdomen. She has been having stool output from her vagina for the last 4 to 6 weeks prior to arrival. Nothing to acutely. Will need outpatient follow-up with colorectal surgery. Likely would not recommend acute intervention during her UC flare. - Follow-up with colorectal surgery in [place] after discharge (6) Hyponatremia: Impression: Stable around 130. Suspect reset osmostat. No acute intervention needed. No longer trending. - Recommend she get a repeat BMP 2-3 weeks after discharge to demonstrate stability (7) Hypokalemia: Impression: Resolved on last BMP. No longer trending. Present on arrival, likely due to enteric losses and decreased p.o. intake. (8) Swelling of lower extremity: Impression: Mild improved. No history of heart failure. Echo this admission without cardiomyopathy or valvular disease. Normal EF. Differential includes vascular insufficiency vs hypoalbuminemia - Continue encouraged nutrition - Appreciate dietitian assistance - Conservative management with elevation and compression stockings (9) Chronic kidney disease (CKD): Impression: Per history. GFR has remained around 80 this admission. 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 Doing well overall. - Continue daily magnesium supplementation - No longer trending electrolytes (11) Rheumatoid arthritis: Impression: Stable, chronic condition. On steroids as above. Qualifiers: Rheumatoid arthritis location: other site Rheumatoid factor presence: u nspecified presence Qualified Code(s): M06.9 - Rheumatoid arthritis, unspecified (12) Asthma: Impression: Stable. Good saturations on room air. No wheezing on exam. Home inhalers include fluticasone-salmeterol. - Continue formulary equivalent of Wixela - As needed DuoNebs available, has not needed Qualifiers: Asthma severity: mild Asthma persistence: unspecified Asthma complication type: uncomplicated Qualified Code(s): J45.909 - Unspecified asthma, uncomplicated (13) Physical deconditioning: Impression: Patient with progressive physical deconditioning due to her acute illness. Has not been ambulatory. Independent in the community prior to this admission. She has been seen by PT and they are recommending her discharge to half-way. Case management following, discussed with them today. - Pending bed availability at [facility]. - Continue to encourage good nutrition
[2025-08-11] MEDS: SULFAMETH/TRIMETH DS 800/160 MG TABLET PO SCH (10:12)
[2025-08-11 13:08] VITALS: BP 132/87; TEMP 97.5; O2SAT 95
== END 2025-08-11 13:10 | DRG 386 ==
LOC: ED 19:51 → MS2 08-04 16:37 → SUATTDRO 08-04 16:37 → MS2 08-04 17:54
PROVIDERS: ADMIT Internal Medicine; ATTEND Student in an Organized Health Care Education/Training Program
DX: J45.909 Unspecified asthma, uncomplicated; N18.9 Chronic kidney disease, unspecified; M06.9 Rheumatoid arthritis, unspecified; Z85.3 Personal history of malignant neoplasm of breast; E16.2 Hypoglycemia, unspecified; M79.89 Other specified soft tissue disorders; F02.80 Dementia in other diseases classified elsewhere, unspecified severity, without behavioral disturbance, psychotic disturbance, mood disturbance, and anxiety; I49.1 Atrial premature depolarization; R33.9 Retention of urine, unspecified; Z66 Do not resuscitate; E87.6 Hypokalemia; R07.89 Other chest pain; F02.83 Dementia in other diseases classified elsewhere, unspecified severity, with mood disturbance; K82.8 Other specified diseases of gallbladder; K51.00 Ulcerative (chronic) pancolitis without complications; Z87.891 Personal history of nicotine dependence; N82.3 Fistula of vagina to large intestine; R77.0 Abnormality of albumin; N18.2 Chronic kidney disease, stage 2 (mild); Z88.0 Allergy status to penicillin; R63.8 Other symptoms and signs concerning food and fluid intake; E87.1 Hypo-osmolality and hyponatremia; G30.9 Alzheimer's disease, unspecified; D72.829 Elevated white blood cell count, unspecified; H57.89 Other specified disorders of eye and adnexa; R79.89 Other specified abnormal findings of blood chemistry; E46 Unspecified protein-calorie malnutrition; K51.90 Ulcerative colitis, unspecified, without complications; E86.0 Dehydration; F32.A Depression, unspecified; E83.51 Hypocalcemia; Z68.21 Body mass index [BMI] 21.0-21.9, adult; Z79.899 Other long term (current) drug therapy